=== PATIENT | male | born 1950 | race Caucasian/White ===

== ENCOUNTER 2017-12-05 09:54 | Outpatient (CLI) | payer MEDICARE ==
[~2017-12-05 09:54] MED LIST: FURO-145 PO; GLYB5TAB7 PO; INSU100C7 SQ; LEVO500T90 PO
[2017-12-05] MEDS ORDERED: CARI350T27 PO (15:59)
[2017-12-05] MEDS ORDERED: TERA5CAP4 PO (15:59)
[2017-12-05] MEDS ORDERED: LEVO250T59 PO (15:59)
[2017-12-05] MEDS ORDERED: CARV12.52 PO (15:59)
[2017-12-05] MEDS ORDERED: BUME1TAB4 PO (15:59)
[2017-12-05] MEDS ORDERED: FLUD0.1T PO (15:59)
[2017-12-05] MEDS ORDERED: AMLO5TAB7 PO (15:59)
[2017-12-05] MEDS ORDERED: FURO40TA5 PO (15:59)
== END 2017-12-05 23:59 | disposition home health service (06) ==
LOC: WOU 09:54
PROVIDERS: ATTEND Podiatrist Foot & Ankle Surgery
DX: E11.621 Type 2 diabetes mellitus with foot ulcer (principal); L97.416 Non-pressure chronic ulcer of right heel and midfoot with bone involvement without evidence of necrosis; L97.516 Non-pressure chronic ulcer of other part of right foot with bone involvement without evidence of necrosis; L97.423 Non-pressure chronic ulcer of left heel and midfoot with necrosis of muscle; E11.22 Type 2 diabetes mellitus with diabetic chronic kidney disease; E11.40 Type 2 diabetes mellitus with diabetic neuropathy, unspecified; I12.9 Hypertensive chronic kidney disease with stage 1 through stage 4 chronic kidney disease, or unspecified chronic kidney disease; N18.9 Chronic kidney disease, unspecified; Z99.2 Dependence on renal dialysis; L03.116 Cellulitis of left lower limb; L03.115 Cellulitis of right lower limb; B95.2 Enterococcus as the cause of diseases classified elsewhere; B96.4 Proteus (mirabilis) (morganii) as the cause of diseases classified elsewhere; M72.6 Necrotizing fasciitis; M86.171 Other acute osteomyelitis, right ankle and foot; I89.0 Lymphedema, not elsewhere classified; S81.811A Laceration without foreign body, right lower leg, initial encounter; X58.XXXA Exposure to other specified factors, initial encounter; Y92.89 Other specified places as the place of occurrence of the external cause
CPT/HCPCS: 11043; 11044; 11047; 82962; 87070 ×2; 87075 ×2; 87076; 87077; 87186 ×2; A6253; A6402 ×3; G0463

== ENCOUNTER 2017-12-05 11:37 | Inpatient (IN) | payer MEDICARE ==
[~2017-12-05] VITALS: Ht 182.9 cm; Wt 106.1 kg
[2017-12-05 12:30] VITALS: BP 113/50
--- NOTE | 2017-12-05 13:24 | NUR ---
PER DR REID - ADMIT TO MED SURG PER [facility]. DX WET GANGRENE/OSTEOMYLITIS/ INFECTED FOOT ULCERATION, CONDITION STABLE, VITALS PER ROUTINE, VANCOMYCIN 1 G IV Q 12 HOURS, ZOSYN 3.375 GM IV Q 8 HOURS, PHARMACY TO DOSE BOTH, DAKINS 0.125%IRRIGATE TID PRADEEP FEET WITH WET TO DRY DRESSING, XRAY OF 3 VIEWS BILATERAL FEET, EKG, 1 CHEST XRAY, CBC CUFF SETTER LOCKSTITCH, PT, PTT, INR, HGA1C, SEDIMENTATION RATE, CRP
[2017-12-05] MEDS ORDERED: VANCOMYCIN 1 GM in IV NS 0.9% 250 ML IV SCH (13:30)
--- NOTE | 2017-12-05 14:00 | NUR ---
PATIENT STABLE. NONLABORED BREATHING NOTED ON ROOM AIR. NO SIGNS OF DISTRESS. DENYING CHEST PAIN. IV SITE ON RIGHT AC 20 PATENT AND INTACT. NO AV SHUNTS ON EXTREMITIES. RIGHT CHESTWALL HD CATHETER WITH DRESSING INTACT
[2017-12-05] MEDS ORDERED: VANCOMYCIN 1 GM in IV D5W 250 ML IV ONE (15:00)
[2017-12-05 15:48] LABS: ALBUMIN 1.8 g/dL (3.4-5.0); BILIRUBIN,TOTAL 0.4 mg/dL (0.2-1.0); CALCIUM, SERUM 8.1 mg/dL (8.5-10.1); CREATININE 4.5 mg/dL (0.6-1.3); POTASSIUM 3.3 mmol/L (3.5-5.1)
[2017-12-05 15:49] LABS: C-REACTIVE PROTEIN 13.1 mg/dL (0.0-0.9)
[2017-12-05] MEDS ORDERED: CARI350T27 PO (15:59)
[2017-12-05] MEDS ORDERED: BUME1TAB4 PO (15:59)
[2017-12-05] MEDS ORDERED: AMLO5TAB7 PO (15:59)
[2017-12-05] MEDS ORDERED: FURO40TA5 PO (15:59)
[2017-12-05] MEDS ORDERED: TERA5CAP4 PO (15:59)
[2017-12-05] MEDS ORDERED: CARV12.52 PO (15:59)
[2017-12-05] MEDS ORDERED: FLUD0.1T PO (15:59)
[2017-12-05] MEDS ORDERED: LEVO250T59 PO (15:59)
[2017-12-05 16:00] VITALS: BP 119/55
[2017-12-05 16:02] LABS: INR 1.08 (0.87-1.13)
[2017-12-05 16:05] LABS: EOSINOPHILS % (AUTO) 0.3 % (0.0-6.0); HEMATOCRIT 22 % (39-51); HEMOGLOBIN 7.2 g/dL (13.5-17.5); LYMPHOCYTES # (AUTO) 0.7 /CMM (0.8-4.8); LYMPHOCYTES % (AUTO) 5.2 % (20.0-44.0); MEAN CORPUSCULAR HGB CONC 33 g/dl (31.0-36.0); MEAN CORPUSCULAR VOLUME 82 fL (80-96); MONOCYTES # (AUTO) 0.6 /CMM (0.1-1.30); MONOCYTES % (AUTO) 4.1 % (2.0-12.0); NEUTROPHILS # (AUTO) 12.6 /CMM (1.8-8.9); NEUTROPHILS % (AUTO) 90.4 % (43.0-81.0); PLATELET COUNT (AUTO) 411 /CMM (150-450); RDW COEFFICIENT OF VARIATION 15.5 (11.5-15.0); RED BLOOD CELL COUNT(AUTO) 2.62 MIL/uL (4.5-6.0); WHITE BLOOD COUNT (AUTO) 13.9 K/uL (4.3-11.0)
--- NOTE | 2017-12-05 17:33 | NUR ---
SPOKE TO NOHELIA FROM PHARMACY- ADMINISTER 1 GM VANCO AFTER HEMODIALYSIS
[2017-12-05] MEDS ORDERED: PIPERACILLIN /TAZOBACTAM 3.375 G in IV D5W 100 ML IV SCH (18:00)
[2017-12-05] MEDS ORDERED: FEE PK DOSING 1 MIN EA MC ONE (18:15)
--- NOTE | 2017-12-05 18:25 | NUR ---
RN NOTES: AFIB 74 ON EKG. PATIENT STABLE. NONLABORE BREATHING NOTED ON ROOM AIR. DENYING CHEST PAIN. STABLE. TOÑO LU NP NOTIFIED
[2017-12-05 18:35] VITALS: BP 108/52
--- NOTE | 2017-12-05 18:42 | NUR ---
SPOKE TO JOYCE FROM PHARMACY, NEW DOSAGES OF ZOSYN AND VANCO TO BE ADMINISTERED AFTER DIALYSIS
[2017-12-05] MEDS ORDERED: ONDANSETRON HCL/PF 4 MG/2 ML VIAL IVP PRN (19:30)
[2017-12-05] MEDS ORDERED: ACETAMINOPHEN 325 MG TABLET PO PRN (19:30)
[2017-12-05] MEDS ORDERED: TEMAZEPAM 15 MG CAPSULE PO PRN (19:30)
[2017-12-05] MEDS ORDERED: HYDROCODONE/APAP 10/325MG 1 EA TABLET PO PRN (19:30)
[2017-12-05] MEDS ORDERED: MAGNESIUM HYDROXIDE 30 ML UDC PO PRN (19:30)
[2017-12-05] MEDS ORDERED: DEXTROSE 50%-WATER 50 ML DISP.SYRIN IV PRN (19:30)
[2017-12-05] MEDS ORDERED: MAG HYDROX/AL HYDROX/SIMETH 30 ML UDC PO PRN (19:30)
[2017-12-05] MEDS ORDERED: VANCOMYCIN 1.25 GM in IV D5W 500 ML IV ONE (19:30)
[2017-12-05] MEDS ORDERED: LORAZEPAM INJ 2 MG/ML VIAL IV PRN (19:30)
[2017-12-05] MEDS ORDERED: HYDROCODONE/APAP 5/325MG 1 EACH TABLET PO PRN (19:30)
[2017-12-05] MEDS ORDERED: CARISOPRODOL 350 MG TABLET PO PRN (19:30)
--- NOTE | 2017-12-05 19:40 | NUR ---
RN NOTES PATIENT ADMITTED FROM [facility], A PATIENT OF DR REID'S. SP WOUND DEBRIDEMENT TODAY ON RIGHT LATERAL SIDE OF FOOT WELL LEFT LATERAL SIDE OF LEFT FOOT- PER REPORT FROM WOUND CARE CLINIC NURSE. DRESSING INTACT. PATIENT DENYING PAIN. PATIENT STABLE THROUGHOUT SHIFT. IV SITE ON RIGHT AC PATENT AND INTACT. PATIENT PERRLA. AOX2-3. DENYING CHEST PAIN THROUGHOUT SHIFT. ABLE TO TOLERATE DIET. NO SIGNS OF ASPIRATION. PATIENT REFUSING SKIN PICTURES TO BE TAKEN. BENEFITS AND RISKS EXPLAINED. PATIENT AFEBRILE. THROUGHOUT SHIFT. TOLERATED DIALYSIS TODAY WITH AN OUTPUT OF 1.7L. VS WNL AFTER DIALYSIS. PERMCATH WITH DRESSING INTACT ON RIGHT CHEST WALL. BED IN LOWEST LOCKED POSITION. CALL LIGHT WITHIN REACH. ENDORSED TO NEXT SHIFT
[2017-12-05 20:00] VITALS: BP 107/56
[2017-12-05] MEDS ORDERED: EPOETIN ALFA (10,000 UNIT) 10,000 UNIT/ML VIAL IV ONE (20:00)
[2017-12-05] MEDS: PIPERACILLIN /TAZOBACTAM 2.25 G in IV NS 0.9% 50 ML IV SCH (21:21)
[2017-12-05] MEDS: BLOOD SUGAR DIAGNOSTIC 1 EACH STRIP IN SCH (22:10)
[2017-12-05] MEDS: INSULIN REGULAR, HUMAN 100 UNIT/ML 3 ML VIAL SQ PRN (23:03)
[2017-12-06] VITALS (7 sets, daily range): BP systolic 70–110; BP diastolic 32–56
--- NOTE | 2017-12-06 02:04 | NUR ---
MS RN NOTES 1 UNIT PRBC STARTED. VSS. AFEBRILE. WILL CONTINUE TO MONITOR.
--- NOTE | 2017-12-06 02:20 | NUR ---
MS RN NOTES 1ST UNIT PRBC TRANSFUSING WELL. NO S/SX OF TRANSFUSION RXN NOTED. VSS. AFEBRILE. WILL CONTINUE TO MONITOR.
--- NOTE | 2017-12-06 04:50 | NUR ---
MS RN NOTES 1ST UNIT PRBC COMPLETED. NO S/SX OF TRANSFUSION RXN NOTED. AFEBRILE. WILL CONTINUE TO MONITOR.
[2017-12-06] MEDS: PIPERACILLIN /TAZOBACTAM 2.25 G in IV NS 0.9% 50 ML IV SCH ×3 (05:05→21:06)
--- NOTE | 2017-12-06 05:26 | NUR ---
MS RN NOTES BP 70/32. NOTIFIED DR BENAVIDEZ FIBER DESIGN ENGINEER FOR [facility]. MD MADE AWARE RE PT'S CONDITION. WITH NEW ORDERS MADE. ORDERS NOTED AND CARRIED OUT. WILL CONTINUE TO MONITOR.
[2017-12-06] MEDS ORDERED: IV NS 0.9% 1,000 ML IV PRN (05:30)
[2017-12-06] MEDS ORDERED: IV NS 0.9% 250 ML IV ONE (05:30)
[2017-12-06] MEDS: BLOOD SUGAR DIAGNOSTIC 1 EACH STRIP IN SCH ×4 (06:06→21:06)
--- NOTE | 2017-12-06 06:30 | NUR ---
MS RN NOTES AWAKE & RESPONSIVE. NOT IN ANY DISTRESS. NO SOB NOTED. DENIES ANY PAIN OR DISCOMFORT AT THIS TIME. WITH IVF INFUSING WELL. AM CARE DONE. MONITORED ACCORDINGLY. CALL LIGHT WITHIN REACH. BED IN LOWEST POSITION. SR UP X 2 FOR SAFETY. WILL ENDORSE TO NEXT SHIFT.
[2017-12-06] MEDS: INSULIN REGULAR, HUMAN 100 UNIT/ML 3 ML VIAL SQ PRN ×2 (06:40→17:45)
[2017-12-06 07:16] LABS: EOSINOPHILS % (AUTO) 0.2 % (0.0-6.0); HEMATOCRIT 22 % (39-51); HEMOGLOBIN 7.3 g/dL (13.5-17.5); LYMPHOCYTES # (AUTO) 0.7 /CMM (0.8-4.8); LYMPHOCYTES % (AUTO) 3.7 % (20.0-44.0); MEAN CORPUSCULAR HGB CONC 33 g/dl (31.0-36.0); MEAN CORPUSCULAR VOLUME 83 fL (80-96); MONOCYTES # (AUTO) 0.5 /CMM (0.1-1.30); MONOCYTES % (AUTO) 3.1 % (2.0-12.0); NEUTROPHILS # (AUTO) 16.5 /CMM (1.8-8.9); PLATELET COUNT (AUTO) 295 /CMM (150-450); RDW COEFFICIENT OF VARIATION 14.8 (11.5-15.0); RED BLOOD CELL COUNT(AUTO) 2.65 MIL/uL (4.5-6.0); WHITE BLOOD COUNT (AUTO) 17.7 K/uL (4.3-11.0)
--- NOTE | 2017-12-06 07:30 | NUR ---
MS/RN Patient received Patient received from security shift supervisor. All needs attended, dressing to both lower extremities due and intact. Call light within reach, will continue to monitor and ensure safety.
[2017-12-06 07:40] LABS: CALCIUM, SERUM 7.5 mg/dL (8.5-10.1); CREATININE 3.9 mg/dL (0.6-1.3); MAGNESIUM 1.7 mg/dL (1.8-2.4); PHOSPHORUS 2.2 mg/dL (2.5-4.9); POTASSIUM 3.1 mmol/L (3.5-5.1)
[2017-12-06 07:41] LABS: THYROID STIMULATING HORMONE 2.83 uIU/mL (0.358-3.74)
[2017-12-06] MEDS: BUMETANIDE (1 MG) 1 MG TABLET PO SCH ×2 (09:00→17:00)
[2017-12-06] MEDS ORDERED: CARVEDILOL 12.5 MG TABLET PO SCH (09:00)
[2017-12-06] MEDS: TERAZOSIN HCL 5 MG CAPSULE PO SCH ×2 (09:00→17:00)
[2017-12-06] MEDS ORDERED: AMLODIPINE BESYLATE 5 MG TABLET PO SCH (09:00)
[2017-12-06] MEDS ORDERED: DAKINS QUARTER STRENGTH (0.125%) 480 ML BOTTLE TOP SCH (09:00)
[2017-12-06] MEDS ORDERED: FUROSEMIDE 40 MG TABLET PO SCH (09:00)
[2017-12-06] MEDS: FLUDROCORTISONE 0.1 MG TABLET PO SCH ×2 (09:11→17:44)
--- NOTE | 2017-12-06 09:19 | NUR ---
MS/RN Medications Blood pressure medications held due to hypotension (105/56)
[2017-12-06] MEDS ORDERED: POTASSIUM CHLORIDE 20 MEQ TAB.PRT.SR PO SCH (09:30)
--- NOTE | 2017-12-06 12:00 | NUR ---
MS/RN Magnesium level Magnesium level 1.7, replaced with 1gram.
[2017-12-06] MEDS ORDERED: Magnesium 1GM/D5W 100ML PREMIX 100 ML IV SCH (13:00)
--- NOTE | 2017-12-06 15:24 | NUR ---
MS/RN Dressing change Dressings changed and redressed as ordered.
--- NOTE | 2017-12-06 17:10 | NUR ---
MS/RN Blood sugar Blood sugar at 5p - 268 - 6 units insulin given as per sliding scale.
--- NOTE | 2017-12-06 18:21 | NUR ---
MS/RN End note No changes in care at tis time, all needs attended. Dressings to bilateral lower extremities remain dry and intact. All medications administered as ordered. Safety measures in place, will continue to monitor and ensure safety.
[2017-12-06] MEDS: METOPROLOL TARTRATE 25 MG TABLET PO SCH (21:00)
[2017-12-07] MEDS: PIPERACILLIN /TAZOBACTAM 2.25 G in IV NS 0.9% 50 ML IV SCH ×3 (05:59→21:16)
[2017-12-07] MEDS: BLOOD SUGAR DIAGNOSTIC 1 EACH STRIP IN SCH ×4 (06:00→21:15)
[2017-12-07] MEDS: INSULIN REGULAR, HUMAN 100 UNIT/ML 3 ML VIAL SQ PRN ×4 (06:41→21:16)
[2017-12-07 07:01] LABS: BASOPHILS % (AUTO) 0.2 % (0.0-2.0); EOSINOPHILS % (AUTO) 1.3 % (0.0-6.0); HEMATOCRIT 21 % (39-51); LYMPHOCYTES # (AUTO) 1.3 /CMM (0.8-4.8); LYMPHOCYTES % (AUTO) 12.9 % (20.0-44.0); MEAN CORPUSCULAR HGB CONC 33 g/dl (31.0-36.0); MEAN CORPUSCULAR VOLUME 82 fL (80-96); MONOCYTES # (AUTO) 0.5 /CMM (0.1-1.30); MONOCYTES % (AUTO) 4.5 % (2.0-12.0); NEUTROPHILS # (AUTO) 8.2 /CMM (1.8-8.9); NEUTROPHILS % (AUTO) 81.1 % (43.0-81.0); PLATELET COUNT (AUTO) 370 /CMM (150-450); RDW COEFFICIENT OF VARIATION 15.3 (11.5-15.0); RED BLOOD CELL COUNT(AUTO) 2.56 MIL/uL (4.5-6.0); WHITE BLOOD COUNT (AUTO) 10.1 K/uL (4.3-11.0)
[2017-12-07 07:11] LABS: HEMOGLOBIN 6.9 g/dL (13.5-17.5)
[2017-12-07 07:12] LABS: CALCIUM, SERUM 7.7 mg/dL (8.5-10.1); CREATININE 4.7 mg/dL (0.6-1.3); PHOSPHORUS 3.1 mg/dL (2.5-4.9); POTASSIUM 3.4 mmol/L (3.5-5.1)
[2017-12-07 07:36] LABS: IRON, SERUM 45 ug/dl (50-175); TOTAL IRON BINDING CAPACITY 136 ug/dl (250-450)
[2017-12-07 08:00] VITALS: BP 106/58
--- NOTE | 2017-12-07 08:00 | NUR ---
MS 2 RN AM NOTES RECEIVED PATIENT DENYING PAIN OR DISTRESS.IV SITE ON RIGHT AC PATENT AND INTACT. PATIENT PERRLA. AOX2-3. ABLE TO TOLERATE DIET. NO SIGNS OF ASPIRATION. PATIENT AFEBRILE. THROUGHOUT SHIFT. TOLERATED DIALYSIS TODAY WITH AN OUTPUT OF 1.7L. VS WNL AFTER DIALYSIS.WITH BLE DRESSING INTACT AND DRY. WITH RT PERMCATH WITH DRESSING INTACT ON RIGHT CHEST WALL. BED IN LOWEST LOCKED POSITION. CALL LIGHT WITHIN REACH.
[2017-12-07 08:10] LABS: FERRITIN 1162 ng/mL (8-388)
[2017-12-07] MEDS: FLUDROCORTISONE 0.1 MG TABLET PO SCH ×2 (08:58→17:55)
[2017-12-07] MEDS: BUMETANIDE (1 MG) 1 MG TABLET PO SCH ×2 (08:58→17:55)
[2017-12-07] MEDS: TERAZOSIN HCL 5 MG CAPSULE PO SCH ×2 (09:00→17:00)
[2017-12-07] MEDS: METOPROLOL TARTRATE 25 MG TABLET PO SCH ×2 (09:00→21:00)
[2017-12-07] MEDS: DAKINS QUARTER STRENGTH (0.125%) 480 ML BOTTLE TOP SCH ×3 (09:05→17:56)
[2017-12-07 09:17] LABS: LYMPHOCYTES % (MANUAL) 7 % (16-48); MONOCYTES % (MANUAL) 5 % (0-11.0); NEUTROPHILS % (MANUAL) 88 (42-76)
--- NOTE | 2017-12-07 10:25 | NUR ---
PT WAS SEEN BY DR PADILLA AND DID STAGE DEBRIDEMENT OF PRADEEP FEET TODAY.PT REFUSED ANY PAIN MEDS WHEN OFFERED EVEN WITH C/O BLE PAIN.
--- NOTE | 2017-12-07 10:31 | NUR ---
WOUND CARE CONSULT WOUND CARE RECEIVED CONSULT FOR LEFT FOOT CELLULITIS. WOUND CARE WILL DEFER CONSULT AND ALL TREATMENT PLANS TO PODIATRY DR REINA AT THIS TIME. PATIENT WITH SHAYNE AT 17. ALL PRESSURE ULCER PREVENTION MEASURES NOTED TO BE IN PLACE AT THIS TIME.
[2017-12-07 11:27] VITALS: BP 108/61
--- NOTE | 2017-12-07 11:27 | NUR ---
STARTED TRANSFUSING FIRST UNIT PRBC WITH STABLE V/S.BLOOD VERIFIED WITH CO RN AND ADMINISTERED WITH HEMODIALYSIS PROCEDURE.WILL CONTINUE TO MONITOR FOR ANY ADVERSE REACTIONS.
--- NOTE | 2017-12-07 11:27 | NUR ---
DR DIOMEDES CANO AWARE OF HYPOKALEMIA.K+3.4 WILL ADJUST DIALYSATE DURING HEMODIALYSIS.
[2017-12-07 11:45] VITALS: BP 108/61
--- NOTE | 2017-12-07 11:45 | NUR ---
COMPLETED BLOOD TRANSFUSION WITH HEMODIALYSIS STILL ONGOING WITH STABLE V/S BP 117/63 HR 69 WITH NO A/R NOTED.PT DENIES ANY DISCOMFORT OR DISTRESS.WILL CONTINUE TO MONITOR.
--- NOTE | 2017-12-07 13:24 | NUR ---
COMPLETED HEMODIALYSIS PROCEDURE WITH STABLE V/S.WILL ADMINISTER VANCO IV ORDERED POST HD PROCEDURE.
[2017-12-07] MEDS ORDERED: VANCOMYCIN 1 GM in IV D5W 250 ML IV PRN (14:00)
--- NOTE | 2017-12-07 14:52 | NUR ---
DELAYED IN ADMINISTERING ZOSYN IV ATB DUE TO HEMODIALYSIS PROCEDURE AND ADMINISTERED VANCO IV FIRST PRIOR TO ZOSYN.
[2017-12-07] MEDS ORDERED: EPOETIN ALFA (10,000 UNIT) 10,000 UNIT/ML VIAL IV ONE (15:00)
[2017-12-07 16:00] VITALS: BP 113/65
[2017-12-07] MEDS: PANTOPRAZOLE 40 MG TABLET.DR PO SCH (19:08)
--- NOTE | 2017-12-07 19:40 | NUR ---
RN INITIAL NOTES: RECEIVED REPORT FROM JUVENTINO Rose PT IN BED, AWAKE, A/O X4, ON RA RESPIRATION EVEN AND UNLABORED, IV ACCESS PATENT AND FLUSHING WELL, ON HL. S/P 1UNIT PRBC TODAY, S/P STAGED DEBRIDEMENT OF INFECTED FEET, BY DR REINA, DRESSING IN PLACED, NOTED SCANT AMOUNT OF BLOOD IN THE PADS, DRESSING REINFORCED, PADS WERE CHANGED. SAFETY PRECAUTIONS FOR FALL INITIATED, CALL LIGHT IN REACH, WILL CONTINUE MONITORING PT
[2017-12-07 20:00] VITALS: BP 108/58
--- NOTE | 2017-12-07 20:19 | NUR ---
PT REFUSAL FOR EGD AND PROTONIX: DISCUSSED WITH PT REGARDING PLAN FOR EGD BY GI SPECIALIST AND NEW ORDER FOR MEDICATION CALLED PROTONIX, PER PT HE SPOKE WITH THE BAND SAWYER AND STATED HE DOESNT FEEL LIKE HE NEEDS TO THE EGD, AND ALSO REFUSING FOR MEDICATION, EDUCATION PROVIDED TO THE PT, PT REFUSED TO SIGNED ANY CONSENT.
--- NOTE | 2017-12-07 20:20 | NUR ---
RN NOTES: PT REFUSED TO TAKE PICTURES OF HIS WOUND. PT S/P DEBRIDEMENT 12/07/[address] REINA DRESSING IN PLACED. EDUCATION PROVIDED TO THE PT.
--- NOTE | 2017-12-07 21:00 | NUR ---
BS 173: BLLOD SUGAR CHECKED AND RESULT IS 173, 3UNITS OF INSULIN GIVEN PER SLIDING SCALE, WILL MONITOR PT FOR ANY S/S OF HYPOGLYCEMIA
[2017-12-07 21:24] VITALS: BP 113/59
--- NOTE | 2017-12-07 21:25 | NUR ---
REFUSAL FOR LOPRESSOR: PT'S VS TAKEN FOLLOWS BP 113/59 HR 78 SPO2 96% ON RA PT REFUSED LOPRESSOR STATED HE'S BP IS GOOD, AND DOESNT NEED ANY BP MEDICATION IT MIGHT DROP HIS BLOOD PRESSURE.
--- NOTE | 2017-12-07 22:19 | NUR ---
RN NOTES: MESSAGED PACKER FUSER KHURRAM REGARDING PT'S REFUSAL FOR EGD, AWAITING RESPONSE
[2017-12-08] MEDS: PIPERACILLIN /TAZOBACTAM 2.25 G in IV NS 0.9% 50 ML IV SCH ×3 (05:48→22:36)
[2017-12-08] MEDS: BLOOD SUGAR DIAGNOSTIC 1 EACH STRIP IN SCH ×4 (05:48→22:36)
[2017-12-08] MEDS: INSULIN REGULAR, HUMAN 100 UNIT/ML 3 ML VIAL SQ PRN ×4 (05:49→22:36)
--- NOTE | 2017-12-08 05:50 | NUR ---
BS 167: BS 167, 3UNITS OF INSULIN GIVEN PER SLIDING SCALE
--- NOTE | 2017-12-08 06:53 | NUR ---
RN NOTES: PT REFUSED FOR DRESSING CHANGE, STATED HE WAS TOLD BY MD THAT MD WILL DO ANOTHER DEBRIDEMENT TODAY.
--- NOTE | 2017-12-08 06:54 | NUR ---
RN CLOSING NOTES: PT IN BED, AWAKE, DENIES ANY PAIN OR DISCOMFORT THROUGHOUT THE SHIFT. BILATERAL FEET DRESSING REINFORCED, OFFLOADED. IV ACCESS REMAINS PATENT AND FLUSHING WELL, ON HL. RIGHT CW HD CATH REMAINS IN PLACED COVERED WITH DRESSING. VS REMAINS STABLE, NEEDS ATTENDED. SAFETY PRECAUTION FOR FALL REMAINS ENGAGED, CALL LIGHT IN REACH, WILL ENDORSE TO DAY RN FOR AMINA.
[2017-12-08 07:18] LABS: BASOPHILS % (AUTO) 0.2 % (0.0-2.0); EOSINOPHILS % (AUTO) 1.5 % (0.0-6.0); HEMATOCRIT 23 % (39-51); HEMOGLOBIN 7.5 g/dL (13.5-17.5); LYMPHOCYTES # (AUTO) 1.4 /CMM (0.8-4.8); MEAN CORPUSCULAR HGB CONC 33 g/dl (31.0-36.0); MEAN CORPUSCULAR VOLUME 83 fL (80-96); MONOCYTES # (AUTO) 0.6 /CMM (0.1-1.30); MONOCYTES % (AUTO) 6.3 % (2.0-12.0); NEUTROPHILS # (AUTO) 6.8 /CMM (1.8-8.9); PLATELET COUNT (AUTO) 325 /CMM (150-450); RDW COEFFICIENT OF VARIATION 16.3 (11.5-15.0); RED BLOOD CELL COUNT(AUTO) 2.72 MIL/uL (4.5-6.0); WHITE BLOOD COUNT (AUTO) 8.9 K/uL (4.3-11.0)
[2017-12-08 07:23] LABS: CALCIUM, SERUM 7.8 mg/dL (8.5-10.1); CREATININE 4.2 mg/dL (0.6-1.3); POTASSIUM 3.3 mmol/L (3.5-5.1)
[2017-12-08 08:00] VITALS: BP 111/59
--- NOTE | 2017-12-08 08:00 | NUR ---
MS 2 RN AM NOTES RECEIVED PATIENT DENYING PAIN OR DISTRESS.IV SITE ON RIGHT AC PATENT AND INTACT. PATIENT PERRLA. AOX2-3. PATIENT AFEBRILE.S/P STAGED DEBRIDEMENT OF BLE WITH BLE DRESSING INTACT AND DRY. WITH RT PERMCATH WITH DRESSING INTACT ON RIGHT CHEST WALL. BED IN LOWEST LOCKED POSITION. CALL LIGHT WITHIN REACH.
[2017-12-08] MEDS: FLUDROCORTISONE 0.1 MG TABLET PO SCH ×2 (08:55→17:59)
[2017-12-08] MEDS: BUMETANIDE (1 MG) 1 MG TABLET PO SCH ×2 (08:55→17:59)
[2017-12-08] MEDS: METOPROLOL TARTRATE 25 MG TABLET PO SCH ×2 (08:55→21:00)
[2017-12-08] MEDS: PANTOPRAZOLE 40 MG TABLET.DR PO SCH (08:55)
[2017-12-08] MEDS: TERAZOSIN HCL 5 MG CAPSULE PO SCH ×2 (08:55→17:00)
[2017-12-08] MEDS: DAKINS QUARTER STRENGTH (0.125%) 480 ML BOTTLE TOP SCH ×3 (08:56→18:00)
[2017-12-08 16:08] VITALS: BP 121/64
--- NOTE | 2017-12-08 18:00 | NUR ---
PT REFUSED FOR WOUND TX AND DRESSING CHANGE.ENDORSED TO NIGHT NURSE CARE.CALL LIGHT WITHIN REACH.
--- NOTE | 2017-12-08 19:50 | NUR ---
RN INITIAL NOTES: RECEIVED REPORT FROM JUVENTINO Rose, PT IN BED, AWAKE, A/O X4, ON RA RESPIRATION EVEN AND UNLABORED, IV ACCESS PATENT AND FLUSHING WELL, ON HL. S/P STAGED DEBRIDEMENT OF INFECTED FEET, BY DR REINA, DRESSING IN PLACED, NOTED SCANT AMOUNT OF BLOOD IN THE PADS, DRESSING REINFORCED, PADS WERE CHANGED.PT REFUSED DRESSING CHANGED, DESPITE GIVING EDUCTION. SAFETY PRECAUTIONS FOR FALL INITIATED, CALL LIGHT IN REACH, WILL CONTINUE MONITORING PT
[2017-12-08 20:00] VITALS: BP 125/72
--- NOTE | 2017-12-08 22:00 | NUR ---
BS 147: PT'S BLOOD SUGAR 147, PT REFUSED INSULIN COVERAGE, EDUCATION PROVIDED TO THE PT
[2017-12-08 22:45] VITALS: BP 115/68
[2017-12-08] MEDS ORDERED: METRONIDAZOLE 500MG/ NS 100ML 500 MG in PREMIX 1 EA IV SCH (23:00)
[2017-12-08] MEDS ORDERED: METRONIDAZOLE 500MG/ NS 100ML 100 ML IV ONE (23:11)
[2017-12-09] MEDS: PIPERACILLIN /TAZOBACTAM 2.25 G in IV NS 0.9% 50 ML IV SCH ×3 (05:26→21:33)
[2017-12-09 06:16] LABS: BASOPHILS % (AUTO) 0.3 % (0.0-2.0); HEMATOCRIT 23 % (39-51); HEMOGLOBIN 7.4 g/dL (13.5-17.5); LYMPHOCYTES # (AUTO) 1.3 /CMM (0.8-4.8); LYMPHOCYTES % (AUTO) 15.4 % (20.0-44.0); MEAN CORPUSCULAR HGB CONC 32 g/dl (31.0-36.0); MEAN CORPUSCULAR VOLUME 82 fL (80-96); MONOCYTES # (AUTO) 0.5 /CMM (0.1-1.30); MONOCYTES % (AUTO) 6.2 % (2.0-12.0); NEUTROPHILS # (AUTO) 6.3 /CMM (1.8-8.9); NEUTROPHILS % (AUTO) 77.1 % (43.0-81.0); PLATELET COUNT (AUTO) 322 /CMM (150-450); RDW COEFFICIENT OF VARIATION 16.3 (11.5-15.0); RED BLOOD CELL COUNT(AUTO) 2.78 MIL/uL (4.5-6.0); WHITE BLOOD COUNT (AUTO) 8.2 K/uL (4.3-11.0)
[2017-12-09] MEDS: BLOOD SUGAR DIAGNOSTIC 1 EACH STRIP IN SCH ×4 (06:17→21:34)
[2017-12-09] MEDS: INSULIN REGULAR, HUMAN 100 UNIT/ML 3 ML VIAL SQ PRN ×4 (06:18→21:48)
[2017-12-09 06:29] LABS: CALCIUM, SERUM 7.7 mg/dL (8.5-10.1); POTASSIUM 3.4 mmol/L (3.5-5.1)
--- NOTE | 2017-12-09 06:30 | NUR ---
RN NOTES: DRESSING CHANGED PERFORMED, USING DAKINS SOLUTION, BLE OFFLOADED, BED BATH PROVIDED TO THE PT
[2017-12-09] MEDS: DAKINS QUARTER STRENGTH (0.125%) 480 ML BOTTLE TOP SCH ×3 (07:02→17:10)
--- NOTE | 2017-12-09 07:37 | NUR ---
RN CLOSING NOTES: PT IN BED, AWAKE, DENIES ANY PAIN OR DISCOMFORT THROUGHOUT THE SHIFT. BILATERAL FEET DRESSING REMAINS C/D/I, NO ACTIVE BLEEDING NOTED. IV ACCESS REMAINS PATENT AND FLUSHING WELL, ON HL. RIGHT CW HD CATH REMAINS IN PLACED COVERED WITH DRESSING. VS REMAINS STABLE, NEEDS ATTENDED. SAFETY PRECAUTION FOR FALL REMAINS ENGAGED, CALL LIGHT IN REACH, WILL ENDORSE TO DAY RN FOR AMINA.
--- NOTE | 2017-12-09 07:40 | NUR ---
RN OPENING NOTES: PT IN BED, AWAKE, DENIES ANY PAIN OR DISCOMFORT AT THIS TIME. BILATERAL FEET DRESSING REMAINS C/D/I, NO ACTIVE BLEEDING NOTED. IV ACCESS REMAINS PATENT AND FLUSHING WELL, ON HL. RIGHT CW HD CATH REMAINS IN PLACED COVERED WITH DRESSING. VS REMAINS STABLE, NEEDS ATTENDED. SAFETY PRECAUTIONS IN PLACE, CALL LIGHT IN REACH, WILL CONTINUE TO MONITOR
[2017-12-09 08:00] VITALS: BP 119/67
[2017-12-09 08:42] VITALS: BP 119/67
[2017-12-09] MEDS: BUMETANIDE (1 MG) 1 MG TABLET PO SCH ×2 (08:42→16:52)
[2017-12-09] MEDS: PANTOPRAZOLE 40 MG TABLET.DR PO SCH (08:42)
[2017-12-09] MEDS: FLUDROCORTISONE 0.1 MG TABLET PO SCH ×2 (08:42→16:51)
[2017-12-09] MEDS: METOPROLOL TARTRATE 25 MG TABLET PO SCH ×2 (08:44→21:34)
[2017-12-09] MEDS: TERAZOSIN HCL 5 MG CAPSULE PO SCH ×2 (08:44→16:52)
[2017-12-09] MEDS ORDERED: METRONIDAZOLE 500MG/ NS 100ML 500 MG in PREMIX 1 EA IV SCH (09:00)
--- NOTE | 2017-12-09 10:05 | NUR ---
RN NOTES BLOOD PRESSURE MEDICATIONS HELD PT HAVING DIALYSIS TODAY, MD AWARE WILL CONTINUE TO MONITOR
--- NOTE | 2017-12-09 10:30 | NUR ---
RN NOTES BILATERAL FEET DEBRIDEMENT BY DR. HARE TOLERATED WELL WILL CONTINUE TO MONITOR
[2017-12-09] MEDS: FLUCONAZOLE (100 MG) 100 MG TABLET PO SCH (11:51)
[2017-12-09 15:37] VITALS: BP 125/70
[2017-12-09 15:49] VITALS: BP 125/70
[2017-12-09 15:52] VITALS: BP 125/59
[2017-12-09 16:17] VITALS: BP 122/55
[2017-12-09] MEDS: VANCOMYCIN 500 MG in IV D5W 100 ML IV PRN (17:19)
--- NOTE | 2017-12-09 19:00 | NUR ---
RN CLOSING NOTES: PT IN BED, ASLEEP EASILY AROUSABLE DURING CARE, DENIES ANY PAIN OR DISCOMFORT AT THIS TIME. BILATERAL FEET DRESSING REMAINS C/D/I, NO ACTIVE BLEEDING NOTED. IV ACCESS REMAINS PATENT INTACT AND FLUSHING WELL,NO REDNESS OR INFILTRATION NOTED. RIGHT CW HD CATH REMAINS IN PLACED COVERED WITH DRESSING. VS REMAINS STABLE, NEEDS ATTENDED. SAFETY PRECAUTIONS IN PLACE, CALL LIGHT IN REACH, WILL CONTINUE TO MONITOR AND ENDORSE TO NEXT SHIFT FOR CONTINUITY OF CARE
--- NOTE | 2017-12-09 20:03 | NUR ---
MS RN OPENING NOTE Patient was seen sitting upright in bed AAOx4, breathing comfortably on RA with no SOB, and no signs of acute distress. Patient received wound debridement to bilateral heels earlier today; both feet are wrapped with a dressing, which is clean, dry, and intact. Patient refused to have pictures taken of his wounds this evening and refused to have the dressing changed - will offer again later this shift. Peripheral IV in L wrist 20g is running NS at 5 ml/hr TKO. HD cath in right chest is clean, dry, and intact. Bedside commode is next to the patients bed; patient knows to call for help before getting up. Bed is in low/locked position, two side rails up, and call lau within reach. Will continue to monitor.
[2017-12-10 01:26] VITALS: BP 104/64
[2017-12-10] MEDS: PIPERACILLIN /TAZOBACTAM 2.25 G in IV NS 0.9% 50 ML IV SCH ×2 (05:27→12:37)
[2017-12-10 05:50] LABS: BASOPHILS % (AUTO) 0.3 % (0.0-2.0); EOSINOPHILS % (AUTO) 1.3 % (0.0-6.0); HEMATOCRIT 25 % (39-51); LYMPHOCYTES # (AUTO) 1.4 /CMM (0.8-4.8); LYMPHOCYTES % (AUTO) 14.1 % (20.0-44.0); MEAN CORPUSCULAR HGB CONC 33 g/dl (31.0-36.0); MEAN CORPUSCULAR VOLUME 83 fL (80-96); MONOCYTES # (AUTO) 0.6 /CMM (0.1-1.30); MONOCYTES % (AUTO) 6.7 % (2.0-12.0); NEUTROPHILS # (AUTO) 7.5 /CMM (1.8-8.9); NEUTROPHILS % (AUTO) 77.6 % (43.0-81.0); PLATELET COUNT (AUTO) 317 /CMM (150-450); RDW COEFFICIENT OF VARIATION 15.7 (11.5-15.0); RED BLOOD CELL COUNT(AUTO) 2.95 MIL/uL (4.5-6.0); WHITE BLOOD COUNT (AUTO) 9.7 K/uL (4.3-11.0)
[2017-12-10 06:04] LABS: CALCIUM, SERUM 7.9 mg/dL (8.5-10.1); CREATININE 5.2 mg/dL (0.6-1.3); POTASSIUM 4.1 mmol/L (3.5-5.1)
--- NOTE | 2017-12-10 06:41 | NUR ---
MS RN CLOSING NOTE Patient is sitting upright in bed AAOx4, breathing comfortably on RA with no SOB or signs of acute distress. Patient reported sleeping fairly well throughout the night. Peripheral IV in left wrist is 20g SL; Right chest HD cath is clean and dry. Patient has dressings on both feel for foot ulcers s/p wound debridement; patient refused dressing change and pictures this shift. Bed is in low/locked position, two side rails up, call lau within reach. All orders carried out and patient needs met. Patient care will be endorsed to day shift nurse.
--- NOTE | 2017-12-10 07:30 | NUR ---
MS RN OPENING NOTES RECEIVED PATIENT IN STABLE CONDITION. IN NO APPARENT DISTRESS. BEDSIDE RAILS ARE UPX2. BED IS LOCKED AND LOWERED. CALL LIGHT IS WITHIN REACH. IV LINE IS INTACT AND PATENT. WILL CONTINUE TO MONITOR.
[2017-12-10] MEDS: INSULIN REGULAR, HUMAN 100 UNIT/ML 3 ML VIAL SQ PRN ×4 (07:41→21:24)
[2017-12-10] MEDS: BLOOD SUGAR DIAGNOSTIC 1 EACH STRIP IN SCH ×4 (07:41→21:06)
[2017-12-10 08:00] VITALS: BP 106/61
[2017-12-10] MEDS: TERAZOSIN HCL 5 MG CAPSULE PO SCH ×2 (09:00→17:04)
[2017-12-10] MEDS: METOPROLOL TARTRATE 25 MG TABLET PO SCH ×2 (09:00→21:06)
[2017-12-10] MEDS: FLUCONAZOLE (100 MG) 100 MG TABLET PO SCH (09:47)
[2017-12-10] MEDS: BUMETANIDE (1 MG) 1 MG TABLET PO SCH ×2 (09:47→17:04)
[2017-12-10] MEDS: FLUDROCORTISONE 0.1 MG TABLET PO SCH ×2 (09:47→17:04)
[2017-12-10] MEDS: PANTOPRAZOLE 40 MG TABLET.DR PO SCH (09:47)
[2017-12-10] MEDS: DAKINS QUARTER STRENGTH (0.125%) 480 ML BOTTLE TOP SCH ×3 (09:50→17:04)
[2017-12-10 16:00] VITALS: BP 125/73
[2017-12-10] MEDS: LACTOBACILLUS RHAMNOSUS GG 1 EACH CAP.SPRINK PO SCH (17:04)
[2017-12-10] MEDS: NEPRO VAN 237 ML CAN PO SCH (18:30)
--- NOTE | 2017-12-10 18:48 | NUR ---
MS RN CLOSING NOTES PATIENT IS IN STABLE CONDITION. IN NO APPARENT DISTRESS. BEDSIDE RAILS ARE UPX2. BED IS LOCKED AND LOWERED. CALL LIGHT IS WITHIN REACH. IV LINE IS INTACT AND PATENT. WILL ENDORSE CARE TO WIPER BLENDER NURSE FOR AMINA.
[2017-12-10 20:00] VITALS: BP 109/66
--- NOTE | 2017-12-10 20:03 | NUR ---
MS RN OPENING NOTE The patient was seen sitting upright in bed AAOx4, breathing comfortably on RA with no SOB, and no signs of acute distress. Bilateral foot dressings are clean, dry, and intact - dressing change was done just prior to shift change; patient currently reports no pain. Peripheral IV in left wrist is running NS at 5 ml/hr TKO. PICC line is in left upper arm, clean and dry. HD chath in right chest is clean and dry. Bed is in low/locked position, two side rails up, and call lau within reach. Will continue to monitor.
--- NOTE | 2017-12-10 21:00 | NUR ---
DR. REINA AT THE BED SIDE. PERFORMED ANOTHER DEBRIDEMENT ON THE RIGHT LATERAL, RIGHT HEEL AND THE LEFT FOOT WOUND. PT TOLERATED THE PROCEDURE WELL . PICTURES TAKEN AND WOUNDS WERE COVERED APPROPRIATELY . WILL CONT TO MONITOR ,
[2017-12-10] MEDS: CEFTRIAXONE 2 G in IV D5W 100 ML IV SCH (21:05)
[2017-12-10] MEDS: METRONIDAZOLE 500 MG TABLET PO SCH (21:53)
[2017-12-11] MEDS: METRONIDAZOLE 500 MG TABLET PO SCH ×3 (05:46→20:44)
--- NOTE | 2017-12-11 06:35 | NUR ---
MS RN CLOSING NOTE Patient is AAOx4, breathing on RA with no SOB, and no signs of acute distress. Patient reports no complaints overnight. Bilateral foot dressings are clean, dry, and intact. Left upper PICC line clean, intact, and patent. HD cath in right chest is clean and intact. Bed is in low/locked position, two side rails up, and call lau within reach. All orders carried out and patient needs met. Patient care will be endorsed to day shift nurse.
[2017-12-11] MEDS: BLOOD SUGAR DIAGNOSTIC 1 EACH STRIP IN SCH ×4 (07:02→22:25)
--- NOTE | 2017-12-11 07:04 | NUR ---
MS RN NOTE - AccuCheck Patient's blood sugar this AM is 203, but patient is currently receiving HD and stated that he does not want his breakfast tray, therefore will hold insulin.
[2017-12-11 07:19] LABS: CALCIUM, SERUM 7.6 mg/dL (8.5-10.1); CREATININE 6.2 mg/dL (0.6-1.3); PHOSPHORUS 5.7 mg/dL (2.5-4.9); POTASSIUM 3.4 mmol/L (3.5-5.1)
--- NOTE | 2017-12-11 07:23 | NUR ---
MS/RN Patient received Patient received from night shift supervisor. HDX in progress at this time, all needs attended, will continue to monitor and ensure safety.
[2017-12-11 07:33] LABS: BASOPHILS % (AUTO) 0.3 % (0.0-2.0); EOSINOPHILS % (AUTO) 1.3 % (0.0-6.0); HEMATOCRIT 23 % (39-51); HEMOGLOBIN 7.4 g/dL (13.5-17.5); LYMPHOCYTES # (AUTO) 1.3 /CMM (0.8-4.8); LYMPHOCYTES % (AUTO) 12.7 % (20.0-44.0); MEAN CORPUSCULAR HGB CONC 33 g/dl (31.0-36.0); MEAN CORPUSCULAR VOLUME 83 fL (80-96); MONOCYTES # (AUTO) 0.6 /CMM (0.1-1.30); NEUTROPHILS % (AUTO) 79.7 % (43.0-81.0); PLATELET COUNT (AUTO) 291 /CMM (150-450); RED BLOOD CELL COUNT(AUTO) 2.74 MIL/uL (4.5-6.0); WHITE BLOOD COUNT (AUTO) 10.1 K/uL (4.3-11.0)
[2017-12-11 08:00] VITALS: BP 97/47
[2017-12-11] MEDS: NEPRO VAN 237 ML CAN PO SCH ×2 (08:00→17:00)
[2017-12-11 08:02] VITALS: BP 97/49
[2017-12-11] MEDS: TERAZOSIN HCL 5 MG CAPSULE PO SCH ×2 (09:00→17:00)
[2017-12-11] MEDS: VIT B CMPLX 3/FA/VIT C/BIOTIN 1 TAB TABLET PO SCH (09:00)
[2017-12-11] MEDS: METOPROLOL TARTRATE 25 MG TABLET PO SCH ×2 (09:00→20:42)
[2017-12-11] MEDS: BUMETANIDE (1 MG) 1 MG TABLET PO SCH ×2 (09:00→17:00)
--- NOTE | 2017-12-11 09:00 | NUR ---
MS/RN Medications Morning medications held at this time as patient still receiving HDX.
[2017-12-11] MEDS: PANTOPRAZOLE 40 MG TABLET.DR PO SCH (10:21)
[2017-12-11] MEDS: LACTOBACILLUS RHAMNOSUS GG 1 EACH CAP.SPRINK PO SCH ×2 (10:21→17:15)
[2017-12-11] MEDS: FLUDROCORTISONE 0.1 MG TABLET PO SCH ×2 (10:21→17:16)
[2017-12-11] MEDS: DAKINS QUARTER STRENGTH (0.125%) 480 ML BOTTLE TOP SCH ×3 (10:22→17:15)
[2017-12-11] MEDS: FLUCONAZOLE (100 MG) 100 MG TABLET PO SCH (10:26)
--- NOTE | 2017-12-11 11:15 | NUR ---
MS/RN S/B Dr Diaz Seen by Dr Diaz - bedside debridement performed, clean pressure dressing applied.
--- NOTE | 2017-12-11 12:09 | NUR ---
MS/RN Blood sugar Blood sugar at noon 286, insulin coverage administered as per sliding scale.
[2017-12-11] MEDS: INSULIN REGULAR, HUMAN 100 UNIT/ML 3 ML VIAL SQ PRN ×3 (12:23→22:31)
[2017-12-11] MEDS: VANCOMYCIN 500 MG in IV D5W 100 ML IV PRN (13:03)
--- NOTE | 2017-12-11 13:14 | NUR ---
MS/RN Vancomycin Vanco level 16 - 500mg administered post hemodialysis.
[2017-12-11 16:00] VITALS: BP 101/55
--- NOTE | 2017-12-11 16:00 | NUR ---
MS/RN S/B Barbara Fulton Seen by CRANE RIGGER - made aware of low H&H, no orders to transfuse. All orders carried out, patient updated as to plan of care and in agreement. Will continue to monitor and ensure safety. Will endorse to shift supervisor.
--- NOTE | 2017-12-11 18:33 | NUR ---
MS/RN End note No changes in condition at this time, dressings to both feet remain dry and intact. Patient encouraged to to keep legs elevated whilst in bed. All medications administered as ordered. Will continue to monitor and ensure safety. Will endorse to shift leader.
--- NOTE | 2017-12-11 19:30 | NUR ---
MS RN NOTES RECEIVED ON BED A/O X4,BREATHING REGULAR,TERRI PAIN AT THE MOMENT.PICC LINE IN PLACE LUE,WITH HD CATH RIGHT CHEST WALL.BILATERAL FOOT WITH DRESSING INTACT,NOTED DISCHARGES ON RIGHT FOOT.MONITORED FOR PAIN,CALL LIGHT IN REACH,NEEDS ANTICIPATED.
[2017-12-11 19:53] VITALS: BP 105/53
[2017-12-11 20:00] VITALS: BP 119/72
[2017-12-11] MEDS: CEFTRIAXONE 2 G in IV D5W 100 ML IV SCH (20:44)
--- NOTE | 2017-12-11 22:00 | NUR ---
MS RN NOTES ACCU-CHECK BLOOD SUGAR CHECK 175,REFUSED INSULIN COVERGE
--- NOTE | 2017-12-11 22:55 | NUR ---
MS RN NOTES KARSTEN SANDERS ACNP,ORDERED BLOOD TRANSFUSION ON THIS PATIENT,VERIFIED AND SHE SAID,JUST GO AHEAD AND GIVE IT,IF FLUID OVERLOAD ARISE TO JUST INFORMED WHOEVER IS RESIDENT HALL DIRECTOR TONIGHT.
--- NOTE | 2017-12-11 23:08 | NUR ---
MS RN NOTES MARICRUZ EMILY WAS PAGE AND INFORMED REGARDING BLOOD TRANSFUSION ORDERED BY KARSTEN VILLANUEVA,AND HE SAID TO GO AHEAD AND GIVE IT.
[2017-12-12 00:19] VITALS: BP 96/54
--- NOTE | 2017-12-12 00:20 | NUR ---
MS RN NOTES PRBC 329 ML STARTED AT 60ML HR RATE FOR 15 MINUTES,TOLERATED WELL.NO SOB NOTED,THEN INCREASED IT GRADUALLY TO 75ML/HR RATE X 30 MINUTES,STILL TOLERATED,NOW ON 100ML/HR RATE.WILL CONTINUE TO MONITOR FOR FLUID OVERLOAD.
[2017-12-12 00:45] VITALS: BP 121/74
[2017-12-12 04:00] VITALS: BP 115/52
--- NOTE | 2017-12-12 04:00 | NUR ---
MS RN NOTES BLOOD TRANSFUSION COMPLETED.NO SOB,NO FLUID OVERLOAD NOTED.VITAL SIGNS WITH IN NORMAL LIMITS.
[2017-12-12] MEDS: METRONIDAZOLE 500 MG TABLET PO SCH ×3 (05:06→21:13)
--- NOTE | 2017-12-12 05:30 | NUR ---
MS RN NOTES MEG COREA OFFERED MORNING CARE BUT HE REFUSED
--- NOTE | 2017-12-12 06:00 | NUR ---
MS RN NOTES ACCU-CHECK BLOOD SUGAR CHECK 170,REFUSED INSULIN COVERAGE.
--- NOTE | 2017-12-12 06:33 | NUR ---
MS RN NOTES SLEPT WITH INTERVALS.BLOOD TRANSFUSION TOLERATED WELL.NO S/S OF FLUID OVERLOAD NOTED.REFUSED MORNING CARE.PICC LINE REMAINS PATENT,NS AT TKO RATE.BILATERAL FOOT DRESSING INTACT AND DRY.CALL LIGHT IN REACH.IN NO ACUTE DISTRESS.WILL ENDORSE TO DAY NURSE FOR AMINA.
[2017-12-12 07:09] LABS: BASOPHILS % (AUTO) 0.3 % (0.0-2.0); EOSINOPHILS % (AUTO) 1.6 % (0.0-6.0); HEMATOCRIT 23 % (39-51); HEMOGLOBIN 7.5 g/dL (13.5-17.5); LYMPHOCYTES # (AUTO) 1.3 /CMM (0.8-4.8); MEAN CORPUSCULAR HGB CONC 33 g/dl (31.0-36.0); MEAN CORPUSCULAR VOLUME 83 fL (80-96); MONOCYTES # (AUTO) 0.6 /CMM (0.1-1.30); MONOCYTES % (AUTO) 7.7 % (2.0-12.0); NEUTROPHILS # (AUTO) 5.4 /CMM (1.8-8.9); NEUTROPHILS % (AUTO) 73.4 % (43.0-81.0); PLATELET COUNT (AUTO) 276 /CMM (150-450); RDW COEFFICIENT OF VARIATION 16.1 (11.5-15.0); RED BLOOD CELL COUNT(AUTO) 2.75 MIL/uL (4.5-6.0); WHITE BLOOD COUNT (AUTO) 7.4 K/uL (4.3-11.0)
[2017-12-12] MEDS: BLOOD SUGAR DIAGNOSTIC 1 EACH STRIP IN SCH ×4 (07:19→21:17)
[2017-12-12] MEDS: PANTOPRAZOLE 40 MG TABLET.DR PO SCH (07:19)
--- NOTE | 2017-12-12 07:40 | NUR ---
M/S RN - Assessment Patient in bed, awake, A/O x 4, calm and cooperative with care, denies pain, no active bleeding, post blood transfusion 1 unit PRBC, no evidence of resp distress noted. BIBI PICC line is patent, intact, with no complications. Patient has BLE wounds, will do wound treatment as ordered. Patient independent with bed mobility. All needs attended and met. Fall precautions maintained. Will continue with current medical management.
[2017-12-12 07:53] LABS: CALCIUM, SERUM 7.2 mg/dL (8.5-10.1); CREATININE 5.2 mg/dL (0.6-1.3); MAGNESIUM 1.8 mg/dL (1.8-2.4); PHOSPHORUS 5.5 mg/dL (2.5-4.9); POTASSIUM 3.4 mmol/L (3.5-5.1)
[2017-12-12 08:00] VITALS: BP 109/54
[2017-12-12] MEDS: NEPRO VAN 237 ML CAN PO SCH ×2 (08:00→16:39)
[2017-12-12] MEDS: VIT B CMPLX 3/FA/VIT C/BIOTIN 1 TAB TABLET PO SCH (08:19)
[2017-12-12] MEDS: FLUCONAZOLE (100 MG) 100 MG TABLET PO SCH (08:19)
[2017-12-12] MEDS: TERAZOSIN HCL 5 MG CAPSULE PO SCH ×2 (08:19→16:38)
[2017-12-12] MEDS: BUMETANIDE (1 MG) 1 MG TABLET PO SCH ×2 (08:19→16:37)
[2017-12-12] MEDS: FLUDROCORTISONE 0.1 MG TABLET PO SCH ×2 (08:20→16:37)
[2017-12-12] MEDS: DAKINS QUARTER STRENGTH (0.125%) 480 ML BOTTLE TOP SCH ×3 (08:22→16:39)
[2017-12-12] MEDS: METOPROLOL TARTRATE 25 MG TABLET PO SCH ×2 (08:22→21:00)
[2017-12-12] MEDS: LACTOBACILLUS RHAMNOSUS GG 1 EACH CAP.SPRINK PO SCH ×2 (08:23→16:37)
--- NOTE | 2017-12-12 11:30 | NUR ---
M/S RN - Wound debridement/treatment Dr. Betancur at bedside for bilateral heel debridement. Wound treatment done. Patient kept comfortable. All needs attended and met.
[2017-12-12] MEDS: INSULIN REGULAR, HUMAN 100 UNIT/ML 3 ML VIAL SQ PRN ×2 (12:29→21:23)
[2017-12-12 16:05] VITALS: BP 106/62
--- NOTE | 2017-12-12 17:00 | NUR ---
M/S RN - Accu-check Patient refused blood glucose to be checked stated "It doesn't matter anyway, I don't take insulin." Explained the importance but still refused.
--- NOTE | 2017-12-12 18:43 | NUR ---
M/S RN - Notes No new events seen, denies pain, not in any form of distress. Will continue with current medical management.
--- NOTE | 2017-12-12 19:35 | NUR ---
MS RN NOTES RECEIVED ON SITTING POSITION ON BED,A/O X4,S/P WOUND DEBRIDEMENT ON BILATERAL FOOT.DRESSING INTACT AND DRY,WRAPPED WITH BROWN ELASTIC BANDAGE.NS AT TKO RATE IN PROGRESS VIA IV PUMP THRU LEFT UPPER ARM PICC LINE.DENIES DISCOMFORTS AT THE MOMENT.CALL LIGHT IN REACH,NEEDS ANTICIPATED.
[2017-12-12 20:00] VITALS: BP 109/54
[2017-12-12] MEDS: CEFTRIAXONE 2 G in IV D5W 100 ML IV SCH (21:13)
--- NOTE | 2017-12-12 21:30 | NUR ---
MS RN NOTES ACCU-CHECK BLOOD SUGAR CHECK 258,COVERED WITH HUMULIN R 6 UNITS PER SLIDING SCALE.
--- NOTE | 2017-12-12 21:57 | NUR ---
MS RN NOTES PAIN MANAGEMENT C/O PAIN 8/10 ON PAIN SCALE,NORCO 10/325MG,1 TAB PO GIVEN.
[2017-12-13] VITALS (7 sets, daily range): BP systolic 91–120; BP diastolic 52–67
--- NOTE | 2017-12-13 01:29 | NUR ---
MS RN NOTES AWAKE,ASSISTED TO BEDSIDE COMMODE
[2017-12-13] MEDS: METRONIDAZOLE 500 MG TABLET PO SCH ×3 (05:38→21:59)
[2017-12-13 05:57] LABS: BASOPHILS % (AUTO) 0.1 % (0.0-2.0); EOSINOPHILS % (AUTO) 1.6 % (0.0-6.0); HEMATOCRIT 22 % (39-51); HEMOGLOBIN 7.3 g/dL (13.5-17.5); LYMPHOCYTES # (AUTO) 1.2 /CMM (0.8-4.8); LYMPHOCYTES % (AUTO) 15.6 % (20.0-44.0); MEAN CORPUSCULAR HGB CONC 33 g/dl (31.0-36.0); MEAN CORPUSCULAR VOLUME 83 fL (80-96); MONOCYTES # (AUTO) 0.6 /CMM (0.1-1.30); MONOCYTES % (AUTO) 7.8 % (2.0-12.0); NEUTROPHILS # (AUTO) 5.6 /CMM (1.8-8.9); NEUTROPHILS % (AUTO) 74.9 % (43.0-81.0); PLATELET COUNT (AUTO) 288 /CMM (150-450); RDW COEFFICIENT OF VARIATION 16.7 (11.5-15.0); WHITE BLOOD COUNT (AUTO) 7.5 K/uL (4.3-11.0)
[2017-12-13 06:13] LABS: CALCIUM, SERUM 7.6 mg/dL (8.5-10.1); CREATININE 5.8 mg/dL (0.6-1.3); MAGNESIUM 1.9 mg/dL (1.8-2.4); PHOSPHORUS 6.9 mg/dL (2.5-4.9); POTASSIUM 3.3 mmol/L (3.5-5.1)
[2017-12-13] MEDS: BLOOD SUGAR DIAGNOSTIC 1 EACH STRIP IN SCH ×4 (06:28→22:01)
[2017-12-13] MEDS: INSULIN REGULAR, HUMAN 100 UNIT/ML 3 ML VIAL SQ PRN ×3 (06:38→22:23)
--- NOTE | 2017-12-13 07:00 | NUR ---
MS RN NOTES ON BED A/O X4,DENIES PAIN,IV TO TKO IN PROGRESS.FOR HEMODIALYSIS TODAY.CALL LIGHT IN REACH,NEEDS ATTENDED.ENDORSED TO BOLA LOMELI FOR AMINA.
--- NOTE | 2017-12-13 07:15 | NUR ---
RN OPENING NOTES RECEIVED PATIENT IN BED RESTING. NO ACUTE DISTRESS, NO SOB NOTED, DENIED PAIN OR DISCOMFORT AT THE MOMENT. IV SITE INTACT AND PATENT. KEPT PATIENT SAFE AND COMFORTABLE. SCHEDULED FOR HEMODIALYSIS TODAY. BED IN LOW/LOCKED POSITION, SIDERAILS UPX2, CALL LIGHT IN REACH. WILL CONTINUE TO MONITOR ACCORDINGLY.
[2017-12-13] MEDS: TERAZOSIN HCL 5 MG CAPSULE PO SCH ×2 (09:00→16:53)
[2017-12-13] MEDS: BUMETANIDE (1 MG) 1 MG TABLET PO SCH ×2 (09:00→16:49)
[2017-12-13] MEDS: METOPROLOL TARTRATE 25 MG TABLET PO SCH ×2 (09:00→21:00)
[2017-12-13] MEDS: LACTOBACILLUS RHAMNOSUS GG 1 EACH CAP.SPRINK PO SCH ×2 (09:18→16:46)
[2017-12-13] MEDS: VIT B CMPLX 3/FA/VIT C/BIOTIN 1 TAB TABLET PO SCH (09:18)
[2017-12-13] MEDS: FLUDROCORTISONE 0.1 MG TABLET PO SCH ×2 (09:19→16:46)
[2017-12-13] MEDS: FLUCONAZOLE (100 MG) 100 MG TABLET PO SCH (09:19)
[2017-12-13] MEDS: DAKINS QUARTER STRENGTH (0.125%) 480 ML BOTTLE TOP SCH ×3 (09:21→17:44)
[2017-12-13] MEDS: PANTOPRAZOLE 40 MG TABLET.DR PO SCH (09:24)
[2017-12-13] MEDS: NEPRO VAN 237 ML CAN PO SCH ×2 (10:03→17:44)
--- NOTE | 2017-12-13 12:50 | NUR ---
RN NOTES CAMP DISHWASHER ON BEDSIDE, HEMODIALYSIS STARTED.
--- NOTE | 2017-12-13 13:20 | NUR ---
RN NOTES: BLOOD TRANSFUSION STARTED INFUSING FIRST UNIT PRBC WITH HEMODIALYSIS. PATIENT WITH STABLE V/S, DENIES ANY DISCOMFORT. WILL MONIOTR ACCORDINGLY
--- NOTE | 2017-12-13 13:42 | NUR ---
RN NOTES BLOOD TRANSFUSION 1 UNIT PRBC COMPLETED WITH HEMODIALYSIS. NO ADVERSE REACTIONS, NO COMPLICATIONS. PATIENT STABLE VITAL SIGNS, GO=248/62, P=61, R=20, TEMP=98.1
[2017-12-13] MEDS ORDERED: EPOETIN ALFA (10,000 UNIT) 10,000 UNIT/ML VIAL IV ONE (15:00)
--- NOTE | 2017-12-13 15:08 | NUR ---
RN NOTES HEMODIALYSIS COMPLETED WITH 2L OUTPUT. PATIENT IN STABLE CONDITION, ZZ=765/61, P=64, T= 98.0, R=20, SPO2= 96%. WILL CONTINUE TO MONITOR ACCORDINGLY
--- NOTE | 2017-12-13 16:55 | NUR ---
RN NOTES BS 162, REFUSED INSULIN COVERAGE. EXPLAINED, EDUCATED RISKS AND BENEFITS BUT STILL REFUSED. WILL MONIOTR ACCORDINGLY.
--- NOTE | 2017-12-13 19:15 | NUR ---
MS RN NOTES RECEIVED PT RESTING COMFORTABLY IN BED, AROUSES EASILY, A/O X 4. VERBALLY RESPONSIVE. NO DISTRESS, NO SOB NOTED. RESPIRATION IS EVEN AND UNLABORED. ANDRADE PICC LINE, INTACT AND PATENT, NO S/S OF INFECTION NOR INFILTRATION NOTED. NO C/O PAIN OR DISCOMFORT AT THIS TIME. BLE WOUNDS WITH CLEAN AND INTACT DRESSING. NO C/O PAIN OR DISCOMFORT AT THIS TIME. ALL NEEDS ATTENDED AND MET. KEPT COMFORTABLE. CALL LIGHT WITHIN REACH. WILL CONT TO MONITOR.
--- NOTE | 2017-12-13 19:34 | NUR ---
RN CLOSING NOTES PATIENT IN STABLE CONDITION. ALL NEEDS ATTENDED AND PROVIDED. KEPT PATIENT SAFE AND COMFORTABLE. BED IN LOW/LOCKED POSITION, SIDERAILS UP, CALL LIGHT IN REACH. ENDORSED TO NIGHT RN FOR AMINA.
--- NOTE | 2017-12-13 21:20 | NUR ---
M/S RN NOTES Dr. Betancur at bedside for bilateral heel debridement. Wound treatment done. All needs attended and met. Patient kept comfortable.
[2017-12-13] MEDS: CEFTRIAXONE 2 G in IV D5W 100 ML IV SCH (21:37)
[2017-12-14] MEDS: METRONIDAZOLE 500 MG TABLET PO SCH ×3 (05:15→21:26)
[2017-12-14] MEDS: BLOOD SUGAR DIAGNOSTIC 1 EACH STRIP IN SCH ×4 (06:09→21:31)
[2017-12-14] MEDS: INSULIN REGULAR, HUMAN 100 UNIT/ML 3 ML VIAL SQ PRN ×4 (06:16→21:41)
--- NOTE | 2017-12-14 06:42 | NUR ---
MS RN NOTES PT SITTING UP IN BED, A/O X 4. VERBALLY RESPONSIVE. NO DISTRESS, NO SOB NOTED. RESPIRATION IS EVEN AND UNLABORED. ANDRADE PICC LINE, INTACT AND PATENT, NO S/S OF INFECTION NOR INFILTRATION NOTED. NO C/O PAIN OR DISCOMFORT AT THIS TIME. BLE WOUNDS WITH CLEAN AND INTACT DRESSING. NO C/O PAIN OR DISCOMFORT AT THIS TIME. ALL DUE MEDS GIVEN, NO S/S OF HYPO/ HYPERGLYCEMIA NOTED. ALL NEEDS ATTENDED AND MET. KEPT COMFORTABLE. CALL LIGHT WITHIN REACH. WILL ENDORSE TO NEXT SHIFT FOR AMINA.
[2017-12-14 06:50] LABS: BASOPHILS % (AUTO) 0.3 % (0.0-2.0); EOSINOPHILS % (AUTO) 1.2 % (0.0-6.0); HEMATOCRIT 25 % (39-51); HEMOGLOBIN 8.1 g/dL (13.5-17.5); LYMPHOCYTES # (AUTO) 1.3 /CMM (0.8-4.8); LYMPHOCYTES % (AUTO) 17.8 % (20.0-44.0); MEAN CORPUSCULAR HGB CONC 33 g/dl (31.0-36.0); MEAN CORPUSCULAR VOLUME 83 fL (80-96); MONOCYTES # (AUTO) 0.6 /CMM (0.1-1.30); MONOCYTES % (AUTO) 8.8 % (2.0-12.0); NEUTROPHILS # (AUTO) 5.2 /CMM (1.8-8.9); NEUTROPHILS % (AUTO) 71.9 % (43.0-81.0); PLATELET COUNT (AUTO) 295 /CMM (150-450); RED BLOOD CELL COUNT(AUTO) 2.98 MIL/uL (4.5-6.0); WHITE BLOOD COUNT (AUTO) 7.2 K/uL (4.3-11.0)
[2017-12-14 07:13] LABS: CALCIUM, SERUM 7.6 mg/dL (8.5-10.1); CREATININE 4.7 mg/dL (0.6-1.3); MAGNESIUM 1.9 mg/dL (1.8-2.4); PHOSPHORUS 6.4 mg/dL (2.5-4.9)
--- NOTE | 2017-12-14 07:40 | NUR ---
RN NOTES PATIENT A/OX4, SITTING IN HIS WHEELCHAIR, BREATHING EVEN AND UNLABORED, NO DISTRESS NOTED, BLE WOUNDS WITH C/D/I DRESSING, DENIES PAIN OR DISCOMFORT AT THIS TIME, CALL LIGHT WITHIN REACH, WILL CONTINUE TO MONITOR.
[2017-12-14 07:47] LABS: OCCULT BLOOD STOOL NEGATIVE (NEGATIVE)
[2017-12-14 08:22] VITALS: BP 109/65
[2017-12-14] MEDS: FLUCONAZOLE (100 MG) 100 MG TABLET PO SCH (08:46)
[2017-12-14] MEDS: TERAZOSIN HCL 5 MG CAPSULE PO SCH ×2 (08:46→16:26)
[2017-12-14] MEDS: LACTOBACILLUS RHAMNOSUS GG 1 EACH CAP.SPRINK PO SCH ×2 (08:46→16:25)
[2017-12-14] MEDS: NEPRO VAN 237 ML CAN PO SCH ×2 (08:47→16:29)
[2017-12-14] MEDS: METOPROLOL TARTRATE 25 MG TABLET PO SCH ×2 (08:47→21:00)
[2017-12-14] MEDS: BUMETANIDE (1 MG) 1 MG TABLET PO SCH ×2 (08:47→16:25)
[2017-12-14] MEDS: FLUDROCORTISONE 0.1 MG TABLET PO SCH ×2 (08:47→16:25)
[2017-12-14] MEDS: VANCOMYCIN 500 MG in IV D5W 100 ML IV PRN (08:48)
[2017-12-14] MEDS: PANTOPRAZOLE 40 MG TABLET.DR PO SCH (08:55)
[2017-12-14] MEDS: VIT B CMPLX 3/FA/VIT C/BIOTIN 1 TAB TABLET PO SCH (08:58)
[2017-12-14] MEDS: DAKINS QUARTER STRENGTH (0.125%) 480 ML BOTTLE TOP SCH ×3 (09:02→16:29)
--- NOTE | 2017-12-14 10:17 | NUR ---
RN NOTES RELAYED POTASSIUM LEVEL TO KARSTEN LLANES NP AND RECEIVED AN ORDER. ORDER NOTED AND CARRIED OUT.
[2017-12-14] MEDS ORDERED: POTASSIUM CHLORIDE 10 MEQ TABLET.SA PO ONE (10:30)
[2017-12-14 16:00] VITALS: BP 98/57
--- NOTE | 2017-12-14 18:27 | NUR ---
PATIENT A/OX3-4 ABLE TO VERBALIZE NEEDS, BREATHING EVEN AND UNLABORED, NO SOB NOTED, DENIES PAIN AT THIS TIME, DR. ORTEGA CAME AND PROVIDED WOUND TREATMENT, PHOTOS TAKEN AND PLACED IN CHART. BLE DRESSING C/D/I. WOUND SPECIMEN SENT. PATIENT'S ANDRADE PICC LINE PATENT AND FLUSHES WELL, ACCUCHECK DONE, NO S/SX OF HYPO OR HYPERGLYCEMIA NOTED AT THIS TIME. PATIENT ASSISTED TO COMMODE MULTIPLE TIMES. NO DISTRESS NOTED. ALL NEEDS ATTENDED AND MET, CALL LIGHT WITHIN REACH, WILL ENDORSE TO HAND BULLDOZER FOR AMINA.
--- NOTE | 2017-12-14 19:11 | NUR ---
MS RN NOTES RECEIVED PT IN BED, AWAKE, A/O X 4. VERBALLY RESPONSIVE. NO DISTRESS, NO SOB NOTED. RESPIRATION IS EVEN AND UNLABORED. ANDRADE PICC LINE, INTACT AND PATENT, NO S/S OF INFECTION NOR INFILTRATION NOTED. NO C/O PAIN OR DISCOMFORT AT THIS TIME. BLE WOUNDS WITH CLEAN AND INTACT DRESSING. NO C/O PAIN OR DISCOMFORT AT THIS TIME. NO S/S OF HYPO/ HYPERGLYCEMIA NOTED. ALL NEEDS ATTENDED AND MET. KEPT COMFORTABLE. CALL LIGHT WITHIN REACH. WILL CONT TO MONITOR.
[2017-12-14 20:00] VITALS: BP 109/57
[2017-12-14] MEDS: CEFTRIAXONE 2 G in IV D5W 100 ML IV SCH (21:26)
[2017-12-15] MEDS: METRONIDAZOLE 500 MG TABLET PO SCH ×2 (05:22→12:41)
[2017-12-15] MEDS: BLOOD SUGAR DIAGNOSTIC 1 EACH STRIP IN SCH ×2 (06:03→12:03)
[2017-12-15] MEDS: INSULIN REGULAR, HUMAN 100 UNIT/ML 3 ML VIAL SQ PRN ×2 (06:07→12:07)
--- NOTE | 2017-12-15 06:36 | NUR ---
MS RN NOTES PT IN BED, AWAKE, A/O X 4. VERBALLY RESPONSIVE. NO DISTRESS, NO SOB NOTED. RESPIRATION IS EVEN AND UNLABORED. ANDRADE PICC LINE, INTACT AND PATENT, NO S/S OF INFECTION NOR INFILTRATION NOTED. NO C/O PAIN OR DISCOMFORT AT THIS TIME. BLE WOUNDS WITH CLEAN AND INTACT DRESSING. NO C/O PAIN OR DISCOMFORT AT THIS TIME. NO S/S OF HYPO/ HYPERGLYCEMIA NOTED. ALL DUE MEDS GIVEN. ALL NEEDS ATTENDED AND MET. KEPT COMFORTABLE. CALL LIGHT WITHIN REACH. WILL ENDORSE TO NEXT SHIFT FOR AMINA.
[2017-12-15 07:04] LABS: BASOPHILS % (AUTO) 0.2 % (0.0-2.0); EOSINOPHILS % (AUTO) 1.8 % (0.0-6.0); HEMATOCRIT 24 % (39-51); HEMOGLOBIN 7.9 g/dL (13.5-17.5); LYMPHOCYTES # (AUTO) 1.1 /CMM (0.8-4.8); LYMPHOCYTES % (AUTO) 17.6 % (20.0-44.0); MEAN CORPUSCULAR HGB CONC 33 g/dl (31.0-36.0); MEAN CORPUSCULAR VOLUME 83 fL (80-96); MONOCYTES # (AUTO) 0.5 /CMM (0.1-1.30); MONOCYTES % (AUTO) 7.2 % (2.0-12.0); NEUTROPHILS # (AUTO) 4.7 /CMM (1.8-8.9); NEUTROPHILS % (AUTO) 73.2 % (43.0-81.0); PLATELET COUNT (AUTO) 309 /CMM (150-450); RDW COEFFICIENT OF VARIATION 16.7 (11.5-15.0); RED BLOOD CELL COUNT(AUTO) 2.92 MIL/uL (4.5-6.0); WHITE BLOOD COUNT (AUTO) 6.4 K/uL (4.3-11.0)
--- NOTE | 2017-12-15 07:04 | NUR ---
WILDA DIALYSIS NURSE AT BEDSIDE.
[2017-12-15] MEDS: PANTOPRAZOLE 40 MG TABLET.DR PO SCH (07:37)
[2017-12-15 07:39] LABS: CALCIUM, SERUM 7.3 mg/dL (8.5-10.1); CREATININE 5.1 mg/dL (0.6-1.3); MAGNESIUM 1.8 mg/dL (1.8-2.4); PHOSPHORUS 6.9 mg/dL (2.5-4.9); POTASSIUM 3.3 mmol/L (3.5-5.1)
[2017-12-15] MEDS: NEPRO VAN 237 ML CAN PO SCH (07:39)
[2017-12-15 08:00] VITALS: BP 116/59
--- NOTE | 2017-12-15 08:32 | NUR ---
RN OPENING NOTES RECEIVED PT. A&OX4. BREATHING UNLABORED, AND EVENLY ON ROOM AIR. NO S/S OF ACUTE DISTRESS. PT. IS HAVING HEMODIALYSIS AT BEDSIDE. DISCHARGE PLANNING TODAY. BED IS IN LOWEST, AND LOCKED POSITION. 2 SIDE RAILS UP, AND INSTRUCTED PT. TO USE CALL LIGHT FOR ASSISTANCE. ALL NEEDS MET. WILL CONTINUE TO ASSESS AND MONITOR.
[2017-12-15] MEDS: METOPROLOL TARTRATE 25 MG TABLET PO SCH (09:00)
[2017-12-15] MEDS: BUMETANIDE (1 MG) 1 MG TABLET PO SCH (09:00)
[2017-12-15] MEDS: VIT B CMPLX 3/FA/VIT C/BIOTIN 1 TAB TABLET PO SCH (09:36)
[2017-12-15] MEDS: LACTOBACILLUS RHAMNOSUS GG 1 EACH CAP.SPRINK PO SCH (09:36)
[2017-12-15] MEDS: FLUDROCORTISONE 0.1 MG TABLET PO SCH (09:36)
[2017-12-15] MEDS: FLUCONAZOLE (100 MG) 100 MG TABLET PO SCH (09:41)
[2017-12-15] MEDS: DAKINS QUARTER STRENGTH (0.125%) 480 ML BOTTLE TOP SCH ×2 (09:43→12:10)
[2017-12-15] MEDS: TERAZOSIN HCL 5 MG CAPSULE PO SCH (09:46)
[2017-12-15] MEDS: VANCOMYCIN 500 MG in IV D5W 100 ML IV PRN (11:06)
[2017-12-15] MEDS ORDERED: CEFA1PIG IV (11:56)
[2017-12-15] MEDS ORDERED: SODI473S8 TOP (11:56)
[2017-12-15] MEDS ORDERED: METO25TA20 PO (11:56)
[2017-12-15] MEDS ORDERED: LACT1CAP72 PO (11:56)
[2017-12-15] MEDS ORDERED: METR500T PO (11:56)
[2017-12-15 16:00] VITALS: BP 124/76
--- NOTE | 2017-12-15 17:00 | NUR ---
LOAD BLOCKER NOTES PT. WAS DISCHARGED IN MEDICALLY STABLE CONDITION. PT. IS GOING HOME WITH HIS FRIEND BY PRIVATE CAR. DISCHARGE INSTRUCTIONS WERE PROVIDED WITH EDUCATION, PT. VERBALIZED UNDERSTANDING, AND SIGNED DISCHARGE PAPERS. PT. HAS A DOUBLE LUMEN LEFT UPPER ARM CENTRAL LINE THAT IS INTACT AND PATENT. PICC LINE WAS INSERTED ON 12/10/17. ID BAND WAS REMOVED. BELONGINGS LIST WAS CHECKED AND SIGNED. PICTURES OF WOUNDS WERE TAKEN DURING WOUND CARE. PT. REFUSED HAVING PICTURES TAKEN OF HIS BACK, SACRAL/BUTTOCKS, AND PICC LINE. ALL QUESTIONS WERE ANSWERED. PT. WAS AWARE OF RECEIVING HOME HEALTH CARE, AND IV ANTIBIOTICS. PT. WAS GIVEN PRESCRIPTION PAPER, AND DISCHARGE PACKET.
== END 2017-12-15 15:47 | disposition home health service (06) | DRG 981 ==
LOC: WOUND2 11:37
PROVIDERS: ADMIT Podiatrist Foot & Ankle Surgery; ATTEND Nurse Practitioner Acute Care
PROC: 5A1D70Z Performance of Urinary Filtration, Intermittent, Less than 6 Hours Per Day (ICD-10-PCS; 2017-12-05)
PROC: 30233N1 Transfusion of Nonautologous Red Blood Cells into Peripheral Vein, Percutaneous Approach (ICD-10-PCS; 2017-12-06)
PROC: 0QBL0ZZ Excision of Right Tarsal, Open Approach (ICD-10-PCS; principal; 2017-12-07)
PROC: 0KBW0ZZ Excision of Left Foot Muscle, Open Approach (ICD-10-PCS; 2017-12-07)
PROC: 5A1D70Z Performance of Urinary Filtration, Intermittent, Less than 6 Hours Per Day (ICD-10-PCS; 2017-12-07)
PROC: 0KBW0ZZ Excision of Left Foot Muscle, Open Approach (ICD-10-PCS; 2017-12-09)
PROC: 0QBN0ZZ Excision of Right Metatarsal, Open Approach (ICD-10-PCS; 2017-12-09)
PROC: 0QBL0ZZ Excision of Right Tarsal, Open Approach (ICD-10-PCS; 2017-12-09)
PROC: 5A1D70Z Performance of Urinary Filtration, Intermittent, Less than 6 Hours Per Day (ICD-10-PCS; 2017-12-09)
PROC: 0QBN0ZZ Excision of Right Metatarsal, Open Approach (ICD-10-PCS; 2017-12-10)
PROC: 0QBL0ZZ Excision of Right Tarsal, Open Approach (ICD-10-PCS; 2017-12-10)
PROC: 0KBW0ZZ Excision of Left Foot Muscle, Open Approach (ICD-10-PCS; 2017-12-10)
PROC: 02HV33Z Insertion of Infusion Device into Superior Vena Cava, Percutaneous Approach (ICD-10-PCS; 2017-12-10)
PROC: B548ZZA Ultrasonography of Superior Vena Cava, Guidance (ICD-10-PCS; 2017-12-10)
PROC: 0QBN0ZZ Excision of Right Metatarsal, Open Approach (ICD-10-PCS; 2017-12-11)
PROC: 0QBL0ZZ Excision of Right Tarsal, Open Approach (ICD-10-PCS; 2017-12-11)
PROC: 0KBW0ZZ Excision of Left Foot Muscle, Open Approach (ICD-10-PCS; 2017-12-11)
PROC: 5A1D70Z Performance of Urinary Filtration, Intermittent, Less than 6 Hours Per Day (ICD-10-PCS; 2017-12-11)
PROC: 0QBN0ZZ Excision of Right Metatarsal, Open Approach (ICD-10-PCS; 2017-12-12)
PROC: 0QBL0ZZ Excision of Right Tarsal, Open Approach (ICD-10-PCS; 2017-12-12)
PROC: 0KBW0ZZ Excision of Left Foot Muscle, Open Approach (ICD-10-PCS; 2017-12-12)
PROC: 0QBN0ZZ Excision of Right Metatarsal, Open Approach (ICD-10-PCS; 2017-12-13)
PROC: 0QBL0ZZ Excision of Right Tarsal, Open Approach (ICD-10-PCS; 2017-12-13)
PROC: 0KBW0ZZ Excision of Left Foot Muscle, Open Approach (ICD-10-PCS; 2017-12-13)
PROC: 5A1D70Z Performance of Urinary Filtration, Intermittent, Less than 6 Hours Per Day (ICD-10-PCS; 2017-12-13)
PROC: 5A1D70Z Performance of Urinary Filtration, Intermittent, Less than 6 Hours Per Day (ICD-10-PCS; 2017-12-15)
DX: E11.52 Type 2 diabetes mellitus with diabetic peripheral angiopathy with gangrene (principal); E43 Unspecified severe protein-calorie malnutrition; I96 Gangrene, not elsewhere classified; E11.22 Type 2 diabetes mellitus with diabetic chronic kidney disease; D68.59 Other primary thrombophilia; E11.42 Type 2 diabetes mellitus with diabetic polyneuropathy; M60.073 Infective myositis, right foot; I95.9 Hypotension, unspecified; E11.610 Type 2 diabetes mellitus with diabetic neuropathic arthropathy; N18.6 End stage renal disease; M86.9 Osteomyelitis, unspecified; L03.116 Cellulitis of left lower limb; I12.0 Hypertensive chronic kidney disease with stage 5 chronic kidney disease or end stage renal disease; E87.1 Hypo-osmolality and hyponatremia; E27.40 Unspecified adrenocortical insufficiency; E11.69 Type 2 diabetes mellitus with other specified complication; I48.91 Unspecified atrial fibrillation; D63.1 Anemia in chronic kidney disease; E83.42 Hypomagnesemia; E87.6 Hypokalemia; E78.5 Hyperlipidemia, unspecified; N40.0 Benign prostatic hyperplasia without lower urinary tract symptoms; E66.9 Obesity, unspecified; Z68.31 Body mass index [BMI] 31.0-31.9, adult; Z99.2 Dependence on renal dialysis; I89.0 Lymphedema, not elsewhere classified; D72.829 Elevated white blood cell count, unspecified; E11.621 Type 2 diabetes mellitus with foot ulcer; L97.529 Non-pressure chronic ulcer of other part of left foot with unspecified severity; L97.519 Non-pressure chronic ulcer of other part of right foot with unspecified severity; E11.65 Type 2 diabetes mellitus with hyperglycemia; E83.51 Hypocalcemia
CPT/HCPCS: 36415; 36569; 71045-TC; 73630-TC; 80048-TC; 80053-TC; 80061-TC; 80202-TC; 82272-TC; 82728-TC; 82962-TC; 83540-TC; 83735-TC; 84100-TC; 84443-TC; 85025-TC; 85610-TC; 85652-TC; 85730-TC; 86140-TC; 86850-TC; 86921-TC; 87070-TC; 87075-TC; 87081-TC; 87186-TC; 90935-TC; 93307-TC; A4216; A6402; A6403; C1751; J0696; J0885; J1815; J2543; J3370; J3475; J3490; J7030; J7050; J7060; P9016-BL; Z7610

== ENCOUNTER 2017-12-18 12:05 | Outpatient (CLI) | payer MEDICARE ==
[~2017-12-18 12:05] MED LIST changes: +AMLO5TAB7 PO; +BUME1TAB4 PO; +CARI350T27 PO; +CEFA1PIG IV; +FLUD0.1T PO; -FURO-145 PO; +LACT1CAP72 PO; -LEVO500T90 PO; +METO25TA20 PO; +METR500T PO; +SODI473S8 TOP; +TERA5CAP4 PO
== END 2017-12-18 23:59 | disposition home health service (06) ==
LOC: WOU 12:05
PROVIDERS: ATTEND Podiatrist Foot & Ankle Surgery
DX: E11.621 Type 2 diabetes mellitus with foot ulcer (principal); E11.622 Type 2 diabetes mellitus with other skin ulcer; L97.423 Non-pressure chronic ulcer of left heel and midfoot with necrosis of muscle; L97.414 Non-pressure chronic ulcer of right heel and midfoot with necrosis of bone; L97.514 Non-pressure chronic ulcer of other part of right foot with necrosis of bone; L97.829 Non-pressure chronic ulcer of other part of left lower leg with unspecified severity; E11.22 Type 2 diabetes mellitus with diabetic chronic kidney disease; N18.6 End stage renal disease; Z99.2 Dependence on renal dialysis; E66.9 Obesity, unspecified; Z68.33 Body mass index [BMI] 33.0-33.9, adult; E11.69 Type 2 diabetes mellitus with other specified complication; M86.8X7 Other osteomyelitis, ankle and foot; Z79.899 Other long term (current) drug therapy; E11.40 Type 2 diabetes mellitus with diabetic neuropathy, unspecified; Z79.2 Long term (current) use of antibiotics
CPT/HCPCS: 11043; 11044; 11046; 11047; A6209; A6253; A6402 ×2

== ENCOUNTER 2017-12-21 10:41 | Outpatient (CLI) | payer MEDICARE | END 2017-12-21 23:59 | disposition home health service (06) | LOC: WOU 10:41 | PROVIDERS: ATTEND Podiatrist Foot & Ankle Surgery | DX: E11.621 Type 2 diabetes mellitus with foot ulcer (principal); E11.622 Type 2 diabetes mellitus with other skin ulcer; L97.416 Non-pressure chronic ulcer of right heel and midfoot with bone involvement without evidence of necrosis; L97.516 Non-pressure chronic ulcer of other part of right foot with bone involvement without evidence of necrosis; L97.423 Non-pressure chronic ulcer of left heel and midfoot with necrosis of muscle; L97.829 Non-pressure chronic ulcer of other part of left lower leg with unspecified severity; S81.812A Laceration without foreign body, left lower leg, initial encounter; X58.XXXA Exposure to other specified factors, initial encounter; Y92.89 Other specified places as the place of occurrence of the external cause; E11.22 Type 2 diabetes mellitus with diabetic chronic kidney disease; E11.69 Type 2 diabetes mellitus with other specified complication; E11.610 Type 2 diabetes mellitus with diabetic neuropathic arthropathy; N18.6 End stage renal disease; M86.671 Other chronic osteomyelitis, right ankle and foot; B95.2 Enterococcus as the cause of diseases classified elsewhere; B96.4 Proteus (mirabilis) (morganii) as the cause of diseases classified elsewhere; Z99.2 Dependence on renal dialysis | CPT/HCPCS: 11043; 11044; 11047; 97606-TC; A6402 ==

== ENCOUNTER 2017-12-25 10:46 | Outpatient (CLI) | payer MEDICARE | END 2017-12-25 23:59 | disposition home health service (06) | LOC: WOU 10:46 | PROVIDERS: ATTEND Podiatrist Foot & Ankle Surgery | DX: E11.621 Type 2 diabetes mellitus with foot ulcer (principal); E11.622 Type 2 diabetes mellitus with other skin ulcer; L97.416 Non-pressure chronic ulcer of right heel and midfoot with bone involvement without evidence of necrosis; L97.516 Non-pressure chronic ulcer of other part of right foot with bone involvement without evidence of necrosis; L97.423 Non-pressure chronic ulcer of left heel and midfoot with necrosis of muscle; L97.828 Non-pressure chronic ulcer of other part of left lower leg with other specified severity; T14.90XD Injury, unspecified, subsequent encounter; X58.XXXD Exposure to other specified factors, subsequent encounter; R60.9 Edema, unspecified; E11.69 Type 2 diabetes mellitus with other specified complication; M86.8X7 Other osteomyelitis, ankle and foot; E11.22 Type 2 diabetes mellitus with diabetic chronic kidney disease; N18.6 End stage renal disease; Z99.2 Dependence on renal dialysis | CPT/HCPCS: 11043; 11044; 11047; 87070; 87075; 87077; 97606; A6402 ==

== ENCOUNTER 2018-01-01 10:48 | Outpatient (CLI) | payer MEDICARE | END 2018-01-01 23:59 | disposition home health service (06) | LOC: WOU 10:48 | PROVIDERS: ATTEND Podiatrist Foot & Ankle Surgery | DX: E11.621 Type 2 diabetes mellitus with foot ulcer (principal); L97.416 Non-pressure chronic ulcer of right heel and midfoot with bone involvement without evidence of necrosis; L97.523 Non-pressure chronic ulcer of other part of left foot with necrosis of muscle; L97.516 Non-pressure chronic ulcer of other part of right foot with bone involvement without evidence of necrosis; E11.69 Type 2 diabetes mellitus with other specified complication; M86.8X7 Other osteomyelitis, ankle and foot; R60.0 Localized edema; E11.40 Type 2 diabetes mellitus with diabetic neuropathy, unspecified; Z99.2 Dependence on renal dialysis | CPT/HCPCS: 11043; 11044; 11046; 11047; 97605; A6402 ×2; J3490 ==

== ENCOUNTER 2018-01-04 08:58 | Outpatient (CLI) | payer MEDICARE | END 2018-01-04 23:59 | disposition home health service (06) | LOC: WOU 08:58 | PROVIDERS: ATTEND Podiatrist Foot & Ankle Surgery | DX: E11.621 Type 2 diabetes mellitus with foot ulcer (principal); L97.416 Non-pressure chronic ulcer of right heel and midfoot with bone involvement without evidence of necrosis; L97.523 Non-pressure chronic ulcer of other part of left foot with necrosis of muscle; L97.516 Non-pressure chronic ulcer of other part of right foot with bone involvement without evidence of necrosis; E11.65 Type 2 diabetes mellitus with hyperglycemia; E11.69 Type 2 diabetes mellitus with other specified complication; M86.8X7 Other osteomyelitis, ankle and foot; R60.0 Localized edema | CPT/HCPCS: 11043; 11044; 11047; 97605-TC; A6253; A6402; A6452 ==

== ENCOUNTER 2018-01-08 12:50 | Outpatient (CLI) | payer MEDICARE | END 2018-01-08 23:59 | disposition home health service (06) | LOC: WOU 12:50 | PROVIDERS: ATTEND Podiatrist Foot & Ankle Surgery | DX: E11.621 Type 2 diabetes mellitus with foot ulcer (principal); L97.416 Non-pressure chronic ulcer of right heel and midfoot with bone involvement without evidence of necrosis; L97.523 Non-pressure chronic ulcer of other part of left foot with necrosis of muscle; L97.516 Non-pressure chronic ulcer of other part of right foot with bone involvement without evidence of necrosis; E11.40 Type 2 diabetes mellitus with diabetic neuropathy, unspecified; E11.610 Type 2 diabetes mellitus with diabetic neuropathic arthropathy; E11.69 Type 2 diabetes mellitus with other specified complication; M86.8X7 Other osteomyelitis, ankle and foot; Z79.899 Other long term (current) drug therapy | CPT/HCPCS: 11043; 11044; 11047; 97605-TC; A6253; A6402 ==

== ENCOUNTER 2018-01-11 08:37 | Outpatient (CLI) | payer MEDICARE | END 2018-01-11 23:59 | disposition home health service (06) | LOC: WOU 08:37 | PROVIDERS: ATTEND Podiatrist Foot & Ankle Surgery | DX: E11.621 Type 2 diabetes mellitus with foot ulcer (principal); L97.523 Non-pressure chronic ulcer of other part of left foot with necrosis of muscle; L97.416 Non-pressure chronic ulcer of right heel and midfoot with bone involvement without evidence of necrosis; L97.516 Non-pressure chronic ulcer of other part of right foot with bone involvement without evidence of necrosis; E11.22 Type 2 diabetes mellitus with diabetic chronic kidney disease; N18.6 End stage renal disease; Z99.2 Dependence on renal dialysis; E11.40 Type 2 diabetes mellitus with diabetic neuropathy, unspecified; E11.69 Type 2 diabetes mellitus with other specified complication; M86.8X7 Other osteomyelitis, ankle and foot | CPT/HCPCS: 11043; 11044; 11047; 97605-TC; A6253; A6402 ==

== ENCOUNTER 2018-01-15 13:03 | Outpatient (CLI) | payer MEDICARE | END 2018-01-15 23:59 | disposition home health service (06) | LOC: WOU 13:03 | PROVIDERS: ATTEND Podiatrist Foot & Ankle Surgery | DX: E11.621 Type 2 diabetes mellitus with foot ulcer (principal); L97.414 Non-pressure chronic ulcer of right heel and midfoot with necrosis of bone; L97.523 Non-pressure chronic ulcer of other part of left foot with necrosis of muscle; L97.513 Non-pressure chronic ulcer of other part of right foot with necrosis of muscle; E11.69 Type 2 diabetes mellitus with other specified complication; M86.8X7 Other osteomyelitis, ankle and foot | CPT/HCPCS: 11043; 11044; 11047; 97605-TC; A6402 ==

== ENCOUNTER 2018-01-18 09:22 | Outpatient (CLI) | payer MEDICARE | END 2018-01-18 23:59 | disposition home health service (06) | LOC: WOU 09:22 | PROVIDERS: ATTEND Podiatrist Foot & Ankle Surgery | DX: E11.621 Type 2 diabetes mellitus with foot ulcer (principal); L97.414 Non-pressure chronic ulcer of right heel and midfoot with necrosis of bone; L97.523 Non-pressure chronic ulcer of other part of left foot with necrosis of muscle; L97.514 Non-pressure chronic ulcer of other part of right foot with necrosis of bone; L97.829 Non-pressure chronic ulcer of other part of left lower leg with unspecified severity; E11.69 Type 2 diabetes mellitus with other specified complication; M86.171 Other acute osteomyelitis, right ankle and foot; E11.22 Type 2 diabetes mellitus with diabetic chronic kidney disease; N18.6 End stage renal disease; Z99.2 Dependence on renal dialysis; Z79.899 Other long term (current) drug therapy; E11.40 Type 2 diabetes mellitus with diabetic neuropathy, unspecified | CPT/HCPCS: 11043; 11044; 11047; 82962-TC; 97605-TC; A6253; A6402; A6452 ==

== ENCOUNTER 2018-01-22 10:15 | Outpatient (CLI) | payer MEDICARE ==
[2018-01-22 11:35] LABS: CALCIUM, SERUM 8.2 mg/dL (8.5-10.1); CREATININE 6.4 mg/dL (0.6-1.3); POTASSIUM 5.4 mmol/L (3.5-5.1)
== END 2018-01-22 23:59 | disposition home or self-care (01) ==
LOC: WOU 10:15
PROVIDERS: ATTEND Podiatrist Foot & Ankle Surgery
DX: E11.621 Type 2 diabetes mellitus with foot ulcer (principal); L97.414 Non-pressure chronic ulcer of right heel and midfoot with necrosis of bone; L97.523 Non-pressure chronic ulcer of other part of left foot with necrosis of muscle; L97.514 Non-pressure chronic ulcer of other part of right foot with necrosis of bone; E11.622 Type 2 diabetes mellitus with other skin ulcer; L97.821 Non-pressure chronic ulcer of other part of left lower leg limited to breakdown of skin; E11.610 Type 2 diabetes mellitus with diabetic neuropathic arthropathy; E11.69 Type 2 diabetes mellitus with other specified complication; M86.8X7 Other osteomyelitis, ankle and foot; E11.42 Type 2 diabetes mellitus with diabetic polyneuropathy; R60.0 Localized edema; Z79.899 Other long term (current) drug therapy
CPT/HCPCS: 11043; 11044; 11047; 36415; 80048-TC; 97605-TC; A6402; A6452

== ENCOUNTER 2018-01-25 09:06 | Outpatient (CLI) | payer MEDICARE | END 2018-01-25 23:59 | disposition home health service (06) | LOC: WOU 09:06 | PROVIDERS: ATTEND Podiatrist Foot & Ankle Surgery | DX: E11.621 Type 2 diabetes mellitus with foot ulcer (principal); L97.414 Non-pressure chronic ulcer of right heel and midfoot with necrosis of bone; L97.523 Non-pressure chronic ulcer of other part of left foot with necrosis of muscle; L97.514 Non-pressure chronic ulcer of other part of right foot with necrosis of bone; L97.829 Non-pressure chronic ulcer of other part of left lower leg with unspecified severity; E11.622 Type 2 diabetes mellitus with other skin ulcer; E11.69 Type 2 diabetes mellitus with other specified complication; M86.171 Other acute osteomyelitis, right ankle and foot; E11.22 Type 2 diabetes mellitus with diabetic chronic kidney disease; Z99.2 Dependence on renal dialysis; Z79.899 Other long term (current) drug therapy | CPT/HCPCS: 11043; 11044; 11047; 97605-TC; A6402; A6452 ==

== ENCOUNTER 2018-01-29 13:26 | Outpatient (CLI) | payer MEDICARE | END 2018-01-29 23:59 | disposition home health service (06) | LOC: WOU 13:26 | PROVIDERS: ATTEND Podiatrist Foot & Ankle Surgery | DX: E11.621 Type 2 diabetes mellitus with foot ulcer (principal); L97.416 Non-pressure chronic ulcer of right heel and midfoot with bone involvement without evidence of necrosis; L97.523 Non-pressure chronic ulcer of other part of left foot with necrosis of muscle; L97.516 Non-pressure chronic ulcer of other part of right foot with bone involvement without evidence of necrosis; E11.622 Type 2 diabetes mellitus with other skin ulcer; L97.822 Non-pressure chronic ulcer of other part of left lower leg with fat layer exposed; S90.111D Contusion of right great toe without damage to nail, subsequent encounter; X58.XXXD Exposure to other specified factors, subsequent encounter; E11.22 Type 2 diabetes mellitus with diabetic chronic kidney disease; N18.6 End stage renal disease; Z99.2 Dependence on renal dialysis; E11.42 Type 2 diabetes mellitus with diabetic polyneuropathy; E11.69 Type 2 diabetes mellitus with other specified complication; M86.8X7 Other osteomyelitis, ankle and foot; E11.610 Type 2 diabetes mellitus with diabetic neuropathic arthropathy; I87.8 Other specified disorders of veins | CPT/HCPCS: 11043; 11044; 97605-TC; A6402; A6452; G0463; Z7610 ==

== ENCOUNTER 2018-01-29 13:33 | Outpatient (CLI) | payer MEDICARE ==
[~2018-01-29 13:33] MED LIST changes: +AMLO5TAB2 PO; -AMLO5TAB7 PO
== END 2018-01-29 23:59 | disposition home or self-care (01) ==
LOC: VASLAB 13:33
PROVIDERS: ATTEND Surgery Vascular Surgery
DX: Z75.3 Unavailability and inaccessibility of health-care facilities (principal)
CPT/HCPCS: Z7610

== ENCOUNTER 2018-02-05 11:44 | Outpatient (CLI) | payer MEDICARE ==
[~2018-02-05 11:44] MED LIST changes: -AMLO5TAB2 PO; +AMLO5TAB7 PO
== END 2018-02-05 23:59 | disposition home health service (06) ==
LOC: WOU 11:44
PROVIDERS: ATTEND Podiatrist Foot & Ankle Surgery
DX: E11.621 Type 2 diabetes mellitus with foot ulcer (principal); L97.414 Non-pressure chronic ulcer of right heel and midfoot with necrosis of bone; L97.523 Non-pressure chronic ulcer of other part of left foot with necrosis of muscle; L97.516 Non-pressure chronic ulcer of other part of right foot with bone involvement without evidence of necrosis; S90.111D Contusion of right great toe without damage to nail, subsequent encounter; X58.XXXD Exposure to other specified factors, subsequent encounter; E11.69 Type 2 diabetes mellitus with other specified complication; M86.8X7 Other osteomyelitis, ankle and foot; E11.42 Type 2 diabetes mellitus with diabetic polyneuropathy; E11.22 Type 2 diabetes mellitus with diabetic chronic kidney disease; N18.6 End stage renal disease; Z99.2 Dependence on renal dialysis
CPT/HCPCS: 11044; 11042; 11043; 11047; 97605; A6402; A6452

== ENCOUNTER 2018-02-06 08:58 | Outpatient (CLI) | payer MEDICARE ==
[~2018-02-06 08:58] MED LIST changes: +AMLO5TAB2 PO; -AMLO5TAB7 PO
== END 2018-02-06 23:59 | disposition home or self-care (01) ==
LOC: WOU 08:58
PROVIDERS: ATTEND Podiatrist Foot & Ankle Surgery
DX: Z01.818 Encounter for other preprocedural examination (principal); N18.6 End stage renal disease; I73.9 Peripheral vascular disease, unspecified
CPT/HCPCS: 93925; 93930; 93970; 93971; A6452; Z7610

== ENCOUNTER 2018-02-08 10:20 | Outpatient (CLI) | payer MEDICARE | END 2018-02-08 23:59 | disposition home health service (06) | LOC: WOU 10:20 | PROVIDERS: ATTEND Podiatrist Foot & Ankle Surgery | DX: E11.621 Type 2 diabetes mellitus with foot ulcer (principal); L97.414 Non-pressure chronic ulcer of right heel and midfoot with necrosis of bone; L97.523 Non-pressure chronic ulcer of other part of left foot with necrosis of muscle; L97.514 Non-pressure chronic ulcer of other part of right foot with necrosis of bone; E11.42 Type 2 diabetes mellitus with diabetic polyneuropathy; E11.22 Type 2 diabetes mellitus with diabetic chronic kidney disease; N18.6 End stage renal disease; Z99.2 Dependence on renal dialysis | CPT/HCPCS: 11043; 11044; 11047; 97605-TC; A6402; A6452; Z7610 ==

== ENCOUNTER 2018-02-19 09:23 | Outpatient (CLI) | payer MEDICARE ==
[2018-02-19 11:07] LABS: BASOPHILS % (AUTO) 0.2 % (0.0-2.0); EOSINOPHILS % (AUTO) 3.5 % (0.0-6.0); HEMATOCRIT 38 % (39-51); HEMOGLOBIN 12.2 g/dL (13.5-17.5); LYMPHOCYTES # (AUTO) 1.3 /CMM (0.8-4.8); LYMPHOCYTES % (AUTO) 20.4 % (20.0-44.0); MEAN CORPUSCULAR HEMOGLOBIN 30 PG (26.0-33.0); MEAN CORPUSCULAR HGB CONC 32 g/dl (31.0-36.0); MEAN CORPUSCULAR VOLUME 93 fL (80-96); MONOCYTES # (AUTO) 0.7 /CMM (0.1-1.30); MONOCYTES % (AUTO) 10.6 % (2.0-12.0); NEUTROPHILS # (AUTO) 4.2 /CMM (1.8-8.9); NEUTROPHILS % (AUTO) 65.3 % (43.0-81.0); PLATELET COUNT (AUTO) 315 /CMM (150-450); RDW COEFFICIENT OF VARIATION 17.2 (11.5-15.0); WHITE BLOOD COUNT (AUTO) 6.4 K/uL (4.3-11.0)
[2018-02-19 11:45] LABS: ALBUMIN 2.8 g/dL (3.4-5.0); CALCIUM, SERUM 8.1 mg/dL (8.5-10.1); MAGNESIUM 2.6 mg/dL (1.8-2.4)
[2018-02-19 12:00] LABS: POTASSIUM 6.2 mmol/L (3.5-5.1)
== END 2018-02-19 23:59 | disposition home health service (06) ==
LOC: WOU 09:23
PROVIDERS: ATTEND Podiatrist Foot & Ankle Surgery
DX: E11.621 Type 2 diabetes mellitus with foot ulcer (principal); L97.414 Non-pressure chronic ulcer of right heel and midfoot with necrosis of bone; L97.512 Non-pressure chronic ulcer of other part of right foot with fat layer exposed; L97.514 Non-pressure chronic ulcer of other part of right foot with necrosis of bone; L97.423 Non-pressure chronic ulcer of left heel and midfoot with necrosis of muscle; M86.9 Osteomyelitis, unspecified; E11.42 Type 2 diabetes mellitus with diabetic polyneuropathy; E11.610 Type 2 diabetes mellitus with diabetic neuropathic arthropathy; R60.9 Edema, unspecified
CPT/HCPCS: 11042; 11044; 36415; 80048-TC; 82040-TC; 83735-TC; 84100-TC; 84134-TC; 85025-TC; A6402; A6452; Z7610

== ENCOUNTER 2018-03-05 10:15 | Outpatient (CLI) | payer MEDICARE | END 2018-03-05 23:59 | disposition home or self-care (01) | LOC: WOU 10:15 | PROVIDERS: ATTEND Podiatrist Foot & Ankle Surgery | DX: E11.621 Type 2 diabetes mellitus with foot ulcer (principal); L97.414 Non-pressure chronic ulcer of right heel and midfoot with necrosis of bone; L97.512 Non-pressure chronic ulcer of other part of right foot with fat layer exposed; L97.423 Non-pressure chronic ulcer of left heel and midfoot with necrosis of muscle; E11.622 Type 2 diabetes mellitus with other skin ulcer; L97.812 Non-pressure chronic ulcer of other part of right lower leg with fat layer exposed; E11.42 Type 2 diabetes mellitus with diabetic polyneuropathy; S90.111A Contusion of right great toe without damage to nail, initial encounter; X58.XXXA Exposure to other specified factors, initial encounter; Y93.9 Activity, unspecified; Y92.89 Other specified places as the place of occurrence of the external cause; Y99.9 Unspecified external cause status | CPT/HCPCS: 11042; 11043; 11044; 11047; A6402; A6452; Z7610 ==

== ENCOUNTER 2018-03-10 11:43 | Inpatient (IN) | payer MEDICARE ==
[~2018-03-10] VITALS: Ht 160 cm; Wt 98.0 kg
--- NOTE | 2018-03-10 12:00 | NUR ---
AAOX3, SENT BY DR REINA FOR SKIN GRAFT SURGERY TO R FOOT SCHEDULED TOMORROW. RR IS EVEN AND UNLABORED WITH NAD NOTED. SKIN IS WARM AND DRY. AWAITING MD FOR EVAL.
[2018-03-10] MEDS ORDERED: IV NS 0.9% 500 ML BAG IV ONE (12:30)
[2018-03-10] MEDS ORDERED: BENZOIN COMPOUND TINCT 60 ML BOTTLE ONE (12:31)
--- NOTE | 2018-03-10 12:33 | NUR ---
CALLED [facility] FOR PANEL CALL AND DR RIVAS WAS PAGED.
--- NOTE | 2018-03-10 12:39 | NUR ---
CALLED NURSING TYPE INSPECTOR AND REQUESTED A MED SURG BED FOR THIS PT.
[2018-03-10 12:42] LABS: BASOPHILS # (AUTO) 0.1 /CMM (0.0-0.2); BASOPHILS % (AUTO) 1.5 % (0.0-2.0); EOSINOPHILS % (AUTO) 1.9 % (0.0-6.0); HEMATOCRIT 39 % (39-51); HEMOGLOBIN 12.3 g/dL (13.5-17.5); LYMPHOCYTES # (AUTO) 1.1 /CMM (0.8-4.8); LYMPHOCYTES % (AUTO) 12.5 % (20.0-44.0); MEAN CORPUSCULAR HEMOGLOBIN 29 PG (26.0-33.0); MEAN CORPUSCULAR HGB CONC 32 g/dl (31.0-36.0); MEAN CORPUSCULAR VOLUME 91 fL (80-96); MONOCYTES # (AUTO) 0.6 /CMM (0.1-1.30); NEUTROPHILS # (AUTO) 6.6 /CMM (1.8-8.9); NEUTROPHILS % (AUTO) 77.1 % (43.0-81.0); PLATELET COUNT (AUTO) 311 /CMM (150-450); RDW COEFFICIENT OF VARIATION 15.2 (11.5-15.0); RED BLOOD CELL COUNT(AUTO) 4.24 MIL/uL (4.5-6.0); WHITE BLOOD COUNT (AUTO) 8.6 K/uL (4.3-11.0)
--- NOTE | 2018-03-10 12:51 | NUR ---
PT IS ASSIGNED TO MED SURG RM#: [id number], DX: RIGHT FOOT ULCER, ACCEPTING MD: DR. RIVAS.
[2018-03-10 12:56] LABS: INR 0.99 (0.85-1.15)
[2018-03-10 12:59] LABS: ALANINE AMINOTRANSFERASE 12 U/L (12-78); ALBUMIN 2.7 g/dL (3.4-5.0); ALKALINE PHOSPHATASE 83 U/L (46-116); ASPARTATE AMINOTRANSFERASE 22 U/L (15-37); BILIRUBIN,DIRECT 0.1 mg/dL (0.0-0.2); BILIRUBIN,TOTAL 0.5 mg/dL (0.2-1.0); CALCIUM, SERUM 7.8 mg/dL (8.5-10.1); CARBON DIOXIDE 24 mmol/L (21-32); CHLORIDE 99 mmol/L (98-107); CREATININE 6.3 mg/dL (0.6-1.3); GLUCOSE 238 mg/dL (74-106); SODIUM SERUM 132 mmol/L (136-145); UREA NITROGEN, BLOOD 75 mg/dL (7-18)
[2018-03-10] MEDS ORDERED: CARISOPRODOL 350 MG TABLET PO PRN (13:00)
[2018-03-10 13:01] LABS: TROPONIN I < 0.017 ng/mL (0.00-0.056)
[2018-03-10 13:02] LABS: POTASSIUM 7.3 mmol/L (3.5-5.1)
[2018-03-10] MEDS ORDERED: SODIUM POLYSTYRENE SULFONATE 15 G/60 ML BOTTLE ONE (13:12)
[2018-03-10] MEDS ORDERED: Calcium Gluconate 0.465 MEQ/ML VIAL IV ONE (13:12)
[2018-03-10] MEDS ORDERED: SODIUM BICARBONATE SYR 50 MEQ/50 ML DISP.SYRIN ONE (13:13)
[2018-03-10] MEDS ORDERED: INSULIN REGULAR, HUMAN 100 UNIT/ML 10 ML VIAL ONE (13:13)
[2018-03-10] MEDS ORDERED: DEXTROSE 50%-WATER 50 ML DISP.SYRIN ONE (13:13)
[2018-03-10] MEDS ORDERED: SODIUM POLYSTYRENE SULFONATE 15 G/60 ML BOTTLE PO ONE (13:30)
[2018-03-10] MEDS ORDERED: Calcium Gluconate 1GM/10ML 4.65 MEQ in IV NS 0.9% 50 ML IV ONE (13:30)
[2018-03-10] MEDS ORDERED: MAG HYDROX/AL HYDROX/SIMETH 30 ML UDC PO PRN (13:30)
[2018-03-10] MEDS ORDERED: DEXTROSE 50%-WATER 50 ML DISP.SYRIN IV PRN (13:30)
[2018-03-10] MEDS ORDERED: Z GUARD REMEDY 2 OZ OINT TP PRN (13:30)
[2018-03-10] MEDS ORDERED: *INSULIN REGULAR(HUMULIN R)HUM 100 UNIT/ML VIAL SQ PRN (13:30)
[2018-03-10] MEDS ORDERED: INSULIN REGULAR, HUMAN 100 UNIT/ML 10 ML VIAL IV ONE (13:30)
[2018-03-10] MEDS ORDERED: HYDROCODONE/APAP 5/325MG 1 EACH TABLET PO PRN (13:30)
[2018-03-10] MEDS ORDERED: INSULIN REGULAR, HUMAN 100 UNIT/ML 3 ML VIAL SQ PRN (13:30)
[2018-03-10] MEDS ORDERED: SODIUM BICARBONATE SYR 50 MEQ/50 ML DISP.SYRIN IV ONE (13:30)
[2018-03-10] MEDS ORDERED: ONDANSETRON HCL/PF 4 MG/2 ML VIAL IVP PRN (13:30)
[2018-03-10] MEDS ORDERED: MAGNESIUM HYDROXIDE 30 ML UDC PO PRN (13:30)
[2018-03-10] MEDS ORDERED: ACETAMINOPHEN 325 MG TABLET PO PRN (13:30)
[2018-03-10] MEDS ORDERED: DEXTROSE 50%-WATER 50 ML DISP.SYRIN IV ONE (13:30)
[2018-03-10] MEDS ORDERED: ALBUTEROL FS 2.5 MG/3 ML VIAL.NEB NEB ONE (13:30)
[2018-03-10 13:39] LABS: MAGNESIUM 2.6 mg/dL (1.8-2.4)
[2018-03-10 13:49] LABS: PHOSPHORUS 8.9 mg/dL (2.5-4.9)
--- NOTE | 2018-03-10 13:50 | NUR ---
REPORT GIVEN TO YANI EUCEDA FOR AMINA TELE [id number]
[2018-03-10] MEDS ORDERED: ALBUTEROL FS 2.5 MG/3 ML VIAL.NEB ONE (13:58)
[2018-03-10 14:00] VITALS: BP 132/71
--- NOTE | 2018-03-10 14:15 | NUR ---
RN OPENING ADMISSION NOTES PT RESTING IN BED, RECEIVED VIA WC.AWAKE ALERT AND VERBALLY RESPONSIVE ABLE TO MAKE NEEDS KNOWN. NO COMPLAINTS OF SOB, DISTRESS OR PAIN AT THIS TIME. PT HAS A LEFT AC #18 IV INTACT AND PATENT NO REDNESS OR INFILTRATION NOTED. PT ON TELE MONITOR AT NORMAL SINUS RHYTHM WITH PVC AND OCCASIONAL PAC MD AWARE, PT WITH POTASSIUM LEVEL 7.3 MD AWARE. SAFETY PRECAUTIONS IN PLACE BED IN LOWEST LOCKED POSITION, X2 SIDE RAILS UP AND CALL LIGHT WITHIN REACH. PT ORIENTED TO ROOM AND UNIT, DR. RIVAS AWARE OF PT'S ARRIVAL, PICTURES OF SKIN TAKEN, WILL CONTINUE TO MONITOR
[2018-03-10 14:25] VITALS: BP 132/71
[2018-03-10] MEDS: METRONIDAZOLE 500 MG TABLET PO SCH ×2 (15:11→21:43)
[2018-03-10] MEDS ORDERED: SILVER SULFADIAZINE CREAM 400 GM JAR TP SCH (15:30)
[2018-03-10] MEDS: DAKINS QUARTER STRENGTH (0.125%) 480 ML BOTTLE TOP SCH (15:55)
[2018-03-10 16:00] VITALS: BP 109/59
[2018-03-10] MEDS: BUMETANIDE (1 MG) 1 MG TABLET PO SCH (17:00)
[2018-03-10] MEDS: TERAZOSIN HCL 5 MG CAPSULE PO SCH (17:00)
[2018-03-10] MEDS: BLOOD SUGAR DIAGNOSTIC 1 EACH STRIP VI SCH ×3 (17:13→21:47)
[2018-03-10] MEDS: LACTOBACILLUS RHAMNOSUS GG 1 EACH CAP.SPRINK PO SCH (18:24)
[2018-03-10] MEDS: FLUDROCORTISONE 0.1 MG TABLET PO SCH (18:24)
[2018-03-10] MEDS: ANCEF 1 GM/50 ML D5W IV SCH ×2 (18:30)
[2018-03-10] MEDS ORDERED: FEE PK DOSING 1 MIN EA MC ONE (18:53)
[2018-03-10] MEDS ORDERED: VANCOMYCIN 1.5 GM in IV D5W 500 ML IV ONE (19:00)
--- NOTE | 2018-03-10 19:29 | NUR ---
RN CLOSING NOTES PT RESTING IN BED,AWAKE ALERT AND VERBALLY RESPONSIVE ABLE TO MAKE NEEDS KNOWN. NO COMPLAINTS OF SOB, DISTRESS OR PAIN AT THIS TIME. PT HAS A LEFT AC #18G IV INTACT AND PATENT NO REDNESS OR INFILTRATION NOTED. PT ON TELE MONITOR AT NORMAL SINUS RHYTHM WITH PVC AND OCCASIONAL PAC MD AWARE, PT WITH POTASSIUM LEVEL 7.3 MD AWARE, HD TODAY. SAFETY PRECAUTIONS IN PLACE BED IN LOWEST LOCKED POSITION, X2 SIDE RAILS UP AND CALL LIGHT WITHIN REACH. PT ORIENTED TO ROOM AND UNIT, DR. RIVAS AWARE OF PT'S ARRIVAL, PICTURES OF SKIN TAKEN, WILL CONTINUE TO MONITOR AND ENDORSED TO NEXT SHIFT FOR CONTINUITY OF CARE
[2018-03-10 20:00] VITALS: BP 122/62
--- NOTE | 2018-03-10 20:00 | NUR ---
RN NOTES RECEIVED PT. AWAKE ON BED, A/OX4, SR ON TELE MONITOR HR-88, DENIES PAIN, NO SOB, BILATERAL EXTREMITIES WITH DRESSING-DRY AND INTACT, CALL LIGHT WITHIN REACH, SIDERAILSUPX2, WILL CONTINUE TO MONITOR
[2018-03-10] MEDS: METOPROLOL TARTRATE 25 MG TABLET PO SCH ×2 (21:00→21:44)
--- NOTE | 2018-03-10 21:00 | NUR ---
RN NOTES PT. REFUSED HIS METOPROLOL MEDICATION PT. STATED HE " DOESN'T WANT HIS BP TO DROPPED BUT EXPLAINED TO THE PT. THAT HIS BP IS 122/62 AND ALSO THE IMPORTANCE OF THIS MEDICATION. PT, STILL REFUSED TO TAKE THIS MED
--- NOTE | 2018-03-10 21:30 | NUR ---
RN NOTES VANCOMYCIN IV STOPPED PT. COMPLAINING OF ITCHINESS, ASKED THE PT. IF THIS IS THE FIRST TIME TO RECEIVE VANCOMYCIN ANTIBIOTIC, PT. STATED " HE RECEIVED IT BEFORE AND HE REMEMBERED TO HAVE ITCHINESS AFTER HE RECEIVED IT"
[2018-03-11] VITALS: BP 114/63
[2018-03-11 05:00] VITALS: BP 96/54
[2018-03-11] MEDS: METRONIDAZOLE 500 MG TABLET PO SCH ×3 (05:00→21:42)
[2018-03-11 05:10] VITALS: BP 96/54
[2018-03-11] MEDS ORDERED: ANESTHESIA TRAY IN PYXIS 1 EA TRAY MC ONE (07:00)
--- NOTE | 2018-03-11 07:00 | NUR ---
RN NOTES AWAKE, MORNING CARE RENDERED, SENT TO OR, DENIES PAIN, NO SOB, PT. NEEDS ATTENDED
[2018-03-11 07:04] LABS: BASOPHILS % (AUTO) 0.1 % (0.0-2.0); EOSINOPHILS % (AUTO) 1.1 % (0.0-6.0); HEMATOCRIT 34 % (39-51); HEMOGLOBIN 11.1 g/dL (13.5-17.5); LYMPHOCYTES # (AUTO) 0.8 /CMM (0.8-4.8); MEAN CORPUSCULAR HEMOGLOBIN 30 PG (26.0-33.0); MEAN CORPUSCULAR HGB CONC 32 g/dl (31.0-36.0); MEAN CORPUSCULAR VOLUME 93 fL (80-96); MONOCYTES # (AUTO) 0.7 /CMM (0.1-1.30); MONOCYTES % (AUTO) 8.5 % (2.0-12.0); NEUTROPHILS % (AUTO) 79.3 % (43.0-81.0); PLATELET COUNT (AUTO) 250 /CMM (150-450); RDW COEFFICIENT OF VARIATION 16.6 (11.5-15.0); RED BLOOD CELL COUNT(AUTO) 3.68 MIL/uL (4.5-6.0); WHITE BLOOD COUNT (AUTO) 7.6 K/uL (4.3-11.0)
[2018-03-11 07:11] LABS: CALCIUM, SERUM 7.1 mg/dL (8.5-10.1); CREATININE 5.5 mg/dL (0.6-1.3); POTASSIUM 4.7 mmol/L (3.5-5.1)
[2018-03-11] MEDS ORDERED: LIDOCAINE HCL/PF 1% 30 ML SDV ONE (07:11)
[2018-03-11] MEDS ORDERED: MINERAL OIL 10 ML VIAL MC ONE (07:12)
--- NOTE | 2018-03-11 07:15 | NUR ---
ARABIC TEACHER Initial Notes Received patient on sitting on wheelchair no SOB or pain complaint. With OR staff to cigar packer and picker patient for scheduled debridement.
[2018-03-11] MEDS ORDERED: FENTANYL PF 250MCG/5ML AMPUL ONE (07:21)
[2018-03-11] MEDS ORDERED: ATRACURIUM 100MG/10 ML MDV IV ONE (07:22)
[2018-03-11] MEDS ORDERED: SUCCINYLCHOLINE CHLORIDE 20 MG/ML VIAL ONE (07:22)
[2018-03-11] MEDS: BLOOD SUGAR DIAGNOSTIC 1 EACH STRIP VI SCH ×4 (07:30→21:43)
[2018-03-11] MEDS ORDERED: CEFAZOLIN SODIUM IV SCH (09:00)
[2018-03-11] MEDS ORDERED: DEXTROSE ISO IV SCH (09:00)
[2018-03-11] MEDS: METOPROLOL TARTRATE 25 MG TABLET PO SCH ×3 (09:00→21:00)
[2018-03-11] MEDS: AMLODIPINE BESYLATE 5 MG TABLET PO SCH ×2 (09:00→10:30)
[2018-03-11] MEDS ORDERED: [UNRECOGNIZED DRUG - OTHER] IV SCH (09:00)
[2018-03-11] MEDS ORDERED: VANCOMYCIN 500 MG in IV D5W 100 ML IV PRN (10:00)
[2018-03-11] MEDS: BUMETANIDE (1 MG) 1 MG TABLET PO SCH ×2 (10:28→16:19)
[2018-03-11] MEDS: LACTOBACILLUS RHAMNOSUS GG 1 EACH CAP.SPRINK PO SCH ×2 (10:28→16:20)
[2018-03-11] MEDS: FLUDROCORTISONE 0.1 MG TABLET PO SCH ×2 (10:29→16:21)
[2018-03-11] MEDS: TERAZOSIN HCL 5 MG CAPSULE PO SCH ×2 (10:29→16:22)
[2018-03-11] MEDS: DAKINS QUARTER STRENGTH (0.125%) 480 ML BOTTLE TOP SCH (10:30)
[2018-03-11] MEDS: SILVER SULFADIAZINE CREAM 25 GM TUBE TP SCH (10:30)
--- NOTE | 2018-03-11 10:40 | NUR ---
telegraph inspector notes Held blood pressure medication due to patient refusal, explained the risk and benefits x 3 and still refused. Will continue to monitor accordingly.
[2018-03-11 10:50] VITALS: BP 130/69
[2018-03-11] MEDS ORDERED: ASCORBIC ACID 500 MG TABLET PO SCH (11:30)
[2018-03-11] MEDS: ZINC SULFATE 220 MG CAPSULE PO SCH (11:40)
--- NOTE | 2018-03-11 12:00 | NUR ---
LAMP ASSEMBLER Notes Blood sugar - 147mg/dl. Held insulin medication due to patient refusal, explained the risk and benefits x 3 but patient insisted to refuse the insulin. Will continue to monitor accordingly.
[2018-03-11] MEDS: ANCEF 1 GM/50 ML D5W IV SCH ×2 (16:19)
[2018-03-11 16:35] VITALS: BP 120/68
[2018-03-11] MEDS: CALCIUM ACETATE 667 MG TABLET PO SCH (17:17)
--- NOTE | 2018-03-11 17:23 | NUR ---
tele marketing executive notes Attempted to check patient blood sugar and patient refused blood sugar checking. Explained the risk and benefits x 3 and still refused. Will continue to monitor accordingly.
--- NOTE | 2018-03-11 18:48 | NUR ---
TEXTILE TECHNICAL OFFICER CLOSING NOTES Patient awake on bed, on Solares's position. No complaints of pain noted. Kept clean, dry and comfortable. Noted to be refusing BP meds and blood sugar monitoring and insulin. All needs attended. Afebrile throughout the shift. No new unusualities noted. Endorsed to the next shift.
--- NOTE | 2018-03-11 19:55 | NUR ---
RN OPENING NOTES RECEIVED REPORT FROM DANGELO RNSHAISTA. FOUND Pt AWAKE, RESTING IN BED. NO S/S OF ACUTE DISTRESS OR SOB NOTED. Pt IS A/OX3, VERBAL, ABLE TO MAKE NEEDS KNOWN. ON TELE MONITOR, WITH SR. IV ACCESS ON LAC #18G, SL. RCW PERMACATH & NEW RFA AV SHUNT. S/P R LEG SKIN GRAFT. HD SCHEDULED FOR TOMORROW. SAFETY MEASURES IN PLACE. BED LOW, LOCKED, HOB ELEVATED, SIDE RAILS UP, CALL LIGHT AND BEDSIDE TABLE WITHIN REACH. WILL CONTINUE TO MONITOR Pt THROUGHOUT THE NIGHT FOR SAFETY.
[2018-03-11 20:00] VITALS: BP 114/65
--- NOTE | 2018-03-11 22:00 | NUR ---
RN NOTES Pt REFUSED TO TAKE LOPRESSOR SINCE HIS BP WAS 114/65. Pt ALSO REFUSED HIS ACCUCHECK.
[2018-03-12] VITALS (7 sets, daily range): BP systolic 106–136; BP diastolic 64–84
[2018-03-12] MEDS: METRONIDAZOLE 500 MG TABLET PO SCH ×2 (05:56→12:23)
--- NOTE | 2018-03-12 06:30 | NUR ---
RN NOTES Pt REFUSED ACCUCHECK.
[2018-03-12] MEDS: BLOOD SUGAR DIAGNOSTIC 1 EACH STRIP VI SCH ×4 (06:46→21:13)
--- NOTE | 2018-03-12 06:55 | NUR ---
RN CLOSING NOTES NO SIGNIFICANT CHANGES IN Pt's CONDITION. Pt REMAINS STABLE AT THIS TIME. NO S/S OF ACUTE DISTRESS OR SOB NOTED DURING THE NIGHT. ALL NEEDS MET AND ATTENDED TO. SAFETY MEASURES IN PLACE. WILL ENDORSE TO DAYSHIFT RN FOR Pt's AMINA.
[2018-03-12 07:24] LABS: BASOPHILS % (AUTO) 0.3 % (0.0-2.0); EOSINOPHILS % (AUTO) 1.9 % (0.0-6.0); HEMATOCRIT 33 % (39-51); HEMOGLOBIN 10.6 g/dL (13.5-17.5); LYMPHOCYTES % (AUTO) 14.3 % (20.0-44.0); MEAN CORPUSCULAR HEMOGLOBIN 30 PG (26.0-33.0); MEAN CORPUSCULAR HGB CONC 33 g/dl (31.0-36.0); MEAN CORPUSCULAR VOLUME 93 fL (80-96); MONOCYTES # (AUTO) 0.5 /CMM (0.1-1.30); MONOCYTES % (AUTO) 7.2 % (2.0-12.0); NEUTROPHILS # (AUTO) 5.1 /CMM (1.8-8.9); NEUTROPHILS % (AUTO) 76.3 % (43.0-81.0); PLATELET COUNT (AUTO) 237 /CMM (150-450); RDW COEFFICIENT OF VARIATION 15.9 (11.5-15.0); WHITE BLOOD COUNT (AUTO) 6.7 K/uL (4.3-11.0)
[2018-03-12 07:38] LABS: CALCIUM, SERUM 7.4 mg/dL (8.5-10.1); CREATININE 6.4 mg/dL (0.6-1.3); MAGNESIUM 2.6 mg/dL (1.8-2.4); POTASSIUM 4.6 mmol/L (3.5-5.1)
[2018-03-12 07:39] LABS: PHOSPHORUS 8.7 mg/dL (2.5-4.9)
--- NOTE | 2018-03-12 07:52 | NUR ---
EDGE BURNISHER UPPERS INITIAL NOTES Received patient awake comfortably on Solares's position on bed. With casted BLE elevated with pillow. On day-1 post wound debridement. Bed rest with no weight bearing on BLE. Afebrile with no complaints of discomfort at this time. With patent and intact SL on LAC with G#18. With permacath @ RCW, with new AV shunt @ RFA. Labs phosphorus 8.7, for dialysis this AM. Kept clean, dry and comfortable with call light within easy reach. Will monitor accordingly.
[2018-03-12] MEDS: CALCIUM ACETATE 667 MG TABLET PO SCH ×3 (08:31→17:18)
[2018-03-12] MEDS: BUMETANIDE (1 MG) 1 MG TABLET PO SCH ×2 (08:32→16:23)
[2018-03-12] MEDS: FLUDROCORTISONE 0.1 MG TABLET PO SCH ×2 (08:32→16:23)
[2018-03-12] MEDS: ZINC SULFATE 220 MG CAPSULE PO SCH (08:32)
[2018-03-12] MEDS: VIT B CMPLX 3/FA/VIT C/BIOTIN 1 TAB TABLET PO SCH (08:32)
[2018-03-12] MEDS: ASCORBIC ACID 500 MG TABLET PO SCH (08:32)
[2018-03-12] MEDS: LACTOBACILLUS RHAMNOSUS GG 1 EACH CAP.SPRINK PO SCH ×2 (08:32→16:23)
[2018-03-12] MEDS: AMLODIPINE BESYLATE 5 MG TABLET PO SCH (08:33)
[2018-03-12] MEDS: METOPROLOL TARTRATE 25 MG TABLET PO SCH ×2 (08:34→21:00)
[2018-03-12] MEDS: DAKINS QUARTER STRENGTH (0.125%) 480 ML BOTTLE TOP SCH (08:35)
[2018-03-12] MEDS: TERAZOSIN HCL 5 MG CAPSULE PO SCH ×2 (08:35→16:24)
[2018-03-12] MEDS: SILVER SULFADIAZINE CREAM 25 GM TUBE TP SCH (08:36)
[2018-03-12] MEDS ORDERED: VANCOMYCIN 500 MG in IV D5W 100 ML IV PRN (14:00)
[2018-03-12] MEDS: ANCEF 1 GM/50 ML D5W IV SCH ×2 (16:41)
--- NOTE | 2018-03-12 18:41 | NUR ---
HUMAN SERVICE WORKER CLOSING NOTES Patient awake on bed comfortably. No complaints of discomfort and any unusualities noted. All due meds given but patient refused to take BP meds and refused for blood sugar monitoring. On tele monitoring with SR with occasional PAC. Explained the risk of denying the medication and blood sugar monitoring; patient verbalized understanding but insisted to refused those meds. Kept BLE elevated at all times while on bed. No change of condition noted. Endorsed to the next shift.
--- NOTE | 2018-03-12 19:40 | NUR ---
WATER SAFETY INSTRUCTOR OPENING NOTES RECEIVED PATIENT IN BED, AWAKE ALERT AND ORIENTED X 3, ABLE TO MAKE NEEDS KNOWN, RESPIRATIONS EVEN AND UNLABORED, WITH EQUAL RISE AND FALL OF CHEST, DENIES ANY PAIN OR DISCOMFORT AT THIS TIME, ON VACUUM REPAIRER SR 84, IV SITE SL TO LEFT HAND #18G, NO REDNESS NO INFILTRATION PRESENT AT THIS TIME, PATIENT ALSO HAS R FA AV SHUNT AND RIGHT CHEST PATRIZIA CATH. ORIENTED TO STAFF AND CALL LIGHT, CALL LIGHT KEPT WITHIN REACH. NOTED BILATERAL LOWER LEG DRESSING INTACT AND DRY, SAFETY PRECAUTIONS IN PLACE, LOW BED , BED LOCKED, MADE PATIENT AWARE TO UTILIZE CALL LIGHT IF NEED TO USE RESTROOM, PER PATIENT " I CAN DO IT , ZACHARIAH BEEN DOING IT THE CAST DOESNT AFFECT ME", PATIENT AWARE OF AVOIDING TO MUCH WEIGHT TO BILATERAL LOWER LEGS, ALL NEEDS ATTENDED AT THIS TIME, REMAINS COMFORTABLE.
[2018-03-12] MEDS ORDERED: FLUCONAZOLE (100 MG) 100 MG TABLET PO SCH (20:00)
--- NOTE | 2018-03-12 20:39 | NUR ---
CHUCKING AND BORING MACHINE OPERATOR NOTES CLARIFICATION PATIENT HAS RIGHT CHEST PERMACATH
[2018-03-12] MEDS: LINEZOLID 600 MG TABLET PO SCH (21:12)
--- NOTE | 2018-03-12 21:19 | NUR ---
SHEARING MACHINE OPERATOR NOTES PATIENT REFUSED TO BLOOD PRESSURE MEDICATION JOAQUIN STATES" I DONT TAKE BLOOD PRESSURE MEDICATION AND DONT CHECK BLOOD SUGARS".
[2018-03-13] VITALS: BP 130/70
[2018-03-13 04:00] VITALS: BP_SYST 124; BP_SYST 128; BP_DIAS 76
--- NOTE | 2018-03-13 06:52 | NUR ---
FURNITURE RENTAL CONSULTANT CLOSING NOTES PATIENT REMAINS IN BED, AWAKE ALERT AND ORIENTED X 4, ABLE TO MAKE NEEDS KNOWN, RESPIRATIONS EVEN AND UNLABORED WITH EQUAL RISE AND FALL OF CHEST, DENIES ANY PAIN OR DISCOMFORT AT THIS TIME, DRESSINGS TO LEGS REMAINS DRY AND INTACT, PATIENT REFUSED MORNING BLOOD SUGAR CHECK STATES " I DONT CHECK IT". REMAINS COMFORTABLE AT THIS TIME, FLUIDS OFFERED, PATIENT DOES NOT WANT ANY AT THIS TIME. ALL NEEDS ATTENDED, PATIENT REMAINS COMFORTABLE ALL NEEDS ATTENDED CALL LIGHT KEPT WITHIN REACH, SAFETY PRECAUTIONS IN PLACE, LOW BED AND LOCKED, NO CHANGES OF CONDITION THROUGH SHIFT, WILL CONTINUE TO MONITOR AND ENDORSE TO NEXT SHIFT.
[2018-03-13] MEDS: BLOOD SUGAR DIAGNOSTIC 1 EACH STRIP VI SCH ×2 (07:04→12:00)
[2018-03-13 07:08] LABS: BASOPHILS % (AUTO) 0.3 % (0.0-2.0); EOSINOPHILS % (AUTO) 2.4 % (0.0-6.0); HEMATOCRIT 34 % (39-51); HEMOGLOBIN 10.9 g/dL (13.5-17.5); LYMPHOCYTES # (AUTO) 0.9 /CMM (0.8-4.8); LYMPHOCYTES % (AUTO) 13.6 % (20.0-44.0); MEAN CORPUSCULAR HEMOGLOBIN 30 PG (26.0-33.0); MEAN CORPUSCULAR HGB CONC 33 g/dl (31.0-36.0); MEAN CORPUSCULAR VOLUME 93 fL (80-96); MONOCYTES # (AUTO) 0.5 /CMM (0.1-1.30); MONOCYTES % (AUTO) 7.8 % (2.0-12.0); NEUTROPHILS % (AUTO) 75.9 % (43.0-81.0); PLATELET COUNT (AUTO) 238 /CMM (150-450); RDW COEFFICIENT OF VARIATION 15.9 (11.5-15.0); WHITE BLOOD COUNT (AUTO) 6.6 K/uL (4.3-11.0)
[2018-03-13 07:15] LABS: CREATININE 5.5 mg/dL (0.6-1.3); POTASSIUM 4.7 mmol/L (3.5-5.1)
--- NOTE | 2018-03-13 07:28 | NUR ---
INTEGRITY ASSESSOR NOTES PATIENT RECEIVED RESTING INSIDE ROOM. AWAKE, ALERT AND ORIENTED X 4, VERBALLY RESPONSIVE AND RESPONDS TO VERBAL AND TACTILE STIMULI. PATIENT BREATHING EVEN AND UNLABORED. NO SOB OR ACUTE DISTRESS NOTED. PATIENT CALM AND REALXED. NO CHANGES IN LOC NOTED AT THIS TIME. PATIENT AFEBRILE, SKIN DRY AND WARM TO TOUCH. WILL CONTINUE TO MONITOR. BED LOCKED AND IN LOW POSITION. BILATERAL UPPER SIDE RAILS UP AND LOCKED. CALL LIGHT WITHIN EASY REACH
[2018-03-13 08:00] VITALS: BP 110/66
[2018-03-13] MEDS: LACTOBACILLUS RHAMNOSUS GG 1 EACH CAP.SPRINK PO SCH (08:22)
[2018-03-13] MEDS: VIT B CMPLX 3/FA/VIT C/BIOTIN 1 TAB TABLET PO SCH (08:22)
[2018-03-13] MEDS: ASCORBIC ACID 500 MG TABLET PO SCH (08:22)
[2018-03-13] MEDS: LINEZOLID 600 MG TABLET PO SCH (08:22)
[2018-03-13] MEDS: CALCIUM ACETATE 667 MG TABLET PO SCH ×2 (08:22→12:35)
[2018-03-13] MEDS: ZINC SULFATE 220 MG CAPSULE PO SCH (08:22)
[2018-03-13] MEDS: FLUDROCORTISONE 0.1 MG TABLET PO SCH (08:22)
[2018-03-13] MEDS: DAKINS QUARTER STRENGTH (0.125%) 480 ML BOTTLE TOP SCH (08:23)
[2018-03-13] MEDS: METOPROLOL TARTRATE 25 MG TABLET PO SCH (08:23)
[2018-03-13] MEDS: BUMETANIDE (1 MG) 1 MG TABLET PO SCH (08:23)
[2018-03-13] MEDS: TERAZOSIN HCL 5 MG CAPSULE PO SCH (08:23)
[2018-03-13] MEDS: SILVER SULFADIAZINE CREAM 25 GM TUBE TP SCH (08:23)
[2018-03-13 08:24] VITALS: BP 110/66
[2018-03-13] MEDS: AMLODIPINE BESYLATE 5 MG TABLET PO SCH (08:24)
[2018-03-13] MEDS ORDERED: CEPH-570 PO (09:01)
[2018-03-13] MEDS ORDERED: FLUC100T8 PO (09:01)
--- NOTE | 2018-03-13 12:15 | NUR ---
MS RN NOTES PATIENT SEEN AND EXAMINED BY DR. MOSS, WITH NEW ORDERS FOR PATIENT TO CLEAR FOR DISCHARGE HOME. ORDER NOTED AND CARRIED OUT. PATIENT MADE AWARE AND VERBALIZED UNDERSTANDING. DR. HARE MADE AWARE AND CLEARED PATIENT, SAID OK FOR PATIENT TO DISCHARGE, TO FOLLOW-UP WITHIN 1 WEEK. CASE MANAGEMENT AWARE, WITH SET-UP APPOINTMENT WITH [facility] AND DR. HARE ON 03/19/18. COPY OF APPOINTMENT SCHEDULE PROVIDED TO PATIENT. WOUND PICTURES DONE, PATIENT WITH WOUNDS ON BLE (BILATERAL LEGS AND FEET), PATIENT NOW WITH CAST ON BLE FROM LEGS EXTENDING TO TOES. PATIENT VERBALIZED THAT PER MD, CASTS TO STAY FOR 1 WEEK AND WILL BE CHECKED ON HIS FOLLOW-UP APPOINTMENT, DOES NOT WANT CASTS TO BE OPENED AT THIS TIME. PATIENT ALSO HAD SKIN REMOVED ON RIGHT THIGH FOR SKIN GRAFTING DONE ON FEET, DRESSING IN PLACE AND WRAPPED WITH YOHANA BANDAGE ON RIGHT THIGH. PATIENT REFUSED DRESSING TO BE OPENED, VERBALIZED THAT HE WANTS DRESSING ON RIGHT THIGH TO STAY UNTIL HIS NEXT FOLLOW-UP APPOINTMENT. WILL CONTINUE TO MONITOR
--- NOTE | 2018-03-13 13:26 | NUR ---
MS RN NOTES PATIENT FOR DISCHARGE HOME TODAY. DISCHARGE INSTRUCTIONS AND EDUCATION GIVEN TO PATIENT AND VERBALIZED UNDERSTANDING. ALL BELONGINGS COMPLETE ON DISCHARGE, NO REPORT OF MISSING INVENTORY. IV REMOVED WITH MINIMAL BLEEDING NOTED, PRESSURE DRESSING APPLIED TO SITE. NO BLEEDING NOTED ON WOUND DRESSINGS. PATIENT LEFT UNIT AT 1320 VIA WHEELCHAIR ACCOMPANIED BY FRIEND, FELIPE. PATIENT ACCOMPANIED TO OUTSIDE PARKING LOT, LEFT HOSPITAL BY PRIVATE CAR. MD AWARE OF DISCHARGE.
== END 2018-03-13 13:30 | disposition home or self-care (01) | DRG 623 ==
LOC: ER 11:45 → MED 12:57 → TELE 13:09 → MED 03-13 10:15
PROVIDERS: ADMIT Internal Medicine; ATTEND Internal Medicine
PROC: 5A1D70Z Performance of Urinary Filtration, Intermittent, Less than 6 Hours Per Day (ICD-10-PCS; 2018-03-10)
PROC: 5A1D70Z Performance of Urinary Filtration, Intermittent, Less than 6 Hours Per Day (ICD-10-PCS; 2018-03-10)
PROC: 0HBHXZZ Excision of Right Upper Leg Skin, External Approach (ICD-10-PCS; 2018-03-11)
PROC: 0HRMX74 Replacement of Right Foot Skin with Autologous Tissue Substitute, Partial Thickness, External Approach (ICD-10-PCS; 2018-03-11)
PROC: 0HRHX74 Replacement of Right Upper Leg Skin with Autologous Tissue Substitute, Partial Thickness, External Approach (ICD-10-PCS; principal; 2018-03-11 07:30)
PROC: 0KBV0ZZ Excision of Right Foot Muscle, Open Approach (ICD-10-PCS; 2018-03-11 07:30)
DX: E11.621 Type 2 diabetes mellitus with foot ulcer (principal); I12.0 Hypertensive chronic kidney disease with stage 5 chronic kidney disease or end stage renal disease; L97.929 Non-pressure chronic ulcer of unspecified part of left lower leg with unspecified severity; L97.919 Non-pressure chronic ulcer of unspecified part of right lower leg with unspecified severity; N18.6 End stage renal disease; E11.22 Type 2 diabetes mellitus with diabetic chronic kidney disease; E11.42 Type 2 diabetes mellitus with diabetic polyneuropathy; I87.2 Venous insufficiency (chronic) (peripheral); I48.91 Unspecified atrial fibrillation; Z98.890 Other specified postprocedural states; Z79.4 Long term (current) use of insulin; Z79.899 Other long term (current) drug therapy; Z79.84 Long term (current) use of oral hypoglycemic drugs; M19.90 Unspecified osteoarthritis, unspecified site; E87.5 Hyperkalemia; E78.5 Hyperlipidemia, unspecified; E11.622 Type 2 diabetes mellitus with other skin ulcer; D63.8 Anemia in other chronic diseases classified elsewhere; E11.610 Type 2 diabetes mellitus with diabetic neuropathic arthropathy; Z98.1 Arthrodesis status; Z99.2 Dependence on renal dialysis; Z68.30 Body mass index [BMI] 30.0-30.9, adult; N40.0 Benign prostatic hyperplasia without lower urinary tract symptoms; E66.9 Obesity, unspecified; G90.8 Other disorders of autonomic nervous system; M85.9 Disorder of bone density and structure, unspecified
CPT/HCPCS: 36415; 71045-TC; 80048-TC; 80076-TC; 82962-TC; 83605-TC; 83735-TC; 84100-TC; 84132-TC; 84484-TC; 85025-TC; 85730-TC; 86850-TC; 87040-TC; 87081-TC; 88305-TC; 88312-TC; 90935-TC; A4216; A4606; A6253; A6402; A6403; J0330; J0610; J0690; J1815; J3010; J3370; J3490; J7040; J7050; J7060; Z7610

== ENCOUNTER 2018-03-19 10:09 | Outpatient (CLI) | payer MEDICARE ==
[~2018-03-19 10:09] MED LIST changes: -CEFA1PIG IV; +CEPH-570 PO; +FLUC100T8 PO; -METR500T PO
== END 2018-03-19 23:59 | disposition home health service (06) ==
LOC: WOU 10:09
PROVIDERS: ATTEND Podiatrist Foot & Ankle Surgery
DX: Z48.817 Encounter for surgical aftercare following surgery on the skin and subcutaneous tissue (principal); T81.89XD Other complications of procedures, not elsewhere classified, subsequent encounter; Z94.5 Skin transplant status; E11.610 Type 2 diabetes mellitus with diabetic neuropathic arthropathy; E11.42 Type 2 diabetes mellitus with diabetic polyneuropathy; Z86.31 Personal history of diabetic foot ulcer
CPT/HCPCS: 29445 ×2; A6402; Z7610

== ENCOUNTER 2018-03-26 10:06 | Outpatient (CLI) | payer MEDICARE | END 2018-03-26 23:59 | disposition home health service (06) | LOC: WOU 10:06 | PROVIDERS: ATTEND Podiatrist Foot & Ankle Surgery | DX: Z48.817 Encounter for surgical aftercare following surgery on the skin and subcutaneous tissue (principal); T81.89XD Other complications of procedures, not elsewhere classified, subsequent encounter; E11.610 Type 2 diabetes mellitus with diabetic neuropathic arthropathy; E11.22 Type 2 diabetes mellitus with diabetic chronic kidney disease; E11.42 Type 2 diabetes mellitus with diabetic polyneuropathy; N18.6 End stage renal disease; Z99.2 Dependence on renal dialysis; Z94.5 Skin transplant status | CPT/HCPCS: 29445 ×2; 87070 ×2; 87075 ×2; A6402 ×2; Z7610; 87186-TC ==

== ENCOUNTER 2018-04-02 10:07 | Outpatient (CLI) | payer MEDICARE | END 2018-04-02 23:59 | disposition home health service (06) | LOC: WOU 10:07 | PROVIDERS: ATTEND Podiatrist Foot & Ankle Surgery | DX: Z48.817 Encounter for surgical aftercare following surgery on the skin and subcutaneous tissue (principal); T81.31XD Disruption of external operation (surgical) wound, not elsewhere classified, subsequent encounter; L03.115 Cellulitis of right lower limb; B95.62 Methicillin resistant Staphylococcus aureus infection as the cause of diseases classified elsewhere; B95.2 Enterococcus as the cause of diseases classified elsewhere; T81.89XD Other complications of procedures, not elsewhere classified, subsequent encounter; E11.610 Type 2 diabetes mellitus with diabetic neuropathic arthropathy; E11.22 Type 2 diabetes mellitus with diabetic chronic kidney disease; E11.42 Type 2 diabetes mellitus with diabetic polyneuropathy; N18.6 End stage renal disease; Z99.2 Dependence on renal dialysis | CPT/HCPCS: 29445 ×2; A6402; Z7610 ==

== ENCOUNTER 2018-04-09 10:02 | Outpatient (CLI) | payer MEDICARE | END 2018-04-09 23:59 | disposition home health service (06) | LOC: WOU 10:02 | PROVIDERS: ATTEND Podiatrist Foot & Ankle Surgery | DX: Z48.817 Encounter for surgical aftercare following surgery on the skin and subcutaneous tissue (principal); T81.89XA Other complications of procedures, not elsewhere classified, initial encounter; T81.30XA Disruption of wound, unspecified, initial encounter; E11.610 Type 2 diabetes mellitus with diabetic neuropathic arthropathy; E11.22 Type 2 diabetes mellitus with diabetic chronic kidney disease; E11.42 Type 2 diabetes mellitus with diabetic polyneuropathy; N18.6 End stage renal disease; Z99.2 Dependence on renal dialysis | CPT/HCPCS: 11042; 11044; 11047; A6402; Z7610 ==

== ENCOUNTER 2018-04-16 10:05 | Outpatient (CLI) | payer MEDICARE | END 2018-04-16 23:59 | disposition home health service (06) | LOC: WOU 10:05 | PROVIDERS: ATTEND Podiatrist Foot & Ankle Surgery | DX: Z48.817 Encounter for surgical aftercare following surgery on the skin and subcutaneous tissue (principal); T81.31XA Disruption of external operation (surgical) wound, not elsewhere classified, initial encounter; T81.89XA Other complications of procedures, not elsewhere classified, initial encounter; E11.42 Type 2 diabetes mellitus with diabetic polyneuropathy; E11.22 Type 2 diabetes mellitus with diabetic chronic kidney disease; E11.610 Type 2 diabetes mellitus with diabetic neuropathic arthropathy; N18.6 End stage renal disease; Z99.2 Dependence on renal dialysis | CPT/HCPCS: 11042; 11043; 11046; A6402; A6452; Z7610 ==

== ENCOUNTER 2018-04-30 11:25 | Outpatient (CLI) | payer MEDICARE ==
[~2018-04-30 11:25] MED LIST changes: -AMLO5TAB2 PO; +AMLO5TAB7 PO
[2018-04-30] MEDS ORDERED: CELLULOSE,OXIDIZED 1 PKT EACH MC ONE (12:30)
== END 2018-04-30 23:59 | disposition home health service (06) ==
LOC: WOU 11:25
PROVIDERS: ATTEND Podiatrist Foot & Ankle Surgery
DX: T81.31XA Disruption of external operation (surgical) wound, not elsewhere classified, initial encounter (principal); T86.821 Skin graft (allograft) (autograft) failure; S81.811D Laceration without foreign body, right lower leg, subsequent encounter; X58.XXXD Exposure to other specified factors, subsequent encounter; E11.621 Type 2 diabetes mellitus with foot ulcer; L97.518 Non-pressure chronic ulcer of other part of right foot with other specified severity; L97.422 Non-pressure chronic ulcer of left heel and midfoot with fat layer exposed; L97.416 Non-pressure chronic ulcer of right heel and midfoot with bone involvement without evidence of necrosis; E11.22 Type 2 diabetes mellitus with diabetic chronic kidney disease; Z99.2 Dependence on renal dialysis; E11.42 Type 2 diabetes mellitus with diabetic polyneuropathy
CPT/HCPCS: 11042; 11043; 11046; A6402; A6452; Z7610

== ENCOUNTER 2018-04-30 13:51 | Outpatient (CLI) | payer MEDICARE | END 2018-04-30 23:59 | disposition home or self-care (01) | LOC: VASLAB 13:51 | PROVIDERS: ATTEND Surgery Vascular Surgery | DX: T82.590A Other mechanical complication of surgically created arteriovenous fistula, initial encounter (principal); N18.6 End stage renal disease | CPT/HCPCS: G0463 ==

== ENCOUNTER 2018-05-07 10:09 | Outpatient (CLI) | payer MEDICARE | END 2018-05-07 23:59 | disposition home health service (06) | LOC: WOU 10:09 | PROVIDERS: ATTEND Podiatrist Foot & Ankle Surgery | DX: E11.621 Type 2 diabetes mellitus with foot ulcer (principal); L97.512 Non-pressure chronic ulcer of other part of right foot with fat layer exposed; L97.414 Non-pressure chronic ulcer of right heel and midfoot with necrosis of bone; T86.821 Skin graft (allograft) (autograft) failure; E11.42 Type 2 diabetes mellitus with diabetic polyneuropathy; R60.0 Localized edema | CPT/HCPCS: 11044; 15275; A6402 ×2; Q4106 ×2; Z7610 ==

== ENCOUNTER 2018-05-14 10:05 | Outpatient (CLI) | payer MEDICARE | END 2018-05-14 23:59 | disposition home health service (06) | LOC: WOU 10:05 | PROVIDERS: ATTEND Podiatrist Foot & Ankle Surgery | DX: E11.621 Type 2 diabetes mellitus with foot ulcer (principal); L97.412 Non-pressure chronic ulcer of right heel and midfoot with fat layer exposed; L97.416 Non-pressure chronic ulcer of right heel and midfoot with bone involvement without evidence of necrosis; T86.821 Skin graft (allograft) (autograft) failure; E11.610 Type 2 diabetes mellitus with diabetic neuropathic arthropathy; E11.69 Type 2 diabetes mellitus with other specified complication; M86.8X7 Other osteomyelitis, ankle and foot; Z98.1 Arthrodesis status | CPT/HCPCS: 11042; 11044; A6402; Z7610 ==

== ENCOUNTER 2018-05-28 10:00 | Outpatient (CLI) | payer MEDICARE | END 2018-05-28 23:59 | disposition home health service (06) | LOC: WOU 10:00 | PROVIDERS: ATTEND Podiatrist Foot & Ankle Surgery | DX: E11.621 Type 2 diabetes mellitus with foot ulcer (principal); L97.412 Non-pressure chronic ulcer of right heel and midfoot with fat layer exposed; L97.416 Non-pressure chronic ulcer of right heel and midfoot with bone involvement without evidence of necrosis; T86.821 Skin graft (allograft) (autograft) failure; E11.42 Type 2 diabetes mellitus with diabetic polyneuropathy | CPT/HCPCS: 11042; 15275; 87070; 87075; A6209; A6402 ×2; A6452 ×2; Q4106 ×2; Z7610 ==

== ENCOUNTER 2018-07-30 11:02 | Outpatient (CLI) | payer MEDICARE | END 2018-07-30 23:59 | disposition home health service (06) | LOC: WOU 11:02 | PROVIDERS: ATTEND Podiatrist Foot & Ankle Surgery | DX: E11.621 Type 2 diabetes mellitus with foot ulcer (principal); L97.412 Non-pressure chronic ulcer of right heel and midfoot with fat layer exposed; L97.416 Non-pressure chronic ulcer of right heel and midfoot with bone involvement without evidence of necrosis; T86.821 Skin graft (allograft) (autograft) failure; E11.40 Type 2 diabetes mellitus with diabetic neuropathy, unspecified; R60.0 Localized edema | CPT/HCPCS: 15275; A6402; A6452; Q4101-JC; Z7610 ==

== ENCOUNTER 2018-08-09 09:40 | Outpatient (CLI) | payer MEDICARE ==
[~2018-08-09 09:40] MED LIST changes: -AMLO5TAB7 PO; +AMLO5TAB9 PO
[2018-08-26] MEDS ORDERED: DAPT350V IV (12:30)
== END 2018-08-09 23:59 | disposition home health service (06) ==
LOC: WOU 09:40
PROVIDERS: ATTEND Podiatrist Foot & Ankle Surgery
DX: E11.621 Type 2 diabetes mellitus with foot ulcer (principal); L97.414 Non-pressure chronic ulcer of right heel and midfoot with necrosis of bone; E11.42 Type 2 diabetes mellitus with diabetic polyneuropathy; E11.22 Type 2 diabetes mellitus with diabetic chronic kidney disease; I12.0 Hypertensive chronic kidney disease with stage 5 chronic kidney disease or end stage renal disease; N18.6 End stage renal disease; Z99.2 Dependence on renal dialysis; T86.821 Skin graft (allograft) (autograft) failure; R60.0 Localized edema; S80.811A Abrasion, right lower leg, initial encounter; X58.XXXA Exposure to other specified factors, initial encounter; Y92.89 Other specified places as the place of occurrence of the external cause
CPT/HCPCS: 11044; 87070-TC; 87186-TC; A6402; A6452

== ENCOUNTER 2018-08-16 09:58 | Outpatient (CLI) | payer MEDICARE ==
[2018-08-26] MEDS ORDERED: DAPT350V IV (12:30)
== END 2018-08-16 23:59 | disposition home health service (06) ==
LOC: WOU 09:58
PROVIDERS: ATTEND Podiatrist Foot & Ankle Surgery
DX: E11.621 Type 2 diabetes mellitus with foot ulcer (principal); L97.414 Non-pressure chronic ulcer of right heel and midfoot with necrosis of bone; T86.821 Skin graft (allograft) (autograft) failure; Z91.19 Patient's noncompliance with other medical treatment and regimen; E11.610 Type 2 diabetes mellitus with diabetic neuropathic arthropathy; R60.0 Localized edema; Z79.899 Other long term (current) drug therapy
CPT/HCPCS: 11044; 11047; A6402; A6452

== ENCOUNTER 2018-08-18 13:58 | Inpatient (IN) | payer MEDICARE ==
[~2018-08-18] VITALS: Ht 182.9 cm; Wt 79.4 kg
--- NOTE | 2018-08-18 14:15 | NUR ---
BIB FAMILY, PER PT, HE WAS TOLD TO COME IN TO ER FOR ADMISSION FOR RIGHT FOOT SURGERY ON 08/21/[address] HEALY - DM FOOT ULCER BOTH LEGS NO COMPLAINTS, TO ER BED 9, HOOKED TO MONITOR.
--- NOTE | 2018-08-18 14:20 | NUR ---
SEEN BY DR ESCOBEDO
[2018-08-18 14:41] LABS: BASOPHILS # (AUTO) 0.1 /CMM (0.0-0.2); BASOPHILS % (AUTO) 0.6 % (0.0-2.0); EOSINOPHILS % (AUTO) 0.4 % (0.0-6.0); HEMATOCRIT 24 % (39-51); HEMOGLOBIN 7.8 g/dL (13.5-17.5); LYMPHOCYTES # (AUTO) 0.9 /CMM (0.8-4.8); LYMPHOCYTES % (AUTO) 8.9 % (20.0-44.0); MEAN CORPUSCULAR HGB CONC 32 g/dl (31.0-36.0); MEAN CORPUSCULAR VOLUME 90 fL (80-96); MONOCYTES # (AUTO) 0.7 /CMM (0.1-1.30); MONOCYTES % (AUTO) 6.4 % (2.0-12.0); NEUTROPHILS # (AUTO) 8.5 /CMM (1.8-8.9); NEUTROPHILS % (AUTO) 83.7 % (43.0-81.0); PLATELET COUNT (AUTO) 345 /CMM (150-450); WHITE BLOOD COUNT (AUTO) 10.2 K/uL (4.3-11.0)
--- NOTE | 2018-08-18 14:42 | NUR ---
Called nursing micrographics services supervisor and requested a med/surg bed for this pt.
[2018-08-18 14:54] LABS: CREATININE 4.3 mg/dL (0.6-1.3); POTASSIUM 4.1 mmol/L (3.5-5.1)
--- NOTE | 2018-08-18 14:57 | NUR ---
ORACLE WMS CONSULTANT/MED RECON PATIENT REPORTED NO HOME MEDICATION REGIMEN; NO to DM, HTN or ATB tx.
--- NOTE | 2018-08-18 15:38 | NUR ---
Pt is assigned to med/surg rm#: [id number], DX: Right foot ulcer, and accepting MD: Dr Amin
--- NOTE | 2018-08-18 15:52 | NUR ---
REPORT GIVEN TO TRISH LOMELI
--- NOTE | 2018-08-18 15:59 | NUR ---
LEADERSHIP COACH: FELIPE MELVIN (CAREGIVER): [phone]
--- NOTE | 2018-08-18 17:00 | NUR ---
ADMISSION NOTES PATIENT ADMITTED FROM ER 67YA/O 4 MALE ON DX OF RIGHT FOOT WOUND. SEND PATIENT ER BY DR REINA, SCHEDULED SURGERY ON 08/21/18 ON RIGHT FOOT WOUND. PATIENT STABLE NO ACUTE RESPIRATORY DISTRESS, V/S TAKEN BP-118/59, R-18, P-77, O2-96 ROOM AIR, T-98.1. PATIENT REFUSED PAIN AT THIS TIME, LUNGS ARE CLEAR DURING AUSCULTATION, UNLABORED. PATIENT TOTAL CARE. SKIN ASSESSMENT DONE PATIENT HAS, HD SHUNT ON RIGHT ARM, AND HD ACCESS ON RIGHT UPPER CHEST INTACT. EDEMA LEFT THIGH, AND CAST ON BLE. PATIENT MRSA OF WOUND ISOLATION. NEEDS ATTENDED AND ANTICIPATED, CALL LIGHT WITHIN TO REACH. Dr REINA , AND DR RUIZ AWARE OF NEW PATIENT AND MEDICATION. CONTINUED MONITORING.
[2018-08-18 17:07] VITALS: BP 118/59
--- NOTE | 2018-08-18 18:30 | NUR ---
RN NOTES PATIENT STABLE EATING. REFUSED PAIN AT THIS TIME, CALL LIGHT WITHIN TO REACH, SAFETY PRECAUTION MAINTAINED ALL THE TIME. ENDORSED ONCOMING NURSE FOR PLAN OF CARE.
--- NOTE | 2018-08-18 19:30 | NUR ---
RECEIVED PATIENT AWAKE IN BED. AO X 3, ABLE TO MAKE NEEDS KNOWN. NO ACUTE DISTRESS NOTED. DENIES PAIN AT THIS TIME. IV SITE PATENT, INTACT; FLUSHED. BIBI AV SHUNT INTACT; POSITIVE FOR BRUIT/THRILL. RU CHEST HD CATH INTACT WITH DRESSING INTACT. BLE DRESSINGS INTACT. SAFETY REMINDERS GIVEN. ON LOW BED WITH BILATERAL UPPER SIDE RAILS UP. CALL WHITFIELD WITHIN EASY REACH. WILL CONTINUE TO MONITOR.
[2018-08-18 20:00] VITALS: BP 100/54
[2018-08-18] MEDS ORDERED: MORPHINE SULFATE INJ 2 MG/ML DISP.SYRIN IV PRN (23:00)
[2018-08-18] MEDS ORDERED: VANCOMYCIN 1 GM in IV NS 0.9% 250 ML IV SCH (23:00)
[2018-08-18] MEDS ORDERED: MAGNESIUM HYDROXIDE 30 ML UDC PO PRN (23:00)
[2018-08-18] MEDS ORDERED: ONDANSETRON HCL/PF 4 MG/2 ML VIAL IVP PRN (23:00)
[2018-08-18] MEDS ORDERED: Z GUARD REMEDY 2 OZ OINT TP PRN (23:00)
[2018-08-18] MEDS ORDERED: ZOLPIDEM TARTRATE 5 MG TABLET PO PRN (23:00)
[2018-08-18] MEDS ORDERED: MAG HYDROX/AL HYDROX/SIMETH 30 ML UDC PO PRN (23:00)
--- NOTE | 2018-08-18 23:35 | NUR ---
PER PATIENT, HE HAD SEVERE ITCHING WHEN HE WAS GIVEN VANCOMYCIN. PHARMACIST MADE AWARE. DR. BENAVIDEZ MADE AWARE. ROMA PAPPAS.
[2018-08-19] VITALS (8 sets, daily range): BP systolic 102–125; BP diastolic 54–65
--- NOTE | 2018-08-19 02:45 | NUR ---
RECEIVED NEW ORDER FROM DR. BENAVIDEZ FOR ACCUCHECK AC HS WITH MILD SLIDING SCALE; NOTED AND CARRIED OUT.
[2018-08-19] MEDS ORDERED: DEXTROSE 50%-WATER 50 ML DISP.SYRIN IV PRN (03:00)
[2018-08-19] MEDS ORDERED: INSULIN REGULAR, HUMAN 100 UNIT/ML 3 ML VIAL SQ PRN (03:00)
--- NOTE | 2018-08-19 06:00 | NUR ---
PATIENT ASLEEP, EASILY AROUSABLE. RESPIRATIONS EVEN. NO SIGNS OF PAIN NOTED. NO SYMPTOMS OF HYPER/HYPOGLYCEMIA. NEEDS ATTENDED. SAFETY PRECAUTIONS AND COMFORT MEASURES IN PLACE. WILL GIVE REPORT TO DAY SHIFT FOR CONTINUITY OF CARE.
[2018-08-19] MEDS: BLOOD SUGAR DIAGNOSTIC 1 EACH STRIP IN SCH ×4 (06:39→22:00)
--- NOTE | 2018-08-19 07:22 | NUR ---
MS RN OPENING NOTES RECEIVED PATIENT AWAKE AND SITTING IN BED IN NO ACUTE SIGNS OF DISTRESS. A/O X 3. ABLE TO MAKE NEEDS KNOWN, NO C/O PAIN OR DISCOMFORTS AT THIS TIME. IV ACCESS ON LFA INTACT AND PATENT. BIBI AV SHUNT INTACT WITH POSITIVE BRUIT/THRILL. RIGHT UPPER CHEST HD CATH INTACT WITH DRESSING C/D/I. RIGHT LEG IN CAST, LEFT LEG WITH DRESSINGS INTACT. SAFETY MEASURES IN PLACE. BED IN LOW/LOCKED POSITION WITH BILATERAL UPPER SIDE RAILS UP. CALL WHITFIELD WITHIN EASY REACH. WILL CONTINUE TO MONITOR.
[2018-08-19 07:53] LABS: BASOPHILS % (AUTO) 0.2 % (0.0-2.0); EOSINOPHILS % (AUTO) 0.9 % (0.0-6.0); HEMATOCRIT 23 % (39-51); HEMOGLOBIN 7.5 g/dL (13.5-17.5); LYMPHOCYTES % (AUTO) 11.7 % (20.0-44.0); MEAN CORPUSCULAR HGB CONC 32 g/dl (31.0-36.0); MEAN CORPUSCULAR VOLUME 91 fL (80-96); MONOCYTES # (AUTO) 0.5 /CMM (0.1-1.30); MONOCYTES % (AUTO) 6.3 % (2.0-12.0); NEUTROPHILS % (AUTO) 80.9 % (43.0-81.0); PLATELET COUNT (AUTO) 310 /CMM (150-450); RED BLOOD CELL COUNT(AUTO) 2.55 MIL/uL (4.5-6.0); WHITE BLOOD COUNT (AUTO) 8.7 K/uL (4.3-11.0)
[2018-08-19 07:59] LABS: CALCIUM, SERUM 7.9 mg/dL (8.5-10.1); CREATININE 4.5 mg/dL (0.6-1.3); MAGNESIUM 1.9 mg/dL (1.8-2.4); POTASSIUM 3.7 mmol/L (3.5-5.1)
[2018-08-19] MEDS: IV D5/0.45 NACL 1,000 ML IV PRN (08:20)
[2018-08-19] MEDS ORDERED: DAPTOMYCIN 500 MG in IV NS 0.9% 50 ML IV SCH (10:30)
--- NOTE | 2018-08-19 10:55 | NUR ---
TEXTED DR. GORDON FOR MRI APPROVAL OF FOOT and ANKLE
--- NOTE | 2018-08-19 11:33 | NUR ---
RN NOTES PATIENT FOR RIGHT LOWER EXTREMITY WOUND DEBRIDEMENT , WOUND FLAP CLOSURE WITH POSSIBLE APPLICATION OF SKIN ALLOGRAFT AND WOUND VAC. SURGERY EXPLAINED TO PT BY MD AND VERBALIZED UNDERSTANDING. ALL CONSENTS SIGNED. WILL CONTINUE TO MONITOR.
[2018-08-19] MEDS: LINEZOLID RTU BAG 600 MG in PREMIX 1 EA IV SCH ×2 (12:18→23:23)
[2018-08-19] MEDS ORDERED: EPOETIN ALFA (10,000 UNIT) 10,000 UNIT/ML VIAL IV ONE (13:00)
--- NOTE | 2018-08-19 13:26 | NUR ---
RN NOTES PATIENT RIGHT LEG CAST REMOVED BY JEWELL RIGGINS. PHOTOS OF WOUNDS TAKEN AND FILED ON CHART. PT WENT FOR MRI OF RIGHT FOOT/ANKLE VIA WHEELCHAIR. WILL CONTINUE TO MONITOR.
--- NOTE | 2018-08-19 19:04 | NUR ---
RN NOTES PATIENT STARTED 1 OF 2 BAGS OF PRBC VIA BIBI AV SHUNT WITH HEMODIALYSIS. PRE V/S : BP 102/59, R 18, P 79 AND T 97.6. WILL MONITOR FOR ANY ADVERSE EFFECTS.
--- NOTE | 2018-08-19 19:25 | NUR ---
RN NOTES RECEIVED PT, IN BED, RECEIVING DIALYSIS AT THIS TIME AND ALSO 1 PRBC. PT IN NO ACUTE DISTRESS, VERBALLY RESPONSIVE AND IS ALERT AND ORIENTED X 4. DENIES PAIN AT THIS TIME, NO SOB AND BREATHING EVEN AND UNLABORED. WILL CONTINUE TO MONITOR PT.
--- NOTE | 2018-08-19 19:29 | NUR ---
RN NOTES NO ADVERSE REACTIONS NOTED AFTER 15 MINUTES OF BLOOD TRANSFUSION. ENDORSED TO CORPORATE SAFETY DIRECTOR NURSE TO INFUSE ANOTHER BAG OF PRBC WITH A TOTAL OF 2 BAGS.
--- NOTE | 2018-08-19 19:31 | NUR ---
MS RN CLOSING NOTES PATIENT AWAKE IN BED WITH HEMODIALYSIS AND BLOOD TRANSFUSION IN PROGRESS VIA BIBI AV SHUNT. A/O X 3. ABLE TO MAKE NEEDS KNOWN. IV ACCESS ON LFA INTACT AND PATENT, IVF OF D5 1/2 NS @ 75ML/HR INFUSING, NO S/S OF INFILTRATIONS NOTED. RIGHT UPPER CHEST HD CATH INTACT WITH DRESSING C/D/I. RIGHT AND LEFT LEG WITH DRESSINGS C/D/I. ALL SAFETY MEASURES IN PLACE. BED IN LOW/LOCKED POSITION WITH BILATERAL UPPER SIDE RAILS UP. CALL WHITFIELD WITHIN EASY REACH. ENDORSED TO RESOURCE ANALYST CORNELIA HUYNH.
[2018-08-20] MEDS: BLOOD SUGAR DIAGNOSTIC 1 EACH STRIP IN SCH ×4 (06:46→21:26)
--- NOTE | 2018-08-20 06:56 | NUR ---
RN CLOSING NOTES PATIENT IN BED, ASLEEP BUT EASILY AROUSABLE. IN NO DISTRESS THROUGHOUT THE SHIFT. PT NOTED WITH NO DISTRESS THROUGHOUT THE SHIFT. CONTINUES TO RECEIVE IVF ORDERED. PT IS NPO AT THIS TIME STARTING MIDNIGHT IN PREPARATION FOR RIGHT FOOT SURGERY SCHEDULED TODAY. ALL PATIENT'S NEEDS ATTENDED TO, PLACED CALL LIGHT WITHIN EASY REACH. WILL ENDORSE TO [facility] NURSE FOR CONTINUITY OF CARE.
[2018-08-20 07:03] LABS: BASOPHILS % (AUTO) 0.3 % (0.0-2.0); HEMATOCRIT 29 % (39-51); HEMOGLOBIN 9.4 g/dL (13.5-17.5); LYMPHOCYTES # (AUTO) 1.1 /CMM (0.8-4.8); LYMPHOCYTES % (AUTO) 13.1 % (20.0-44.0); MEAN CORPUSCULAR HGB CONC 33 g/dl (31.0-36.0); MEAN CORPUSCULAR VOLUME 89 fL (80-96); MONOCYTES # (AUTO) 0.5 /CMM (0.1-1.30); MONOCYTES % (AUTO) 6.2 % (2.0-12.0); NEUTROPHILS # (AUTO) 6.8 /CMM (1.8-8.9); NEUTROPHILS % (AUTO) 79.4 % (43.0-81.0); PLATELET COUNT (AUTO) 319 /CMM (150-450); RED BLOOD CELL COUNT(AUTO) 3.24 MIL/uL (4.5-6.0); WHITE BLOOD COUNT (AUTO) 8.5 K/uL (4.3-11.0)
[2018-08-20 07:15] LABS: CALCIUM, SERUM 7.9 mg/dL (8.5-10.1); CREATININE 3.6 mg/dL (0.6-1.3); MAGNESIUM 1.9 mg/dL (1.8-2.4); PHOSPHORUS 3.2 mg/dL (2.5-4.9); POTASSIUM 3.9 mmol/L (3.5-5.1)
[2018-08-20 08:00] VITALS: BP 118/69
--- NOTE | 2018-08-20 09:00 | NUR ---
DR. REINA IN TO SEE PT. TALKING ABOUT CANCELLING SURGERY.
--- NOTE | 2018-08-20 10:00 | NUR ---
SPOKE WITH YANI REDDY IN OR PROCEDURE CANCELLED.DR. REINA CALLED AND FOOD ORDERED FOR PT.
[2018-08-20] MEDS: LINEZOLID RTU BAG 600 MG in PREMIX 1 EA IV SCH (11:05)
[2018-08-20 16:00] VITALS: BP 118/62
[2018-08-20] MEDS: IV D5/0.45 NACL 1,000 ML IV PRN (16:18)
--- NOTE | 2018-08-20 18:00 | NUR ---
RT. LEG DRESSING CHANGED X2.HAD FAIR AMT. RED SANGUINOUS DRAINAGE FROM RT. HEEL THIS AM.AWAITING INFECTIOUS DZ TO COME IN AND SEE PT. PER INFO FROM DR. REINA.COMPRESSION DRSG. TO LEFT. LEG. PT. DENIES PAIN.
[2018-08-20 20:00] VITALS: BP 135/72
--- NOTE | 2018-08-20 20:00 | NUR ---
RN NOTES RECEIVED PATIENT IN BED, ALERT AND ORIENTED X4, STABLE ON ROOM AIR, DENIES ANY PAIN AT THIS TIME, CONTINENT OF BOWEL AND BLADDER, USES WHEEL CHAIR, INDEPENDENT WITH BED TO CHAIR TRANSFER, NOTED BLE EDEMA, RIGHT FOOT WOUND WITH DRESSING, LEFT LEG WITH COMPRESSION DRESSING. ARTERIAL DOPPLER TO BLE, PENDING RESULTS. IV FLUIDS HELD, PATIENT NOT ON NPO, SURGERY TO RIGHT FOOT CANCELLED, AND PT ON DIALYSIS, OLIGURIC. NO BP AND BLOOD DRAW TO RIGHT ARM. RIGHT UPPER CHEST PERMA CATH NOT WORKING, USES BIBI AV SHUNT, NOTED THRILL AND BRUIT, NO BLEEDING.
[2018-08-20] MEDS: LINEZOLID 600 MG TABLET PO SCH (20:59)
--- NOTE | 2018-08-20 21:27 | NUR ---
RN NOTES REFUSED ACCUCHECK, EDUCATED ON RISKS AND BENEFITS, STILL REFUSED, OFFERED X3
--- NOTE | 2018-08-21 07:22 | NUR ---
RN NOTES PATIENT IS ALERT AND ORIENTED X4, DENIES ANY PAIN, STABLE ON ROOM AIR, RIGHT FOOT WOUND DRESSING CHANGED, PATIENT ON ZYVOX PO, RIGHT FOOT DEBRIDEMENT IS POSTPONED FOR NOW AWAITING ID CONSULT, BLE ARTERIAL STUDY DONE, SEE RESULTS.PATIENT REFUSED ACCUCHECK ACHS.
[2018-08-21] MEDS: BLOOD SUGAR DIAGNOSTIC 1 EACH STRIP IN SCH ×4 (07:30→22:00)
[2018-08-21 08:00] VITALS: BP 108/60
[2018-08-21] MEDS: LINEZOLID 600 MG TABLET PO SCH ×2 (09:52→20:49)
[2018-08-21] MEDS ORDERED: EPOETIN ALFA (10,000 UNIT) 10,000 UNIT/ML VIAL IV ONE (11:00)
[2018-08-21 16:00] VITALS: BP 133/72
--- NOTE | 2018-08-21 18:00 | NUR ---
no surgery planned as of yet.having dialysis,tolerating well,given epogen by harness worker.
--- NOTE | 2018-08-21 19:30 | NUR ---
RN NOTES RECEIVED PT. AWAKE ON BED, A/OX4, DRESSING ON THE RIGHT FOOT DRY AND INTACT, DENIES PAIN, NO SOB, CALL LIGHT WITHIN REACH, SIDERAILSUPX2, CONTINUE TO MONITOR
[2018-08-21 20:00] VITALS: BP 125/65
--- NOTE | 2018-08-21 22:00 | NUR ---
RN NOTES PT. REFUSED TO HAVE HIS BLOOD SUGAR CHECK..IMPORTANCE OF CHECKING BLOOD SUGAR WAS EXPLAINED BUT PT. STILL REFUSING
--- NOTE | 2018-08-22 06:28 | NUR ---
RN NOTES AWAKE, MORNING CARE RENDERED, STILL REFUSING BLOOD SUGAR CHECKED, DENIES PAIN, NO SOB, CALL LIGHT WITHIN REACH, SIDERAILSUPX2, PT. NEEDS ATTENDED
[2018-08-22] MEDS: BLOOD SUGAR DIAGNOSTIC 1 EACH STRIP IN SCH ×4 (06:53→22:01)
--- NOTE | 2018-08-22 07:15 | NUR ---
RN OPENING NOTES RECEIVED PT. IN BED A&OX4. PT. IS NPO AWAITING A RIGHT HEEL WOUND DEBRIDEMENT. BREATHING UNLABORED ON ROOM AIR. NO S/S OF ACUTE DISTRESS. BED IS IN LOWEST, AND LOCKED POSITION. CALL LIGHT WITHIN REACH. ALL NEEDS MET. WILL CONTINUE TO ASSESS AND MONITOR.
[2018-08-22 07:16] LABS: BASOPHILS % (AUTO) 0.3 % (0.0-2.0); EOSINOPHILS % (AUTO) 0.9 % (0.0-6.0); HEMATOCRIT 28 % (39-51); HEMOGLOBIN 9.1 g/dL (13.5-17.5); MEAN CORPUSCULAR HGB CONC 33 g/dl (31.0-36.0); MEAN CORPUSCULAR VOLUME 88 fL (80-96); MONOCYTES # (AUTO) 0.6 /CMM (0.1-1.30); MONOCYTES % (AUTO) 5.7 % (2.0-12.0); NEUTROPHILS # (AUTO) 8.6 /CMM (1.8-8.9); NEUTROPHILS % (AUTO) 83.1 % (43.0-81.0); PLATELET COUNT (AUTO) 320 /CMM (150-450); RED BLOOD CELL COUNT(AUTO) 3.12 MIL/uL (4.5-6.0); WHITE BLOOD COUNT (AUTO) 10.4 K/uL (4.3-11.0)
[2018-08-22 07:45] LABS: CALCIUM, SERUM 7.5 mg/dL (8.5-10.1); CREATININE 3.4 mg/dL (0.6-1.3); MAGNESIUM 1.8 mg/dL (1.8-2.4); PHOSPHORUS 7.4 mg/dL (2.5-4.9); POTASSIUM 4.3 mmol/L (3.5-5.1)
[2018-08-22 08:00] VITALS: BP 115/72
[2018-08-22] MEDS: LINEZOLID 600 MG TABLET PO SCH ×2 (09:00→20:50)
[2018-08-22] MEDS ORDERED: FENTANYL PF 100MCG/2ML AMPUL ONE (13:37)
[2018-08-22] MEDS ORDERED: HYDROGEN PEROXIDE 480 ML BOTTLE ONE (14:31)
--- NOTE | 2018-08-22 15:30 | NUR ---
PT. RETURNED TO ROOM 329 POST WOUND DEBRIDEMENT PROCEDURE IN STABLE CONDITION, VITAL SIGNS ARE WNL. PT. WAS GIVEN ZOFRAN IN OR. POST OP DUE TO NAUSEA. NEW POST OP ORDERS ARE IN CHART. PER ORDER, RIGHT LOWER EXTREMITY NEEDS TO BE ELEVATED ON PILLOWS, AND BOTH HEELS OFFLOADING. PT. CAN RESUME DIET.
[2018-08-22] MEDS: HYDROCODONE/APAP 5/325MG 1 EACH TABLET PO PRN ×2 (17:32→22:16)
[2018-08-22] MEDS: ACETAMINOPHEN 325 MG TABLET PO PRN (18:50)
--- NOTE | 2018-08-22 19:50 | NUR ---
RN CLOSING NOTES PT. IN BED A&OX4. VITAL SIGNS WITHIN NORMAL LIMITS. PT. CAN RESUME DIET PER MD S/P RIGHT HEEL WOUND DEBRIDEMENT. BREATHING UNLABORED ON ROOM AIR. LAST BLOOD SUGAR WAS 101 MG/DL. PT. C/O PAIN IN LOWER BACK, PAIN MEDICATION WAS GIVEN. PT. WAS SEEN AN EXAMINED BY INFECTIOUS DISEASE TECHNICIAN CHEMICAL CLEANING, THERE ARE NEW ORDERS FOR BLOOD CULTURES. BED IS IN LOWEST, AND LOCKED POSITION. CALL LIGHT WITHIN REACH. ALL NEEDS MET. WILL ENDORSE REPORT TO NURSE.
[2018-08-22 20:00] VITALS: BP 106/53
--- NOTE | 2018-08-22 20:00 | NUR ---
MS RN NOTES RECEIVED PATIENT AWAKE IN BED WITH NO DISTRESS NOTED. CALL LIGHT WITHIN REACH. PATIENT S/P RIGHT FOOT WOUND DEBRIDEMENT WITH NO ACTIVE BLEEDING NOTED. HARD CAST IN PLACE WITH GOOD CIRCULATION NOTED. NO INCREASED SWELLING AND ABLE TO MOVE TOES FREELY. NO C/O PAIN OR DISCOMFORT. PERIPHERAL LINE INTACT AND PATENT. BIBI AV SHUNT INTACT WITH NO REDNESS, BLEEDING, OR SWELLING AND (+) BRUIT AND THRILL. HD CATH IN RUC INTACT WITH NO REDNESS, BLEEDING, OR SWELLING NOTED. CONTACT ISOLATION OBSERVED AND MAINTAINED AT ALL TIMES. BED IN LOW LOCK SETTING. ALL BELONGINGS KEPT NEAR BEDSIDE. WILL CONTINUE TO MONITOR.
[2018-08-22] MEDS: CEFEPIME 1 GM in IV D5W 50 ML IV SCH (20:51)
--- NOTE | 2018-08-22 22:29 | NUR ---
SPOKE WITH DR. PARSONS RE: MORPHINE OUT OF STOCK. WITH NEW ORDER TO DILAUDID 0.25MG IV Q4HR PRN. ORDER READ BACK, VERIFIED, NOTED AND CARRIED OUT.
[2018-08-23] VITALS: BP 126/78
[2018-08-23] MEDS: HYDROCODONE/APAP 5/325MG 1 EACH TABLET PO PRN (05:52)
[2018-08-23] MEDS: BLOOD SUGAR DIAGNOSTIC 1 EACH STRIP IN SCH ×4 (06:09→21:32)
--- NOTE | 2018-08-23 06:14 | NUR ---
MS RN CLOSING NOTES PATIENT AWAKE IN BED WITH NO DISTRESS NOTED. CALL LIGHT WITHIN REACH. HARD CAST IN PLACE WITH GOOD CIRCULATION NOTED. NO INCREASED SWELLING AND ABLE TO MOVE TOES FREELY. NO ACTIVE BLEEDING NOTED. NO C/O FURTHER C/O PAIN OR DISCOMFORT. PATIENT REFUSED MORNING SUGAR CHECK AND DIAPER CHANGE X3 DESPITE EXPLANATION OF RISKS/BENEFITS X3. PERIPHERAL LINE INTACT AND PATENT. BIBI AV SHUNT INTACT WITH NO REDNESS, BLEEDING, OR SWELLING AND (+) BRUIT AND THRILL. HD CATH IN RUC INTACT WITH NO REDNESS, BLEEDING, OR SWELLING NOTED. CONTACT ISOLATION OBSERVED AND MAINTAINED AT ALL TIMES. BED IN LOW LOCK SETTING. ALL BELONGINGS KEPT NEAR BEDSIDE. WILL ENDORSE TO ONCOMING SHIFT.
--- NOTE | 2018-08-23 07:30 | NUR ---
MS RN Opening Note Received patient awake, resting in bed. Patient alert and oriented x 4, able to make needs known. Respirations even and unlabored, saturating on 2 L oxygen via nasal cannula. No acute distress noted and no complaints of pain at this time. Peripheral IV access on left forearm 18 gauge, patent, intact and saline locked. BIBI AV shunt intact, bruit and thrill present; no redness or swelling of site noted. Hemodialysis catheter to [facility], intact and not being accessed at this time; no redness or swelling of the site noted. Hard cast noted to the right lower leg, no signs of increase swelling. Able to move toes and good circulation of toes noted. Contact isolation in place and maintained at all times per protocol. Safety and Fall precautions in place: bed in lowest and locked position, side rails up x 2, bed alarm on, call light within reach. Reviewed safety measures and plan of care with patient, verbalized understanding. Will continue to monitor and intervene as needed. Addendum: 08/23/18 at 2005 by HOA HAWK RN Patient saturating on room air, no oxygen.
[2018-08-23 07:39] LABS: BASOPHILS # (AUTO) 0.1 /CMM (0.0-0.2); BASOPHILS % (AUTO) 0.4 % (0.0-2.0); HEMATOCRIT 29 % (39-51); HEMOGLOBIN 9.3 g/dL (13.5-17.5); LYMPHOCYTES # (AUTO) 0.4 /CMM (0.8-4.8); LYMPHOCYTES % (AUTO) 1.8 % (20.0-44.0); MEAN CORPUSCULAR HGB CONC 32 g/dl (31.0-36.0); MEAN CORPUSCULAR VOLUME 89 fL (80-96); MONOCYTES # (AUTO) 0.9 /CMM (0.1-1.30); MONOCYTES % (AUTO) 4.3 % (2.0-12.0); NEUTROPHILS # (AUTO) 20.3 /CMM (1.8-8.9); NEUTROPHILS % (AUTO) 93.5 % (43.0-81.0); PLATELET COUNT (AUTO) 316 /CMM (150-450); RED BLOOD CELL COUNT(AUTO) 3.28 MIL/uL (4.5-6.0); WHITE BLOOD COUNT (AUTO) 21.7 K/uL (4.3-11.0)
[2018-08-23 08:00] VITALS: BP 116/60
--- NOTE | 2018-08-23 08:00 | NUR ---
Patient refused ordered chest x-ray to check lungs. Educated on benefits of this test to check for post-procedure complications. However, patient still refusing. Notified hospitalist, KENYA Fulton of refusal of chest x-ray.
[2018-08-23 08:10] LABS: CALCIUM, SERUM 7.5 mg/dL (8.5-10.1); CREATININE 4.1 mg/dL (0.6-1.3); MAGNESIUM 1.8 mg/dL (1.8-2.4); PHOSPHORUS 4.9 mg/dL (2.5-4.9)
--- NOTE | 2018-08-23 08:30 | NUR ---
Patient currently refusing AM care, linen change, and repositioning/turning at this time. Educated multiple times on benefits of the above and risks of not completing as such. Will try again later when pain in more controlled.
[2018-08-23] MEDS: LINEZOLID 600 MG TABLET PO SCH ×2 (09:26→20:22)
[2018-08-23] MEDS: ACETAMINOPHEN 325 MG TABLET PO PRN (09:26)
[2018-08-23 11:05] VITALS: BP 150/75
--- NOTE | 2018-08-23 12:30 | NUR ---
Patient refused physical therapy evaluation. Educated and encourage patient to participate, to learn how to transfer safely to wheelchair with leg cast. Patient still refused. Will try again tomorrow.
[2018-08-23] MEDS ORDERED: EPOETIN ALFA (10,000 UNIT) 10,000 UNIT/ML VIAL IV ONE (13:00)
[2018-08-23] MEDS: HYDROMORPHONE 1 MG/1 ML DISP.SYRIN IV PRN (13:01)
--- NOTE | 2018-08-23 15:00 | NUR ---
Patient agreed to be cleaned up by RN and SCHEDULE ANNOUNCER staff. Will clean up, change linens and reposition patient at this time.
--- NOTE | 2018-08-23 15:30 | NUR ---
Dialysis nurse at bedside for HD. Will continue to monitor.
[2018-08-23 16:00] VITALS: BP 96/52
[2018-08-23] MEDS: LACTOBACILLUS RHAMNOSUS GG 1 EACH CAP.SPRINK PO SCH (17:00)
--- NOTE | 2018-08-23 18:45 | NUR ---
HD complete. +300 ml fluid intake, BP stablized. Vital signs stable. Will continue to monitor.
--- NOTE | 2018-08-23 19:00 | NUR ---
MS RN Closing Note Patient currently awake, resting in bed. Patient alert and oriented x 4, able to make needs known. Respirations even and unlabored, saturating on room air. No acute distress noted and no complaints of pain at this time. Peripheral IV access on left forearm 18 gauge, patent, intact and saline locked. BIBI AV shunt intact, bruit and thrill present; no redness or swelling of site noted. Hemodialysis catheter to [facility], intact and not being accessed at this time; no redness or swelling of the site noted. Hard cast noted to the right lower leg, no signs of increase swelling. Able to move toes and good circulation of toes noted. Contact isolation in place and maintained at all times per protocol. Safety and Fall precautions in place: bed in lowest and locked position, side rails up x 2, bed alarm on, call light within reach. Reviewed safety measures and plan of care with patient, verbalized understanding. Will endorse to mini shifter RN for continuity of care.
--- NOTE | 2018-08-23 19:15 | NUR ---
MS RN OPENING NOTES Received patient A/O x 4, on Solares's position on bed. On RA, no SOB/distress noted. RLE casted. S/P R foot debridement day 1. Pitting edema +1 to +2 BLE noted. Denies any discomfort at this time. Kept bed low and locked. Call light on bedside. Will continue to monitor accordingly.
[2018-08-23 20:00] VITALS: BP 93/52
[2018-08-23] MEDS: CEFEPIME 1 GM in IV D5W 50 ML IV SCH (20:21)
--- NOTE | 2018-08-23 21:32 | NUR ---
MS RN NOTES Patient refused accu-chek. Explained to patient the benefits of monitoring BS and its therapeutic regimen. Patient verbalized understanding but insisted to refused. Patient denies discomfort at this time, able to eat independently. Will continue to monitor accordingly.
--- NOTE | 2018-08-24 06:31 | NUR ---
MS RN CLOSING NOTES Patient awake sitting on wheel chair per request. Denies discomfort at this time. Afebrile the whole shift. With patent peripheral IV line LFA G#18,SL. All needs attended. Kept clean, dry and comfortable. No new unusualities noted. Patient refused all accu-chek and insulin regimen. Endorsed to the next shift.
[2018-08-24 06:32] LABS: CALCIUM, SERUM 7.6 mg/dL (8.5-10.1); MAGNESIUM 1.8 mg/dL (1.8-2.4); PHOSPHORUS 3.6 mg/dL (2.5-4.9); POTASSIUM 4.4 mmol/L (3.5-5.1)
[2018-08-24 07:15] LABS: BASOPHILS % (AUTO) 0.2 % (0.0-2.0); EOSINOPHILS % (AUTO) 0.1 % (0.0-6.0); HEMATOCRIT 26 % (39-51); HEMOGLOBIN 8.3 g/dL (13.5-17.5); LYMPHOCYTES # (AUTO) 0.9 /CMM (0.8-4.8); LYMPHOCYTES % (AUTO) 5.4 % (20.0-44.0); MEAN CORPUSCULAR HGB CONC 32 g/dl (31.0-36.0); MEAN CORPUSCULAR VOLUME 90 fL (80-96); MONOCYTES # (AUTO) 0.9 /CMM (0.1-1.30); MONOCYTES % (AUTO) 5.7 % (2.0-12.0); NEUTROPHILS # (AUTO) 14.7 /CMM (1.8-8.9); NEUTROPHILS % (AUTO) 88.6 % (43.0-81.0); PLATELET COUNT (AUTO) 302 /CMM (150-450); RED BLOOD CELL COUNT(AUTO) 2.89 MIL/uL (4.5-6.0); WHITE BLOOD COUNT (AUTO) 16.5 K/uL (4.3-11.0)
[2018-08-24] MEDS: BLOOD SUGAR DIAGNOSTIC 1 EACH STRIP IN SCH ×4 (07:27→21:06)
--- NOTE | 2018-08-24 07:42 | NUR ---
MS RN Opening Note Received patient awake, resting in bed. Patient alert and oriented x 4, able to make needs known. Respirations even and unlabored, saturating on room air. No acute distress noted and no complaints of pain at this time. Peripheral IV access on left forearm 18 gauge, patent, intact and saline locked. BIBI AV shunt intact, bruit and thrill present; no redness or swelling of site noted. Hemodialysis catheter to [facility], intact and not being accessed at this time; no redness or swelling of the site noted. Hard cast noted to the right lower leg, no signs of increase swelling. Able to move toes and good circulation of toes noted. Contact isolation in place and maintained at all times per protocol. Safety and Fall precautions in place: bed in lowest and locked position, side rails up x 2, bed alarm on, call light within reach. Reviewed safety measures and plan of care with patient, verbalized understanding. Will continue to monitor and intervene as needed.
[2018-08-24 08:00] VITALS: BP 108/55
[2018-08-24] MEDS: LINEZOLID 600 MG TABLET PO SCH ×2 (09:20→21:09)
[2018-08-24] MEDS: LACTOBACILLUS RHAMNOSUS GG 1 EACH CAP.SPRINK PO SCH ×2 (09:20→18:07)
[2018-08-24] MEDS: HYDROMORPHONE 1 MG/1 ML DISP.SYRIN IV PRN (09:22)
[2018-08-24] MEDS: HYDROCODONE/APAP 5/325MG 1 EACH TABLET PO PRN (10:53)
[2018-08-24 16:00] VITALS: BP 99/72
--- NOTE | 2018-08-24 17:00 | NUR ---
MS RN Note Patient allowed for sponge bath. Transferred self to wheelchair with standby assist; wheeled chair to bathroom. Transferred self to [facility].
--- NOTE | 2018-08-24 17:58 | NUR ---
Patient up in wheelchair for dinner. Will continue to monitor.
--- NOTE | 2018-08-24 19:00 | NUR ---
MS RN Closing Note Patient currently awake, in wheelchair at bedside. Patient alert and oriented x 4, able to make needs known. Respirations even and unlabored, saturating on room air. No acute distress noted and no complaints of pain at this time. Peripheral IV access on left forearm 18 gauge, patent, intact and saline locked. BIBI AV shunt intact, bruit and thrill present; no redness or swelling of site noted. Hemodialysis catheter to [facility], intact and not being accessed at this time; no redness or swelling of the site noted. Hard cast noted to the right lower leg, no signs of increase swelling. Able to move toes and good circulation of toes noted. Contact isolation in place and maintained at all times per protocol. Safety and Fall precautions in place: bed in lowest and locked position, side rails up x 2, bed alarm on, call light within reach. Reviewed safety measures and plan of care with patient, verbalized understanding. Will endorse to night club manager RN for continuity of care.
[2018-08-24 20:00] VITALS: BP 95/61
--- NOTE | 2018-08-24 20:06 | NUR ---
patient recieved on the wheelchair and tolersting well. with call light within treach, imstruction to call if desssires to go v=back to bed
[2018-08-24] MEDS: CEFEPIME 1 GM in IV D5W 50 ML IV SCH (20:45)
--- NOTE | 2018-08-24 20:52 | NUR ---
patient asssited back to bed .
[2018-08-25 06:31] VITALS: BP 127/74
--- NOTE | 2018-08-25 07:18 | NUR ---
PATIENT RFUSED ACCUCHECK AT 2100 HOURSCOMPLAINTS OF PAIN TO THE BACK ON MOVEMENT
[2018-08-25] MEDS: BLOOD SUGAR DIAGNOSTIC 1 EACH STRIP IN SCH ×4 (07:30→21:23)
--- NOTE | 2018-08-25 07:30 | NUR ---
PT RECEIVED RESTING COMFORTABLY IN BED WITH EYES CLOSED. NO S/S OR C/O PAIN OR DISTRESS NOTED. SIDE RAILS UP X2, CALL LIGHT LEFT WITHIN REACH. WILL CONTINUE PLAN OF CARE.
[2018-08-25 08:00] VITALS: BP 118/63
[2018-08-25 08:03] LABS: BASOPHILS % (AUTO) 0.3 % (0.0-2.0); EOSINOPHILS % (AUTO) 0.9 % (0.0-6.0); HEMATOCRIT 26 % (39-51); HEMOGLOBIN 8.5 g/dL (13.5-17.5); LYMPHOCYTES # (AUTO) 0.6 /CMM (0.8-4.8); LYMPHOCYTES % (AUTO) 6.1 % (20.0-44.0); MEAN CORPUSCULAR HGB CONC 32 g/dl (31.0-36.0); MEAN CORPUSCULAR VOLUME 89 fL (80-96); MONOCYTES # (AUTO) 0.5 /CMM (0.1-1.30); MONOCYTES % (AUTO) 4.9 % (2.0-12.0); NEUTROPHILS # (AUTO) 9.1 /CMM (1.8-8.9); NEUTROPHILS % (AUTO) 87.8 % (43.0-81.0); PLATELET COUNT (AUTO) 322 /CMM (150-450); RED BLOOD CELL COUNT(AUTO) 2.95 MIL/uL (4.5-6.0); WHITE BLOOD COUNT (AUTO) 10.3 K/uL (4.3-11.0)
[2018-08-25] MEDS: LACTOBACILLUS RHAMNOSUS GG 1 EACH CAP.SPRINK PO SCH ×2 (08:11→17:41)
[2018-08-25] MEDS: LINEZOLID 600 MG TABLET PO SCH ×2 (08:11→21:19)
[2018-08-25 08:24] LABS: CALCIUM, SERUM 7.8 mg/dL (8.5-10.1); CREATININE 4.7 mg/dL (0.6-1.3); MAGNESIUM 1.8 mg/dL (1.8-2.4); PHOSPHORUS 4.8 mg/dL (2.5-4.9); POTASSIUM 4.9 mmol/L (3.5-5.1)
[2018-08-25] MEDS ORDERED: LIDOCAINE 1% INJ 50 ML MDV IJ ONE (11:30)
[2018-08-25] MEDS: PROSOURCE / PROSTAT (PYXIS) 30 ML UDC PO SCH ×2 (14:00→17:40)
[2018-08-25] MEDS ORDERED: NEPRO VAN 237 ML CAN PO PRN (14:00)
[2018-08-25 16:00] VITALS: BP 126/66
[2018-08-25 20:30] VITALS: BP 115/61
[2018-08-25] MEDS: CEFEPIME 1 GM in IV D5W 50 ML IV SCH (20:54)
--- NOTE | 2018-08-25 22:00 | NUR ---
NURSES NOTE: A/o x 4 lying bed on r/a S/l 18 ga to lfa intact and patent, lt upper picc intact, using urinal to void refusing blood sugar checks. cast lle. remains on [facility]sa contact isolation to the wound. Siderails up Call ight within reach.
[2018-08-26] MEDS: HYDROMORPHONE 1 MG/1 ML DISP.SYRIN IV PRN (05:08)
--- NOTE | 2018-08-26 05:23 | NUR ---
Closing note: Remains refusing blood sugar checks c/o 03/22 back pain given Dil 0.25 mg ivp by Aubrey Hess. Lying in bed siderails up call light within reach.
[2018-08-26] MEDS: BLOOD SUGAR DIAGNOSTIC 1 EACH STRIP IN SCH ×2 (07:30→12:00)
[2018-08-26 07:42] LABS: BASOPHILS % (AUTO) 0.5 % (0.0-2.0); EOSINOPHILS % (AUTO) 1.3 % (0.0-6.0); HEMATOCRIT 25 % (39-51); HEMOGLOBIN 7.9 g/dL (13.5-17.5); LYMPHOCYTES # (AUTO) 0.8 /CMM (0.8-4.8); LYMPHOCYTES % (AUTO) 10.5 % (20.0-44.0); MEAN CORPUSCULAR HGB CONC 32 g/dl (31.0-36.0); MEAN CORPUSCULAR VOLUME 90 fL (80-96); MONOCYTES # (AUTO) 0.4 /CMM (0.1-1.30); MONOCYTES % (AUTO) 5.3 % (2.0-12.0); NEUTROPHILS # (AUTO) 6.2 /CMM (1.8-8.9); NEUTROPHILS % (AUTO) 82.4 % (43.0-81.0); PLATELET COUNT (AUTO) 288 /CMM (150-450); RED BLOOD CELL COUNT(AUTO) 2.75 MIL/uL (4.5-6.0); WHITE BLOOD COUNT (AUTO) 7.5 K/uL (4.3-11.0)
--- NOTE | 2018-08-26 07:44 | NUR ---
RN OPENING NOTES PT WAS RECEIVED IN BED AT LOWEST AND LOCKED POSITION WITH SIDE RAILS UP X2, A/O X4, BREATHING EVEN AND UNLABORED ON RA, NO S/S OF PAIN OR DISTRESS NOTED AT THIS TIME, IV PATENT AND INTACT, SAFETY PRECAUTIONS IN PLACE, CALL LIGHT WITHIN REACH, WILL MONITOR ACCORDINGLY
[2018-08-26 07:53] LABS: CALCIUM, SERUM 7.8 mg/dL (8.5-10.1); CREATININE 3.8 mg/dL (0.6-1.3); POTASSIUM 4.6 mmol/L (3.5-5.1)
[2018-08-26 08:00] VITALS: BP 121/70
[2018-08-26] MEDS: PROSOURCE / PROSTAT (PYXIS) 30 ML UDC PO SCH (08:35)
[2018-08-26] MEDS: LINEZOLID 600 MG TABLET PO SCH (08:35)
[2018-08-26] MEDS: LACTOBACILLUS RHAMNOSUS GG 1 EACH CAP.SPRINK PO SCH (08:35)
--- NOTE | 2018-08-26 12:00 | NUR ---
RN NOTE PT REFUSED AM BLOOD SUGAR CHECK AND AFTERNOON BLOOD SUGAR CHECK
[2018-08-26] MEDS ORDERED: DAPT350V IV (12:30)
[2018-08-26] MEDS: HYDROCODONE/APAP 5/325MG 1 EACH TABLET PO PRN (14:24)
--- NOTE | 2018-08-26 16:49 | NUR ---
DISCHARGE NOTES PT WAS D/C AT THIS TIME IN MEDICALLY STABLE CONDITION BACK HOME WITH HOME HEALTH AT THIS TIME. PT WAS PICKED BY HIS FRIEND WHERE THEY LEFT IN THEIR PRIVATE CAR. ALL D/C PAPERWORK AND BELONGINGS LIST WERE DISCUSSED AND SIGNED BY THE PT. PT LEFT WITH ALL BELONGINGS. IV AND ID BAND WERE REMOVED. WOUND PHOTOS WERE DOCUMENTED BUT PT REFUSED FOR PHOTOS OF HIS FEET TO BE TAKEN BECAUSE HE DID NOT WANT THE DRESSINGS TO BE REMOVED. EXITCARE WAS PROVIDED. ALL NEEDS WERE ATTENDED TO DURING HIS STAY. PT WAS ESCORTED BY ME AT THIS TIME WHERE THEY LEFT IN THEIR PRIVATE CAR.
== END 2018-08-26 16:45 | disposition home health service (06) | DRG 987 ==
LOC: ER 14:02 → MED 15:45
PROVIDERS: ADMIT Internal Medicine; ATTEND Internal Medicine
PROC: 30233N1 Transfusion of Nonautologous Red Blood Cells into Peripheral Vein, Percutaneous Approach (ICD-10-PCS; principal; 2018-08-19)
PROC: 5A1D70Z Performance of Urinary Filtration, Intermittent, Less than 6 Hours Per Day (ICD-10-PCS; 2018-08-19)
PROC: 5A1D70Z Performance of Urinary Filtration, Intermittent, Less than 6 Hours Per Day (ICD-10-PCS; 2018-08-21)
PROC: 0QBL0ZZ Excision of Right Tarsal, Open Approach (ICD-10-PCS; 2018-08-22)
PROC: 5A1D70Z Performance of Urinary Filtration, Intermittent, Less than 6 Hours Per Day (ICD-10-PCS; 2018-08-23)
PROC: 5A1D70Z Performance of Urinary Filtration, Intermittent, Less than 6 Hours Per Day (ICD-10-PCS; 2018-08-25)
DX: E11.51 Type 2 diabetes mellitus with diabetic peripheral angiopathy without gangrene (principal); N18.6 End stage renal disease; J18.9 Pneumonia, unspecified organism; L97.419 Non-pressure chronic ulcer of right heel and midfoot with unspecified severity; I12.0 Hypertensive chronic kidney disease with stage 5 chronic kidney disease or end stage renal disease; M86.8X7 Other osteomyelitis, ankle and foot; E11.621 Type 2 diabetes mellitus with foot ulcer; E11.610 Type 2 diabetes mellitus with diabetic neuropathic arthropathy; Z88.0 Allergy status to penicillin; E11.22 Type 2 diabetes mellitus with diabetic chronic kidney disease; Z99.2 Dependence on renal dialysis; Z79.4 Long term (current) use of insulin; Z79.899 Other long term (current) drug therapy; D63.8 Anemia in other chronic diseases classified elsewhere; E78.5 Hyperlipidemia, unspecified; N40.0 Benign prostatic hyperplasia without lower urinary tract symptoms; M19.90 Unspecified osteoarthritis, unspecified site; I87.2 Venous insufficiency (chronic) (peripheral); E66.9 Obesity, unspecified; Z86.14 Personal history of Methicillin resistant Staphylococcus aureus infection; Z98.890 Other specified postprocedural states; Z79.84 Long term (current) use of oral hypoglycemic drugs; B95.62 Methicillin resistant Staphylococcus aureus infection as the cause of diseases classified elsewhere; S86.011A Strain of right Achilles tendon, initial encounter; X58.XXXA Exposure to other specified factors, initial encounter; Y92.9 Unspecified place or not applicable
CPT/HCPCS: 36415; 36569; 71045-TC; 73718-TC; 73721-TC; 80048-TC; 82962-TC; 83735-TC; 84100-TC; 85025-TC; 85730-TC; 86850-TC; 86921-TC; 87040-TC; 87070-TC; 87081-TC; 87086-TC; 90935-TC; 93307-TC; A4216; A6209; A6253; A6402; A6403; C1713; C1751; G0378; J0690; J0692; J0878; J0885; J1170; J1815; J2020; J2405; J2704; J3010; J3370; J3490; J7050; J7060; P9016-BL

== ENCOUNTER 2018-08-30 10:20 | Outpatient (CLI) | payer MEDICARE ==
[~2018-08-30 10:20] MED LIST changes: -AMLO5TAB9 PO; -BUME1TAB4 PO; +BUPIVACAINE 0.5 % PF 150 MG/30 ML VIAL ONE; -CARI350T27 PO; -CEPH-570 PO; +DAPT350V IV; -FLUC100T8 PO; -FLUD0.1T PO; -GLYB5TAB7 PO; -INSU100C7 SQ; -LACT1CAP72 PO; +LIDOCAINE HCL/PF 1% 30 ML SDV ONE; -METO25TA20 PO; +ONDANSETRON HCL/PF 4 MG/2 ML VIAL ONE; -SODI473S8 TOP; -TERA5CAP4 PO
== END 2018-08-30 23:59 | disposition home health service (06) ==
LOC: WOU 10:20
PROVIDERS: ATTEND Podiatrist Foot & Ankle Surgery
DX: T86.821 Skin graft (allograft) (autograft) failure (principal); E11.621 Type 2 diabetes mellitus with foot ulcer; L97.419 Non-pressure chronic ulcer of right heel and midfoot with unspecified severity; E11.610 Type 2 diabetes mellitus with diabetic neuropathic arthropathy; I89.0 Lymphedema, not elsewhere classified; E11.42 Type 2 diabetes mellitus with diabetic polyneuropathy; E11.22 Type 2 diabetes mellitus with diabetic chronic kidney disease; N18.6 End stage renal disease; Z99.2 Dependence on renal dialysis; Z79.899 Other long term (current) drug therapy; M66.371 Spontaneous rupture of flexor tendons, right ankle and foot
CPT/HCPCS: 29445; 29581; A6207; A6253; A6402; Z7610; J2405; J3490

== ENCOUNTER 2018-09-10 10:20 | Outpatient (CLI) | payer MEDICARE ==
[~2018-09-10 10:20] MED LIST changes: -BUPIVACAINE 0.5 % PF 150 MG/30 ML VIAL ONE; +CLONIDINE HCL 0.1 MG TABLET ONE; -LIDOCAINE HCL/PF 1% 30 ML SDV ONE; -ONDANSETRON HCL/PF 4 MG/2 ML VIAL ONE
== END 2018-09-10 23:59 | disposition home health service (06) ==
LOC: WOU 10:20
PROVIDERS: ATTEND Podiatrist Foot & Ankle Surgery
DX: E11.621 Type 2 diabetes mellitus with foot ulcer (principal); L97.412 Non-pressure chronic ulcer of right heel and midfoot with fat layer exposed; S81.811A Laceration without foreign body, right lower leg, initial encounter; S90.32XA Contusion of left foot, initial encounter; S80.12XA Contusion of left lower leg, initial encounter; M66 Spontaneous rupture of synovium and tendon; E11.22 Type 2 diabetes mellitus with diabetic chronic kidney disease; E11.42 Type 2 diabetes mellitus with diabetic polyneuropathy; E11.69 Type 2 diabetes mellitus with other specified complication; M86.8X7 Other osteomyelitis, ankle and foot; N18.6 End stage renal disease; Z99.2 Dependence on renal dialysis; W22.8XXA Striking against or struck by other objects, initial encounter; Y93.89 Activity, other specified; Y92.89 Other specified places as the place of occurrence of the external cause
CPT/HCPCS: 29445; A6402 ×2; A6452; Z7610

== ENCOUNTER 2018-09-17 10:00 | Outpatient (CLI) | payer MEDICARE ==
[~2018-09-17 10:00] MED LIST changes: -CLONIDINE HCL 0.1 MG TABLET ONE
== END 2018-09-17 23:59 | disposition home health service (06) ==
LOC: WOU 10:00
PROVIDERS: ATTEND Podiatrist Foot & Ankle Surgery
DX: E11.621 Type 2 diabetes mellitus with foot ulcer (principal); L97.416 Non-pressure chronic ulcer of right heel and midfoot with bone involvement without evidence of necrosis; L97.522 Non-pressure chronic ulcer of other part of left foot with fat layer exposed; M66.871 Spontaneous rupture of other tendons, right ankle and foot; E11.22 Type 2 diabetes mellitus with diabetic chronic kidney disease; E11.42 Type 2 diabetes mellitus with diabetic polyneuropathy; E11.610 Type 2 diabetes mellitus with diabetic neuropathic arthropathy; E11.69 Type 2 diabetes mellitus with other specified complication; M86.8X7 Other osteomyelitis, ankle and foot; N18.6 End stage renal disease; Z99.2 Dependence on renal dialysis; Z98.1 Arthrodesis status
CPT/HCPCS: 11042; 11044; A6209; A6402; A6452